=== PATIENT | male | born 1960 | race Caucasian/White ===

== ENCOUNTER 2021-03-07 15:03 | Inpatient (IN) | payer MEDICAID, SELFPAY ==
[2021-03-07 15:24] VITALS: BMI 26.6
[2021-03-07 15:30] VITALS: BP 107/71; PULSE 65; RESP 17; TEMP 36.8; O2SAT 96
[2021-03-07 20:44] VITALS: BP 105/70; PULSE 58; RESP 17; TEMP 36.7; O2SAT 99
[2021-03-08 06:00] VITALS: BP 98/59; PULSE 54; RESP 17; TEMP 36.8; O2SAT 98
--- NOTE | 2021-03-08 12:32 | NPU.GN ---
[facility] Topic:Coping Skills General Mood of Group:Refused group.
[2021-03-08 14:00] VITALS: BP 134/79; PULSE 88; RESP 18; TEMP 36.7; O2SAT 96
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
[2021-03-08 22:00] VITALS: BP 142/81; PULSE 79; RESP 16; TEMP 36.8; O2SAT 99
[2021-03-09 06:00] VITALS: BP 91/56; PULSE 65; RESP 17; TEMP 36.8; O2SAT 98
[2021-03-09] MEDS: fluoxetine 20 mg Capsule 40 MG PO (09:16)
[2021-03-09] MEDS: gabapentin 300 mg Capsule 600 MG PO ×3 (09:16→21:15)
[2021-03-09 14:00] VITALS: BP 105/67; PULSE 72; RESP 18; TEMP 36.7; O2SAT 97
--- NOTE | 2021-03-09 17:32 | P.PN_ITS ---
Subjective NPU Subjective: Interval history: Patient presents today reporting that he feels like he is still confused. We discussed it is likely his withdrawal from Valium. He reports that otherwise he is tolerating his medications being restarted. He reports that he is sleeping a lot and eating okay. We agreed that we would continue to monitor him as he adjusts from his overdose. Mental Status Exam MSE Comments: This is a well-nourished, well-developed, white male. Cooperative with exam in hospital scrubs, in mild to moderate distress, with limited grooming and eye contact. No abnormal movements except for mild psychomotor retardation. Speech was limited and decreased rate and volume with pauses. Mood described as confused; affect congruent. Thought process, organized. Thought content: patient denied any suicidal or homicidal ideation, there were no delusions reported or noted, patient denied any auditory or visual hallucinations. Attention, concentration, and memory appear intact but were not formally tested. He is alert and oriented times three. Insight and judgment are impaired, impulse control impaired. Vitals/I&O/Wt Last Vital Signs Temp 98.2 F 03/09/21 22:00 Pulse 71 03/09/21 22:00 Resp 18 03/09/21 22:00 BP 112/83 03/09/21 22:00 Pulse Ox 97 03/09/21 22:00 A&P Additional A&P Information (1) Altered mental status: (2) Mild benzodiazepine use disorder: (3) Alcohol use disorder: (4) Major depressive disorder: This is a 60-year-old, white male, with a long history of mental health issues, trauma and addiction issues, who presents with depression, active addiction, and recent reported suicide attempt off of his medication, endorsing a willingness to restart his medication. RECOMMENDATION AND PLAN: 1. Continue current medication. We will consider his Valium moving forward. 2. Encourage individual, group, and milieu therapy. 3. Continue q-15 minute checks for safety. 4. Initiate CIWA protocol in an attempt to get collateral information. Involuntary Hold Information 96 Hour Hold: 96 Hour Involuntary Admission: No Attestations NPU Medical Necessity Statement*: Inpatient hospitalization is medically necessary and the clinically appropriate intervention, at this time. We will monitor medications and make changes as indicated. Likely length of stay is 2-4 days. Coding Level of Care Code Acute Packaging Associate for Su Sweet
[2021-03-09] MEDS: quetiapine 100 mg Tablet PO (21:20)
[2021-03-09 22:00] VITALS: BP 112/83; PULSE 71; RESP 18; TEMP 36.8; O2SAT 97
[2021-03-10 06:00] VITALS: BP 133/72; PULSE 142; RESP 20; TEMP 36.5; O2SAT 100
[2021-03-10] MEDS: fluoxetine 20 mg Capsule 40 MG PO (08:30)
[2021-03-10] MEDS: gabapentin 300 mg Capsule 600 MG PO ×3 (08:30→21:29)
--- NOTE | 2021-03-10 08:48 | P.PN_ITS ---
Subjective NPU Subjective: Interval history: Ede presents today reporting that he is still feeling confused and unclear about his circumstances. We discussed the risk- benefit alternatives of taking a dose of Ativan now and is possibly rescheduling with the Valium maybe as needed and a tapering dose or possibly using Librium. We discussed that given his behavior with the Valium that long-term use or a large prescription seems unreasonable. He is hoping to feel better and less confused soon. Mental Status Exam MSE Comments: This is a well-nourished, well-developed, white male. Cooperative with exam in hospital scrubs, in mild distress, with limited grooming and eye contact. No abnormal movements except for mild psychomotor retardation. Speech was limited and decreased rate and volume with pauses. Mood described as about the same; affect congruent. Thought process, organized. Thought content: patient denied any suicidal or homicidal ideation, there were no delusions reported or noted, patient denied any auditory or visual hallucinations. Attention, concentration, and memory appear intact but were not formally tested. He is alert and oriented times three. Insight and judgment are impaired, impulse control impaired. Vitals/I&O/Wt Last Vital Signs Temp 97.7 F 03/10/21 06:00 Pulse 142 H 03/10/21 06:00 Resp 20 H 03/10/21 06:00 BP 133/72 03/10/21 06:00 Pulse Ox 100 03/10/21 06:00 A&P Additional A&P Information (1) Altered mental status: (2) Mild benzodiazepine use disorder: (3) Alcohol use disorder: (4) Major depressive disorder: This is a 60-year-old, white male, with a long history of mental health issues, trauma and addiction issues, who presents with depression, active addiction, and recent reported suicide attempt off of his medication, endorsing a willingness to restart his medication. RECOMMENDATION AND PLAN: 1. Continue current medication. We will consider a scheduled benzodiazepine like Librium for possible assistance with his likely withdrawal from the benzodiazepines. 2. Encourage individual, group, and milieu therapy. 3. Continue q-15 minute checks for safety. 4. Initiate CIWA protocol in an attempt to get collateral information. Involuntary Hold Information 96 Hour Hold: 96 Hour Involuntary Admission: No Attestations NPU Medical Necessity Statement*: Inpatient hospitalization is medically necessary and the clinically appropriate intervention, at this time. We will monitor medications and make changes as indicated. Likely length of stay is 2-4 days. Coding Level of Care Code Acute Biodiesel Processing Technician for Su Sweet
[2021-03-10] MEDS: LORazepam 2 mg Tablet PO (08:58)
[2021-03-10] MEDS: multivitamin therapeutic Tablet 1 TAB PO (10:00)
[2021-03-10] MEDS: thiamine 100 mg Tablet PO (10:00)
[2021-03-10] MEDS: folic acid 1 mg Tablet PO (10:00)
[2021-03-10 14:00] VITALS: BP 93/63; PULSE 50; RESP 16; TEMP 36.4; O2SAT 99
[2021-03-10] MEDS: hyDROXYzine 25 mg Capsule 50 MG PO ×2 (14:31→21:28)
--- NOTE | 2021-03-10 15:08 | PC.NURSE ---
Patient fall At approximately 1500 patient was standing at nurses desk talking and HEAD SILVERMAN saw him go down. He was assisted up and sat on the bench. Vitals taken and neuro checks. Dr Rivera, wash house supervisor, loading unit operator powder charging and community integration specialist notified. Patient stated he barely hit his head, no redness or pain. Patient thinks he might have stumbled on his blanket. Patient stable, will continue to monitor.
[2021-03-10 15:15] VITALS: BP 107/68; PULSE 49; RESP 16; TEMP 36.2; O2SAT 100
[2021-03-10 20:00] VITALS: BP 127/81; PULSE 79; RESP 17; TEMP 36.8
[2021-03-10 20:03] LABS: Add Urine Microscopic? NO; Charge for UA Resulting for Rev
[2021-03-10 20:15] LABS: Urine Appearance Clear (CLEAR); Urine Color Yellow (Yellow)
[2021-03-10 20:16] LABS: Bilirubin Urine Neg (Negative); Blood Urine Neg (Negative); Glucose Urine UA Norm (Normal); Ketones Urine Negative (Negative); Leukocyte Esterase Urine Negative (Negative); Nitrate Urine Negative (Negative); Protein Urine Neg (Negative); Specific Gravity, Urine 1.005 (1.005-1.030); Urobilinogen Urine Norm (Negative); pH Urine 6.5 (5-7)
[2021-03-10 20:40] VITALS: BP 127/81; PULSE 79; RESP 17; TEMP 36.8; O2SAT 99
[2021-03-10 20:57] LABS: Amphetamines Screen Urine Negative (Negative); Barbiturates Screen Urine Negative (Negative); Benzodiazepines Screen Urine Positive (Negative); Cocaine Screen Urine Negative (Negative); Opiate Screen Urine Negative (Negative); PCP Screen Urine Negative (Negative); THC Screen Urine Negative (Negative)
[2021-03-10] MEDS: quetiapine 100 mg Tablet PO (21:29)
--- NOTE | 2021-03-10 21:30 | PC.NURSE ---
Vistaril 50 mg given at patient request for anxiety.
[2021-03-11] VITALS: BP 127/81; PULSE 79; RESP 17; TEMP 36.8
[2021-03-11 04:00] VITALS: BP 127/81; PULSE 79; RESP 17; TEMP 36.8
[2021-03-11 06:00] VITALS: BP 127/81; PULSE 79; RESP 17; TEMP 36.8; O2SAT 99
--- NOTE | 2021-03-11 08:17 | PM.NPN ---
Subjective NPU Subjective: Interval history: Patient presents today reporting that he is feeling a little better. He presents for the first time with clearer communication. He reports that he is hoping that he can continue to get better and return home soon with the support of his family. He reports he is feeling a little shaky but much better than he was before. He was up and out of his room also, less isolative today. Mental Status Exam MSE Comments: This is a well-nourished, well-developed, white male. Cooperative with exam in hospital scrubs, in mild distress, with limited grooming and eye contact. No abnormal movements except for mild psychomotor retardation. Speech was more spontaneous and decreased rate and volume with less pauses. Mood described as a little better; affect congruent. Thought process, organized. Thought content: patient denied any suicidal or homicidal ideation, there were no delusions reported or noted, patient denied any auditory or visual hallucinations. Attention, concentration, and memory appear intact but were not formally tested. He is alert and oriented times three. Insight and judgment are impaired, impulse control impaired. Vitals/I&O/Wt Last Vital Signs Temp 98.2 F 03/11/21 06:00 Pulse 79 03/11/21 06:00 Resp 17 03/11/21 06:00 BP 127/81 03/11/21 06:00 Pulse Ox 99 03/11/21 06:00 A&P Additional A&P Information (1) Altered mental status: (2) Mild benzodiazepine use disorder: (3) Alcohol use disorder: (4) Major depressive disorder: This is a 60-year-old, white male, with a long history of mental health issues, trauma and addiction issues, who presents with depression, active addiction, and recent reported suicide attempt off of his medication, endorsing a willingness to restart his medication. RECOMMENDATION AND PLAN: 1. Continue current medication. 2. Encourage individual, group, and milieu therapy. 3. Continue q-15 minute checks for safety. 4. Encourage sober living treatment after discharge at the highest level of care to which he is willing to commit. Involuntary Hold Information 96 Hour Hold: 96 Hour Involuntary Admission: No Attestations NPU Medical Necessity Statement*: Inpatient hospitalization is medically necessary and the clinically appropriate intervention, at this time. We will monitor medications and make changes as indicated. Likely length of stay is 1-3 days. Likely discharge on Sunday. Coding Level of Care Code Acute Upholstery Tech for Su Sweet
[2021-03-11] MEDS: multivitamin therapeutic Tablet 1 TAB PO (09:04)
[2021-03-11] MEDS: gabapentin 300 mg Capsule 600 MG PO ×3 (09:04→21:15)
[2021-03-11] MEDS: fluoxetine 20 mg Capsule 40 MG PO (09:04)
[2021-03-11] MEDS: folic acid 1 mg Tablet PO (09:04)
[2021-03-11] MEDS: thiamine 100 mg Tablet PO (09:04)
[2021-03-11 14:00] VITALS: BP 114/73; PULSE 57; RESP 17; TEMP 36.4; O2SAT 100
[2021-03-11] MEDS: hyDROXYzine 25 mg Capsule 50 MG PO ×2 (15:24→21:16)
[2021-03-11] MEDS: LORazepam 2 mg Tablet PO (15:30)
[2021-03-11 20:44] VITALS: BP 125/75; PULSE 62; RESP 18; TEMP 36.7; O2SAT 98
[2021-03-11] MEDS: quetiapine 100 mg Tablet PO (21:16)
[2021-03-11] MEDS: trazodone 50 mg Tablet PO (21:16)
--- NOTE | 2021-03-11 21:31 | PC.NURSE ---
Addendum entered by Sania Faith RN 03/12/21 06:08: both prn's were effective. Original Note: PRN Vistaril 50mg po given for anxiety, Trazodone 50mg PO given for sleep onset
--- NOTE | 2021-03-11 21:31 | PC.NURSE ---
PM Assessment Pt denies SI/HI, denies pain. Reports central tremor that is moderate. Ciwa 0. Heart and lungs clear. Pt tearful, concerned about clarice and housing when he leaves. needs Sober living home. Expressed concerns about being jobless and relationships with family. Pt reports Not having any support and not talking to anyone. Reports feeling withdrawn at times. Pt states I share my story with youth and I enjoy this at [facility]. Would like to [facility]. Referral made. Pt mildly anxious. PRN. Visteril given and Trazodone requested
--- NOTE | 2021-03-11 21:36 | PC.CHAP ---
PT would like a visit from [facility]
--- NOTE | 2021-03-12 00:07 | PC.NURSE ---
[facility] discontinued Tremor pt has is a central tremor not related to current BAL and admission. Pt has not scored for medication and has been removed from [facility] d/t unit protocol
[2021-03-12 05:58] VITALS: BP 125/75; PULSE 62; RESP 18; TEMP 36.7; O2SAT 98
--- NOTE | 2021-03-12 08:32 | P.PN_ITS ---
Subjective NPU Subjective: Interval history: Patient presents today continuing to have occasional nocturnal enuresis which is likely secondary to his benzodiazepine use. He continues to be a little more engaged in his room during the day. He reports he sleeping well and eating okay. Starting to feel slightly less confused. Mental Status Exam MSE Comments: This is a well-nourished, well-developed, white male. Cooperative with exam in hospital scrubs, in mild distress, with limited grooming and eye contact. No abnormal movements except for mild psychomotor retardation. Speech was more spontaneous and decreased rate and volume with less pauses. Mood described as okay; affect congruent. Thought process, organized. Thought content: patient denied any suicidal or homicidal ideation, there were no delusions reported or noted, patient denied any auditory or visual hallucinations. Attention, concentration, and memory appear intact but were not formally tested. He is alert and oriented times three. Insight and judgment are impaired, impulse control impaired. Vitals/I&O/Wt Last Vital Signs Temp 98.1 F 03/12/21 05:58 Pulse 62 03/12/21 05:58 Resp 18 03/12/21 05:58 BP 125/75 03/12/21 05:58 Pulse Ox 98 03/12/21 05:58 A&P Additional A&P Information (1) Altered mental status: (2) Mild benzodiazepine use disorder: (3) Alcohol use disorder: (4) Major depressive disorder: This is a 60-year-old, white male, with a long history of mental health issues, trauma and addiction issues, who presents with depression, active addiction, and recent reported suicide attempt off of his medication, endorsing a willingness to restart his medication. RECOMMENDATION AND PLAN: 1. Continue current medication. 2. Encourage individual, group, and milieu therapy. 3. Continue q-15 minute checks for safety. 4. Encourage sober living treatment after discharge at the highest level of care to which he is willing to commit. Involuntary Hold Information 96 Hour Hold: 96 Hour Involuntary Admission: No Attestations NPU Medical Necessity Statement*: Inpatient hospitalization is medically necessary and the clinically appropriate intervention, at this time. We will monitor medications and make changes as indicated. Likely length of stay is 1-3 days. Likely discharge on Sunday. Coding Level of Care Code Acute Development Geologist for Su Sweet
[2021-03-12] MEDS: gabapentin 300 mg Capsule 600 MG PO ×3 (08:46→21:31)
[2021-03-12] MEDS: multivitamin therapeutic Tablet 1 TAB PO (08:46)
[2021-03-12] MEDS: fluoxetine 20 mg Capsule 40 MG PO (08:46)
[2021-03-12] MEDS: folic acid 1 mg Tablet PO (08:46)
[2021-03-12] MEDS: thiamine 100 mg Tablet PO (08:46)
[2021-03-12 14:00] VITALS: BP 125/75; PULSE 62; RESP 18; TEMP 36.7; O2SAT 98
[2021-03-12] MEDS: OLANZapine 5 mg ODT PO (15:03)
--- NOTE | 2021-03-12 15:09 | PC.NURSE ---
prn 1509 Administered 5mg Zyprexa Zydis for pt c/o anxiety from the recent Code 10 with another pt. Will continue to monitor pt.
[2021-03-12 20:54] VITALS: BP 111/59; PULSE 62; RESP 20; TEMP 36.6; O2SAT 97
[2021-03-12] MEDS: benztropine 1 mg Tablet PO (21:31)
[2021-03-12] MEDS: quetiapine 100 mg Tablet PO (21:31)
--- NOTE | 2021-03-13 04:15 | PC.NURSE ---
Tremors/Enuresis Pt moved closer to nurses station. Pt gait is unsteady, tremor seems to have increased. Pt provided with a urinal to aide him in urinating without fall, however, pt drops the urinal. This was not as affective as staff had hoped. On rounding this evening RN found pt in the bathroom attempting to clean up urine from the floor. Pts socks were wet, MAMMOGRAPHY TECHNICIAN came to help him clean up his mess and changed his socks. Pt is embarrased and seems to associate the recent administration of Seroquel with his urinary urgency and incontinent episodes. Due to his tremor, pt RN suggested PRN Cogentin to help with his tremor. It was mildly affective. Pt feels that 100mg of Seroquel may be to much for him. Pt has a fell on the unit and he shuffles his feet when he feels unsteady.
[2021-03-13 06:00] VITALS: BP 105/71; PULSE 54; RESP 17; TEMP 36.7; O2SAT 100
[2021-03-13] MEDS: multivitamin therapeutic Tablet 1 TAB PO (08:23)
[2021-03-13] MEDS: fluoxetine 20 mg Capsule 40 MG PO (08:23)
[2021-03-13] MEDS: thiamine 100 mg Tablet PO (08:23)
[2021-03-13] MEDS: gabapentin 300 mg Capsule 600 MG PO ×3 (08:23→22:11)
[2021-03-13] MEDS: folic acid 1 mg Tablet PO (08:23)
--- NOTE | 2021-03-13 09:46 | PM.NPN ---
Subjective NPU Subjective: Interval history: Patient resents today reporting that he is feeling a little better but still having moments of confusion. We continued to talk about the impact of his benzodiazepine use at his age in addition to withdrawal at this age. We discussed the conflict of trying to get his withdrawal together and trying to avoid benzodiazepines. We discussed Dr. Plascencia coming tomorrow and serving as a sort of second opinion as to how we should move forward. Still having the nocturnal enuresis likely secondary to the benzos. Mental Status Exam MSE Comments: This is a well-nourished, well-developed, white male. Cooperative with exam in hospital scrubs, in mild distress, with limited grooming and eye contact. No abnormal movements except for mild psychomotor retardation. Speech was more spontaneous and decreased rate and volume with less pauses. Mood described as a little better; affect congruent. Thought process, organized. Thought content: patient denied any suicidal or homicidal ideation, there were no delusions reported or noted, patient denied any auditory or visual hallucinations. Attention, concentration, and memory appear intact but were not formally tested. He is alert and oriented times three. Insight and judgment are limited, impulse control impaired. Vitals/I&O/Wt Last Vital Signs Temp 97.9 F 03/12/21 20:54 Pulse 62 03/12/21 20:54 Resp 20 H 03/12/21 20:54 BP 111/59 03/12/21 20:54 Pulse Ox 97 03/12/21 20:54 A&P Additional A&P Information (1) Altered mental status: (2) Mild benzodiazepine use disorder: (3) Alcohol use disorder: (4) Major depressive disorder: This is a 60-year-old, white male, with a long history of mental health issues, trauma and addiction issues, who presents with depression, active addiction, and recent reported suicide attempt off of his medication, endorsing a willingness to restart his medication. RECOMMENDATION AND PLAN: 1. Continue current medication. 2. Encourage individual, group, and milieu therapy. 3. Continue q-15 minute checks for safety. 4. Encourage sober living treatment after discharge at the highest level of care to which he is willing to commit. Involuntary Hold Information 96 Hour Hold: 96 Hour Involuntary Admission: No Attestations NPU Medical Necessity Statement*: Inpatient hospitalization is medically necessary and the clinically appropriate intervention, at this time. We will monitor medications and make changes as indicated. Likely length of stay is 1-3 days. Coding Level of Care Code Acute Power Plant Operators Supervisor for Su Sweet
[2021-03-13 14:00] VITALS: BP 109/66; PULSE 72; RESP 17; TEMP 36.3; O2SAT 98
[2021-03-13 20:09] VITALS: BP 123/85; PULSE 74; RESP 20; TEMP 36.8; O2SAT 99
[2021-03-13] MEDS: trazodone 50 mg Tablet PO (22:10)
[2021-03-13] MEDS: hyDROXYzine 25 mg Capsule 50 MG PO (22:11)
[2021-03-13] MEDS: quetiapine 100 mg Tablet PO (22:12)
--- NOTE | 2021-03-13 22:15 | PC.NURSE ---
pt requested sleep and anxiety meds. trazodone 50mg po for sleep and vistaril 50mg po mfor anxiety given.
[2021-03-14 06:00] VITALS: BP 111/75; PULSE 61; RESP 17; TEMP 36.6; O2SAT 99
[2021-03-14] MEDS: thiamine 100 mg Tablet PO (09:11)
[2021-03-14] MEDS: fluoxetine 20 mg Capsule 40 MG PO (09:11)
[2021-03-14] MEDS: multivitamin therapeutic Tablet 1 TAB PO (09:12)
[2021-03-14] MEDS: folic acid 1 mg Tablet PO (09:12)
[2021-03-14] MEDS: gabapentin 300 mg Capsule 600 MG PO ×3 (09:12→21:31)
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
[2021-03-14 14:00] VITALS: BP 101/71; PULSE 72; RESP 16; TEMP 36.6; O2SAT 97
--- NOTE | 2021-03-14 20:17 | CTR_ITS ---
PROCEDURE INFORMATION: Exam: CT Head Without Contrast Exam date and time: 03/14/2021 8:17 PM Age: 60 years old Clinical indication: Altered mental status/memory loss and dizziness; Confusion or disorientation TECHNIQUE: Imaging protocol: Computed tomography of the head without contrast. Radiation optimization: All CT scans at this facility use at least one of these dose optimization techniques: automated exposure control; mA and/or kV adjustment per patient size (includes targeted exams where dose is matched to clinical indication); or iterative reconstruction. COMPARISON: No relevant prior studies available. RADIATION DOSE METRICS: Total DLP (mGy-cm): 952.35 FINDINGS: Brain: No hemorrhage. No cerebral edema. Mild diffuse cerebral atrophy. Unremarkable white matter. No mass effect. Cerebral ventricles: No ventriculomegaly. Paranasal sinuses: Visualized sinuses are unremarkable. No fluid levels. Mastoid air cells: Visualized mastoid air cells are well aerated. Bones/joints: Unremarkable. No acute fracture. Soft tissues: Unremarkable. CT/CT head wo con* [id number] IMPRESSION: No acute intracranial abnormality. Radiation Dose CTDIVOL = (mGy): DLP = 952.35 (mGy-cm)
[2021-03-14] MEDS: quetiapine 100 mg Tablet PO (21:31)
[2021-03-14 22:00] VITALS: BP 117/72; PULSE 105; RESP 15; TEMP 37.2; O2SAT 98
[2021-03-15 06:00] VITALS: BP 107/66; PULSE 73; RESP 21; TEMP 36.6; O2SAT 97
[2021-03-15] MEDS: thiamine 100 mg Tablet PO (08:15)
[2021-03-15] MEDS: fluoxetine 20 mg Capsule 40 MG PO (08:15)
[2021-03-15] MEDS: folic acid 1 mg Tablet PO (08:15)
[2021-03-15] MEDS: multivitamin therapeutic Tablet 1 TAB PO (08:15)
[2021-03-15] MEDS: gabapentin 300 mg Capsule 600 MG PO ×3 (08:16→21:29)
[2021-03-15] MEDS: hyDROXYzine 25 mg Capsule 50 MG PO (11:31)
--- NOTE | 2021-03-15 11:31 | PC.NURSE ---
PRN VISTARIL 50 MG GIVEN PO PER PT C/O ANXIETY
--- NOTE | 2021-03-15 13:13 | PM.NPN ---
Subjective NPU Subjective: Interval history: I discussed the patient's care with the treatment team. He has had difficulty contacting the [facility] to put in his application. They note that he continues to be confused at times. The patient also acknowledges that he is confused. One thing he says happens is that he has vivid dreams and is not sure whether they really happened or not. He says he is emotionally numb but he gets agitated. He does have the thought that it would be easier on everybody if I went before they did. He denies auditory and visual hallucinations. He denies side effects from his medicine. He talked some about having spent ages [age] in the [facility]. It says growing up in a [facility] has a significant impact on you. I discussed the results of his CT scan with him. Mental Status Exam MSE Comments: This is a well-nourished, well-developed, white male. Cooperative with exam in hospital scrubs, in mild to moderate distress, with limited grooming and eye contact. No abnormal movements or tics noted. He does have some psychomotor agitation. Speech was spontaneous and and a bit rapid. Mood described as nervous; affect congruent. Thought process was disorganized today. Thought content: patient has passive but not active suicidal ideation. No homicidal ideation. No delusions reported or noted. The patient denied any auditory or visual hallucinations. Attention, concentration, and memory are somewhat impaired. He is alert and oriented times three today. Insight and judgment are limited, impulse control impaired. Vitals/I&O/Wt Last Vital Signs Temp 97.9 F 03/15/21 06:00 Pulse 73 03/15/21 06:00 Resp 21 H 03/15/21 06:00 BP 107/66 03/15/21 06:00 Pulse Ox 97 03/15/21 06:00 A&P Assessment and plan (1) Major depressive disorder: Status: Acute (2) Alcohol use disorder: Status: Acute (3) Mild benzodiazepine use disorder: Status: Acute (4) Altered mental status: Status: Acute Additional A&P Information This is a 60-year-old, white male, with a long history of mental health issues, trauma and addiction issues, who presents with depression, active addiction, and recent reported suicide attempt off of his medication, endorsing a willingness to restart his medication. Is not completely clear what is causing his confusional episodes. RECOMMENDATION AND PLAN: 1. Continue current medication. 2. Encourage individual, group, and milieu therapy. 3. Continue q-15 minute checks for safety. 4. Encourage sober living treatment after discharge at the highest level of care to which he is willing to commit. 5. We will get a CT scan of his head without contrast to rule out an intracranial process as the origin of his confusion. There was no intracranial process noted. Involuntary Hold Information 96 Hour Hold: 96 Hour Involuntary Admission: No Attestations NPU Medical Necessity Statement*: Inpatient hospitalization is medically necessary and the clinically appropriate intervention, at this time. Given his level of confusion, he would not be able to live on his own. We will monitor medications and make changes as indicated. Likely length of stay is 2-4 more days. Coding Level of Care Code Acute Clothes Drier Assembler for g Fwd Diagnoses Major depressive disorder F32.9 Alcohol use disorder Mild benzodiazepine use disorder F13.10 Altered mental status R41.82
[2021-03-15 14:00] VITALS: BP 130/70; PULSE 86; RESP 20; TEMP 36.7; O2SAT 98
[2021-03-15] MEDS: quetiapine 100 mg Tablet PO (21:28)
[2021-03-15] MEDS: trazodone 50 mg Tablet PO (21:29)
--- NOTE | 2021-03-15 21:30 | PC.NURSE ---
Trazodone 50mg PO given for sleep onset.
[2021-03-15 22:00] VITALS: BP 101/58; PULSE 72; RESP 18; TEMP 37.1; O2SAT 96
[2021-03-16 06:00] VITALS: BP 125/79; PULSE 70; RESP 18; TEMP 36.4; O2SAT 96
--- NOTE | 2021-03-16 06:14 | PC.NURSE ---
Pt fought sleep and became increasingly agitated until he finally fell asleep in his room. He entered several other patient rooms, stripped their beds, went into his room, removed his clothing, pt believes that the lobby area is where his clothing is for him to change and leave. Pt is upset and wants to call sister and then forgets that he asked. Pt seems to become more frustrated, interactive, and agitated as the evening progressed. He is forgetful and confused. He fails to answer questions appropriately.Mentation declines greatly and his anxiety seem to increase. Pt is unable to determine where his room is and climbed into another patients bed. On 2 occasions, this patient has urinated in floor. His sex drive is intact as he has repeatedly attempted to reach climax in his room. Constant redirection is necessary when in the halls. His attitude becomes aggressive in nature when he seems lost
[2021-03-16] MEDS: fluoxetine 20 mg Capsule 40 MG PO (10:16)
[2021-03-16] MEDS: folic acid 1 mg Tablet PO (10:16)
[2021-03-16] MEDS: gabapentin 300 mg Capsule 600 MG PO (10:17)
[2021-03-16] MEDS: multivitamin therapeutic Tablet 1 TAB PO (10:17)
[2021-03-16] MEDS: thiamine 100 mg Tablet PO (10:17)
--- NOTE | 2021-03-16 12:24 | P.PN_ITS ---
Subjective NPU Subjective: Interval history: I met with the treatment team to discuss the patient's progress. He continues to have significant confusion that does not seem to let up. He got in bed with another patient, confused about where his room was. He was unable to fill out an application for a residential on his own. I spoke with the patient's mother, who says she is quite worried about him. She has not seen him confused like this before. The patient agrees that he has confusion, but the confusion prevents him from engaging in much useful conversation about it. He has been agitated this morning. He does say that he has not had the experience of being unable to tell the difference between dreams and reality today. I asked Dr. Tovar to consult and make recommendations for further medical work-up to assess the patient's confusion. Mental Status Exam MSE Comments: This is a well-nourished, well-developed, and fairly well groomed white male. Cooperative with exam in hospital scrubs, but in moderate distress. Fair eye contact. No abnormal movements or tics noted. He does have some psychomotor agitation. Speech was spontaneous and and a bit rapid. Mood described as nervous; affect congruent. Thought process continues to be disorganized. Thought content: patient has passive but not active suicidal ideation. No homicidal ideation. No delusions reported or noted. The patient denied any auditory or visual hallucinations. Attention, concentration, and memory are somewhat impaired. He is alert and oriented to person and situation. Insight and judgment are limited, impulse control impaired. Vitals/I&O/Wt Last Vital Signs Temp 98.4 F 03/16/21 14:00 Pulse 73 03/16/21 14:00 Resp 16 03/16/21 14:00 BP 111/70 03/16/21 14:00 Pulse Ox 98 03/16/21 14:00 Data NPU : 03/16/21 13:13 03/16/21 13:13 A&P Assessment and plan (1) Hepatitis C: Status: Acute (2) Confusion: Status: Acute (3) Major depressive disorder: Status: Acute (4) Alcohol use disorder: Status: Acute (5) Mild benzodiazepine use disorder: Status: Acute (6) Altered mental status: Status: Acute Additional A&P Information This is a 60-year-old, white male, with a long history of mental health issues, trauma and addiction issues, who presents with depression, active addiction, and recent reported suicide attempt off of his medication, endorsing a willingness to restart his medication. Is not completely clear what is causing his confusional episodes. We appreciate Dr. Tovar's evaluation and recommendations, which are as follows: (1) Confusion: Etiology is not completely clear. Both patient, and relative(mother) believe that confusion, slurred speech have started since this hospital stay. It is possible this could be medicine related if he is not used to taking the medication he has been receiving on his home medicine list. It is also possible this could be related to alcoholic encephalopathy, hepatic encephalopathy, or other etiology. There is a vague past history of neurosyphilis that has been treated as well. I ordered a B12 level this morning that was normal. I ordered an ammonia level this morning that was normal. TSH, CT head has been checked by psychiatry and within normal limits Psychiatry has maintained him on thiamine, and folate which is appropriate. At this point I believe it would be prudent to reduce his Neurontin to 300 mg 3 times daily, and consider tapering this off if improvement is made in his confusion and concerns of slurred speech. Could consider other medication reductions in Seroquel or trihexyphenidyl but will defer to psychiatry. We decreased the Prozac from 40 mg daily to 20 mg. We decreased trihexyphenidyl from 2 mg daily to 1 mg daily. We will consider the decrease in Seroquel as well. (2) Hepatitis C: Unknown if this has been treated in the past. Ammonia level was ordered by me this morning and not elevated (3) Alcohol use disorder: (4) Major depressive disorder: The patient reports being depressed by the confusion he is experiencing. It does not appear that his depression is causing his confusion because he is cognizant of his confusion and is disturbed by it in a way that people with severe depression are usually not. Additional A&P Information History of neurosyphilis. We will try to obtain old records regarding its treatment and diagnosis to see if it was sufficient. Involuntary Hold Information 96 Hour Hold: 96 Hour Involuntary Admission: No Attestations NPU Medical Necessity Statement*: Inpatient hospitalization is medically necessary and the clinically appropriate intervention, at this time. Given his level of confusion, he would not be able to live on his own. We will monitor medications and make changes as indicated. Likely length of stay is 5-7 more days. Coding Level of Care Code Acute Patient Carrier for g Fwd Diagnoses Hepatitis C B19.20 Confusion R41.0 Major depressive disorder F32.9 Alcohol use disorder Mild benzodiazepine use disorder F13.10 Altered mental status R41.82
[2021-03-16 13:39] LABS: Basophils % 0.3 %; Eosinophils # 0.2 10^3/uL (0.0-0.8); Eosinophils % 3.3 %; Hematocrit 41.1 % (42.0-52.0); Hemoglobin 14.1 g/dL (11.7-16.6); Lymphocytes # 1.6 10^3/uL (0.8-4.8); Lymphocytes % 22.5 %; Mean Corpuscular HGB Conc 34.3 g/dL (30.0-36.0); Mean Corpuscular Hemoglobin 31.7 pg (28.0-34.0); Mean Corpuscular Volume 92.4 fl (80-94); Mean Platelet Volume 9.5 fL (7.4-10.4); Monocytes # 0.6 10^3/uL (0.2-0.9); Neutrophils # 4.57 10^3/uL (1.8-7.7); Neutrophils % 65.6 %; Nucleated Red Blood Cells % 0 %; Platelet Count 214 10^3/cmm (130-400); Red Blood Count 4.45 10^6/uL (4.1-5.3); Red Cell Distribution Width 13.2 % (12.1-15.1)
[2021-03-16 14:00] VITALS: BP 111/70; PULSE 73; RESP 16; TEMP 36.9; O2SAT 98
[2021-03-16 14:01] LABS: Ammonia 45 umol/L (16-60)
[2021-03-16 14:21] LABS: Alanine Aminotransferase 24 U/L (0-41); Alkaline Phosphatase 75 IU/L (40-130); Anion Gap 16.9 (5-19); Aspartate Amino Transferase 26 U/L (0-40); Blood Urea Nitrogen 12 mg/dL (6-20); C Reactive Protein 0.5 mg/L (0.0-4.9); Calcium 9.4 mg/dL (8.5-10.5); Carbon Dioxide 23 mmol/L (22-29); Chloride 100 mmol/L (98-107); Globulin 3.1 g/dL (1.3-4.6); Glomerular Filtration Rate 99.3 mL/min (90-130); Glucose 106 mg/dL (65-115); Osmolality Calculated 282 mOsm/kg (285-295); Potassium 3.9 mmol/L (3.5-5.1); Sodium 136 mmol/L (136-145); Thyroid Stimulating Hormone 0.52 uIU/mL (0.27-4.20); Total Bilirubin 0.4 mg/dL (0.15-1.2); Total Protein 7.1 g/dL (6.6-8.7); Vitamin B12 327 pg/mL (232-1245)
--- NOTE | 2021-03-16 14:28 | P.CONIM_ITS ---
Providers/Reason For Consult Consulting Physician/Specialty*: Dean Tovar MD, hospitalist Reason for Consult*: Confusion Attending Physician: Mario Plascencia MD History of Present Illness History of Present Illness Ede Maier is a 60 year old male who was admitted March 08 from an outlying hospital with concerns of alcoholism, drug use, and suicidal ideation. While he has been hospitalized he has had some agitation, some confusion. Secondary to the confusion being persistent I was consulted to see if any other concerns could be identified. Ramiro reports he is feeling okay today, but does feel confused at times. He gives an example of not being able to find his room, and needing his name put on the door. He denies any hallucinations. He reports no physical problems. He thinks the confusion has been going on just since his admission. I discussed this with his mother, and reports that she believes this as well. I reviewed his home medication with him, but that he only takes his prescribed medication sporadically if that. In reviewing his records, there is a note of neurosyphilis. Patient believes he has been treated fully for this and mother confirms this. They believe treatment was provided in [place] at [facility] or [facility]. He reports he also has a history of hepatitis C, and is not knowledgeable if it is active. Patient denies any current nausea, headache. Review of Systems General: Reports: 10 or more systems reviewed and unremarkable except in HPI and below Const: Denies: fever(s) or chills Eyes: Denies: change in vision ENMT: Denies: throat pain Card: Denies: chest pain Resp: Denies: dyspnea GI: Denies: abdominal pain : Denies: flank pain Musc: Denies: neck pain Skin/Breast: Denies: rash Psych: Reports: anxiety, depression and memory loss Endo: Denies: polyuria Naveed/Lymph: Denies: easy bruising All/Imm: Denies: urticaria Meds/Allergies Home Medications and Allergies Home Medications Medication Instructions Recorded Confirmed Last Taken Type diazepam [Valium] 10 mg PO QID 03/07/21 03/07/21 Unknown History fluoxetine [Prozac] 40 mg PO DAILY 03/07/21 03/07/21 Unknown History gabapentin 600 mg PO TID 03/07/21 03/07/21 Unknown History [id number]-[id number]-[id number] 1 tab PO DAILY 03/07/21 03/07/21 Unknown History [] quetiapine [Seroquel] 100 mg PO BEDTIME 03/07/21 03/07/21 Unknown History trihexyphenidyl 2 mg PO TID 03/07/21 03/07/21 Unknown History Allergies Allergy/AdvReac Type Severity Reaction Status Date / Time codeine Allergy ALGY-Anaphy Verified 03/07/21 18:14 laxis diphenhydramine Allergy Unknown Verified 03/07/21 18:14 [From Benadryl] Current Medications Current Medications Generic Name Dose Route Start Last Admin Trade Name Freq PRN Reason Stop Dose Admin Benztropine Mesylate 1 mg 03/07/21 15:30 03/12/21 21:31 Benztropine 1 Mg Tablet PO 1 mg BID PRN Administration Mild Extrapyramidal symptoms Fluoxetine HCl 40 mg 03/09/21 09:00 03/16/21 10:16 Fluoxetine 20 Mg Capsule PO 40 mg DAILY SHANNAN Administration Folic Acid 1 mg 03/10/21 09:00 03/16/21 10:16 Folic Acid 1 Mg Tablet PO 1 mg DAILY SHANNAN Administration Gabapentin 600 mg 03/09/21 09:00 03/16/21 10:17 Gabapentin 300 Mg Capsule PO 600 mg TID SHANNAN Administration Hydroxyzine Pamoate 50 mg 03/07/21 15:30 03/15/21 11:31 Hydroxyzine 25 Mg Capsule PO 50 mg Q6H PRN Administration ANXIETY Lorazepam 2 mg 03/10/21 08:50 03/11/21 15:30 Lorazepam 2 Mg Tablet PO 2 mg PROTOCOL PRN Administration WITHDRAWAL Protocol Multivitamins Therapeutic 1 tab 03/10/21 09:00 03/16/21 10:17 Multivitamin Therapeutic Tablet PO 1 tab DAILY SHANNAN Administration Olanzapine 5 mg 03/07/21 15:30 03/12/21 15:03 Olanzapine 5 Mg Odt PO 5 mg Q4H PRN Administration Agitation/Psychosis Quetiapine Fumarate 100 mg 03/09/21 21:00 03/15/21 21:28 Quetiapine 100 Mg Tablet PO 100 mg BEDTIME SHANNAN Administration Thiamine Mononitrate 100 mg 03/10/21 09:00 03/16/21 10:17 Thiamine 100 Mg Tablet PO 100 mg DAILY SHANNAN Administration Trazodone HCl 50 mg 03/13/21 23:52 03/15/21 21:29 Trazodone 50 Mg Tablet PO 50 mg BEDTIME PRN Administration SLEEP Trihexyphenidyl HCl 2 mg 03/09/21 09:00 03/16/21 10:17 Trihexyphenidyl 2 Mg Tablet PO 2 mg TID SHANNAN Administration PFSH Acute PFSH: Medical History (Updated 03/16/21 @ 14:44 by Dean Tovar MD) Alcohol use disorder COPD (chronic obstructive pulmonary disease) Drug use Hepatitis C History of neurosyphilis Major depressive disorder Tobacco dependency Surgical History (Updated 03/16/21 @ 14:35 by Dean Tovar MD) History of shoulder surgery Family History (Updated 03/16/21 @ 14:35 by Dean Tovar MD) Other Cancer Stroke Social History (Updated 03/16/21 @ 14:36 by Dean Tovar MD) Smoking and tobacco status: current every day smoker Alcohol intake: current Substance/Drug Use: current Vitals/I&O/Wt Last Vital Signs Temp 97.6 F 03/16/21 06:00 Pulse 70 03/16/21 06:00 Resp 18 03/16/21 06:00 BP 125/79 03/16/21 06:00 Pulse Ox 96 03/16/21 06:00 Physical Exam Narrative: EXAM NARRATIVE: General exam is a white male, conversant and alert to self, year, president but not to month. Calm during my visit. HEENT: Atraumatic and normocephalic. Oropharynx clear. Neck is supple no lymphadenopathy or thyromegaly Cardiovascular regular rate and rhythm without murmur, no S3 or S4 Lungs clear to auscultation bilaterally. No wheezes or crackles Abdomen is soft, positive bowel sounds. No obvious organomegaly exam is deferred Extremities no cyanosis clubbing or edema, cap refill brisk Skin no rash Neuro no obvious focal deficits Data Other Data: Other data: LFTs normal TSH normal B12 level normal Ammonia level normal CRP normal Urinalysis checked on admission and normal CT head normal A&P Assessment and plan (1) Confusion: Etiology is not completely clear. Both patient, and relative(mother) believe that confusion, slurred speech have started since this hospital stay. It is possible this could be medicine related if he is not used to taking the medication he has been receiving on his home medicine list. It is also possible this could be related to alcoholic encephalopathy, hepatic encephalopathy, or other etiology. There is a vague past history of neurosyphilis that has been treated as well. I ordered a B12 level this morning that was normal. I ordered an ammonia level this morning that was normal. TSH, CT head has been checked by psychiatry and within normal limits Psychiatry has maintained him on thiamine, and folate which is appropriate. At this point I believe it would be prudent to reduce his Neurontin to 300 mg 3 times daily, and consider tapering this off if improvement is made in his confusion and concerns of slurred speech. Could consider other medication reductions in Seroquel or trihexyphenidyl but will defer to psychiatry. Status: Acute (2) Hepatitis C: Unknown if this has been treated in the past. Ammonia level was ordered by me this morning and not elevated Status: Acute (3) Alcohol use disorder: Status: Acute (4) Major depressive disorder: Status: Acute Additional A&P Information History of neurosyphilis. We will try to obtain old records regarding its treatment and diagnosis to see if it was sufficient. Thank you for this consultation I will continue to follow along with you, by reevaluating the patient tomorrow after changes are made. Consult Attestations Medical Necessity Statement: As per primary Time Spent in Patient Care: Greater than 35 minutes Coding Level of Care Code Acute Team Leader/Research Psychologist for Su Sweet Diagnoses Confusion R41.0 Hepatitis C B19.20 Alcohol use disorder Major depressive disorder F32.9
[2021-03-16] MEDS: gabapentin 300 mg Capsule PO ×2 (15:24→20:36)
[2021-03-16] MEDS: trazodone 50 mg Tablet PO (20:35)
[2021-03-16] MEDS: quetiapine 100 mg Tablet PO (20:35)
[2021-03-16] MEDS: hyDROXYzine 25 mg Capsule 50 MG PO (20:36)
[2021-03-16 21:53] VITALS: BP 114/78; PULSE 66; RESP 18; O2SAT 98
[2021-03-17 06:00] VITALS: RESP 18
--- NOTE | 2021-03-17 06:55 | PC.NURSE ---
Patient was moved to room 105-2, across from nurses station. Patient had, probably the best night since being on the unit. He slept from about 2100 - 0530. He did not experience any incontinence. He was able to find his room repeatedly with minimal direction. He had a marked improvement over past nights. It is this nursing shifts opinion to keep Mr. Maier in 150-2 if at all possible.
--- NOTE | 2021-03-17 07:45 | PM.PN ---
Subjective Subjective: Interval history: Ede reports he feels much better. Having less issues remembering. Nursing reports he had his best night, last night in the hospital. Medications: Reviewed: Yes Vitals/I&O/Wt Last Vital Signs Temp 98.4 F 03/16/21 14:00 Pulse 66 03/16/21 21:53 Resp 18 03/17/21 06:00 BP 114/78 03/16/21 21:53 Pulse Ox 98 03/16/21 21:53 Physical Exam Narrative: EXAM NARRATIVE: General exam is a white male, conversant and calm without slurred speech. Still does not know the month but otherwise alert and oriented. Neck is supple no lymphadenopathy or thyromegaly Cardiovascular regular rate and rhythm without murmur, no S3 or S4 Lungs clear to auscultation bilaterally. No wheezes or crackles Abdomen is soft, positive bowel sounds. No obvious organomegaly Extremities no cyanosis clubbing or edema, cap refill brisk Data : 03/16/21 13:13 03/16/21 13:13 A&P Assessment and plan (1) Confusion: Etiology is not completely clear. Both patient, and relative(mother) believe that confusion, slurred speech have started since this hospital stay. It is possible this could be medicine related if he is not used to taking the medication he has been receiving on his home medicine list. It is also possible this could be related to alcoholic encephalopathy, hepatic encephalopathy, or other etiology. There is a vague past history of neurosyphilis that has been treated as well. I ordered a B12 level this morning that was normal. I ordered an ammonia level this morning that was normal. TSH, CT head has been checked by psychiatry and within normal limits Psychiatry has maintained him on thiamine, and folate which is appropriate. At this point I believe it would be prudent to reduce his Neurontin to 300 mg 3 times daily, and consider tapering this off if improvement is made in his confusion and concerns of slurred speech. Could consider other medication reductions in Seroquel or trihexyphenidyl but will defer to psychiatry. Multiple medicines have been reduced since yesterday including Neurontin, Artane. He had shown improvement with these changes. Still awaiting records regarding past history of neurosyphilis. Status: Acute (2) Hepatitis C: Unknown if this has been treated in the past. Ammonia level was ordered by me this morning and not elevated Status: Acute (3) Alcohol use disorder: Status: Acute (4) Major depressive disorder: Status: Acute Additional A&P Information History of neurosyphilis. We will try to obtain old records regarding its treatment and diagnosis to see if it was sufficient. Still awaiting records Thank you for this consultation At this point I will follow peripherally, awaiting records from [place] regarding previous diagnosis of neurosyphilis. Please call me with any questions. Attestations Medical Necessity Statement*: As per primary Coding Level of Care Code Acute Negative Checker for g Fwd Diagnoses Confusion R41.0 Hepatitis C B19.20 Alcohol use disorder Major depressive disorder F32.9
[2021-03-17] MEDS: multivitamin therapeutic Tablet 1 TAB PO (09:17)
[2021-03-17] MEDS: gabapentin 300 mg Capsule PO ×3 (09:18→20:52)
[2021-03-17] MEDS: folic acid 1 mg Tablet PO (09:18)
[2021-03-17] MEDS: thiamine 100 mg Tablet PO (09:18)
[2021-03-17 14:00] VITALS: BP 100/66; PULSE 76; RESP 16; TEMP 36.6; O2SAT 99
--- NOTE | 2021-03-17 15:27 | PM.NPN ---
Subjective NPU Subjective: Interval history: Met with the treatment team to discuss the patient's progress. We feel he probably needs to go to a [facility] facility after discharge from the hospital, unless he make significant improvements soon. I discussed the patient's care with Dr. Tovar again, his concern was that the gabapentin was causing the patient's confusion. He is hoping that with decreasing the dose, the patient's confusion will tara. The patient says that he is in a better mood today. He points out that he has not gotten mad. He says, I am not letting things get to me. On the other hand, his thoughts do become confused and he rambles off in different directions. He talked about a disturbance on the unit and then switched to the situation with his ex- without making any connection. He talked about watching the weather than watching the war without making any connections either. Mental Status Exam MSE Comments: This is a well-nourished, well-developed, and fairly well groomed white male. Cooperative with exam in hospital scrubs, and he is in less distress. Fair eye contact. No abnormal movements or tics noted. He does have some psychomotor agitation. Speech was spontaneous and and a bit rapid. Mood described as improved; affect congruent, he is brighter. Thought process continues to be disorganized. Thought content: patient has passive but not active suicidal ideation. No homicidal ideation. No delusions reported or noted. The patient denied any auditory or visual hallucinations. Attention, concentration, and memory are somewhat impaired. He is alert and oriented to person and situation. He says today is the 23rd, but cannot name any month or year. He thinks he is at [facility] in [place]. Insight and judgment are limited but improved, impulse control impaired. Vitals/I&O/Wt Last Vital Signs Temp 97.9 F 03/17/21 14:00 Pulse 76 03/17/21 14:00 Resp 16 03/17/21 14:00 BP 100/66 03/17/21 14:00 Pulse Ox 99 03/17/21 14:00 Data NPU : 03/16/21 13:13 03/16/21 13:13 A&P Assessment and plan (1) Hepatitis C: Status: Acute (2) Confusion: Status: Acute (3) Major depressive disorder: Status: Acute (4) Alcohol use disorder: Status: Acute (5) Mild benzodiazepine use disorder: Status: Acute (6) Altered mental status: Status: Acute Additional A&P Information This is a 60-year-old, white male, with a long history of mental health issues, trauma and addiction issues, who presents with depression, active addiction, and recent reported suicide attempt off of his medication, endorsing a willingness to restart his medication. Is not completely clear what is causing his confusional episodes. We appreciate Dr. Tovar's evaluation and recommendations, which are as follows: (1) Confusion: Etiology is not completely clear. Both patient, and relative(mother) believe that confusion, slurred speech have started since this hospital stay. It is possible this could be medicine related if he is not used to taking the medication he has been receiving on his home medicine list. It is also possible this could be related to alcoholic encephalopathy, hepatic encephalopathy, or other etiology. There is a vague past history of neurosyphilis that has been treated as well. I ordered a B12 level this morning that was normal. I ordered an ammonia level this morning that was normal. TSH, CT head has been checked by psychiatry and within normal limits Psychiatry has maintained him on thiamine, and folate which is appropriate. At this point I believe it would be prudent to reduce his Neurontin to 300 mg 3 times daily, and consider tapering this off if improvement is made in his confusion and concerns of slurred speech. Could consider other medication reductions in Seroquel or trihexyphenidyl but will defer to psychiatry. Patient is slightly improved, at least in mood an outlook since we decreased his medications. We decreased the Prozac from 40 mg daily to 20 mg. We decreased trihexyphenidyl from 2 mg daily to 1 mg 3 times daily, and will decrease further to 0.5 mg 3 times daily. We will decrease in Seroquel to 50 mg at bedtime, starting tomorrow. We will decrease Neurontin further, to 200 mg 3 times daily, starting tomorrow as well. (2) Hepatitis C: Unknown if this has been treated in the past. Ammonia level was ordered by me this morning and not elevated (3) Alcohol use disorder: (4) Major depressive disorder: The patient reports being depressed by the confusion he is experiencing. It does not appear that his depression is causing his confusion because he is cognizant of his confusion and is disturbed by it in a way that people with severe depression are usually not. Additional A&P Information History of neurosyphilis. We will try to obtain old records regarding its treatment and diagnosis to see if it was sufficient. Still awaiting records. Involuntary Hold Information 96 Hour Hold: 96 Hour Involuntary Admission: No Attestations NPU Medical Necessity Statement*: Inpatient hospitalization is medically necessary and the clinically appropriate intervention, at this time. Given his level of confusion, he would not be able to live on his own. We will monitor medications and make changes as indicated. Likely length of stay is 5-7 more days. Coding Level of Care Code Acute Market Development Director for [facility] Fwd Diagnoses Hepatitis C B19.20 Confusion R41.0 Major depressive disorder F32.9 Alcohol use disorder Mild benzodiazepine use disorder F13.10 Altered mental status R41.82
[2021-03-17 20:13] VITALS: BP 115/75; PULSE 91; RESP 16; TEMP 36.9; O2SAT 98
[2021-03-17] MEDS: trazodone 50 mg Tablet PO (20:52)
[2021-03-17] MEDS: quetiapine 100 mg Tablet PO (20:52)
--- NOTE | 2021-03-18 03:04 | PC.NURSE ---
PRN med, Trazodone 50mg PO given for sleep. Upon reassessment medication were effective.
[2021-03-18 06:00] VITALS: BP 98/61; PULSE 83; RESP 20; TEMP 36.6; O2SAT 97
[2021-03-18] MEDS: thiamine 100 mg Tablet PO (09:35)
[2021-03-18] MEDS: multivitamin therapeutic Tablet 1 TAB PO (09:35)
[2021-03-18] MEDS: folic acid 1 mg Tablet PO (09:35)
[2021-03-18] MEDS: gabapentin 100 mg Capsule 200 MG PO ×2 (09:35→14:36)
[2021-03-18 14:00] VITALS: BP 101/67; PULSE 83; RESP 18; TEMP 36.6; O2SAT 97
--- NOTE | 2021-03-18 15:53 | PM.NPN ---
Subjective NPU Subjective: Interval history: The patient says he drank a lot last night but did not sleep as well. He says he is not depressed. He is concerned about where he will stay after he leaves the hospital. We talked about the possibility that he could stay at his mother's house. He says that the house no longer belongs to his mother. It belongs to his sister, who lives there with her and children, along with the patient's mother. He denies auditory visual hallucinations. He denies suicidal homicidal ideation. He denies medication side effects. No problems with the medicines decreasing. He is thinking and memory seem to be a little better today. He remembers my name, but not where he is, etc. Mental Status Exam MSE Comments: This is a well-nourished, well-developed, and fairly well groomed white male. Cooperative with exam. Fair eye contact. No abnormal movements or tics noted. No psychomotor agitation or retardation today. Speech was spontaneous at a regular rate and rhythm. Mood described as improved; affect congruent, he is brighter. Thought process continues to be disorganized. Thought content: patient has passive but not active suicidal ideation. No homicidal ideation. No delusions reported or noted. The patient denied any auditory or visual hallucinations. Attention, concentration, and memory are somewhat impaired. He is alert and oriented to person and situation, but not time and place. Vitals/I&O/Wt Last Vital Signs Temp 97.8 F 03/18/21 14:00 Pulse 83 03/18/21 14:00 Resp 18 03/18/21 14:00 BP 101/67 03/18/21 14:00 Pulse Ox 97 03/18/21 14:00 Data NPU : 03/16/21 13:13 03/16/21 13:13 A&P Assessment and plan (1) Hepatitis C: Status: Acute (2) Confusion: Status: Acute (3) Major depressive disorder: Status: Acute (4) Alcohol use disorder: Status: Acute (5) Mild benzodiazepine use disorder: Status: Acute (6) Altered mental status: Status: Acute Additional A&P Information This is a 60-year-old, white male, with a long history of mental health issues, trauma and addiction issues, who presents with depression, active addiction, and recent reported suicide attempt off of his medication, endorsing a willingness to restart his medication. Is not completely clear what is causing his confusional episodes. We appreciate Dr. Tovar's evaluation and recommendations. (1) Confusion: We continue to decrease medications, and gabapentin will now be at 100 mg 3 times a day. (2) Hepatitis C: Unknown if this has been treated in the past. Ammonia level is not elevated (3) Alcohol use disorder: (4) Major depressive disorder: The patient reports being depressed by the confusion he is experiencing. It does not appear that his depression is causing his confusion because he is cognizant of his confusion and is disturbed by it in a way that people with severe depression are usually not. Involuntary Hold Information 96 Hour Hold: 96 Hour Involuntary Admission: No Attestations NPU Medical Necessity Statement*: Inpatient hospitalization is medically necessary and the clinically appropriate intervention, at this time. Given his level of confusion, he would not be able to live on his own. We will monitor medications and make changes as indicated. Likely length of stay is 5-7 more days. Coding Level of Care Code Acute Pressurised Container Filler for Su Sweet Diagnoses Hepatitis C B19.20 Confusion R41.0 Major depressive disorder F32.9 Alcohol use disorder Mild benzodiazepine use disorder F13.10 Altered mental status R41.82
--- NOTE | 2021-03-18 16:23 | P.PN_ITS ---
Subjective Subjective: Interval history: Ede seems to be a little bit better today after waking up. He did not do his well last night. Medications: Reviewed: Yes Vitals/I&O/Wt Last Vital Signs Temp 97.8 F 03/18/21 14:00 Pulse 83 03/18/21 14:00 Resp 18 03/18/21 14:00 BP 101/67 03/18/21 14:00 Pulse Ox 97 03/18/21 14:00 Physical Exam Narrative: EXAM NARRATIVE: General exam is a white male, conversant and calm without slurred speech. Thinks the month is January, which is an improvement. Neck is supple no lymphadenopathy or thyromegaly Cardiovascular regular rate and rhythm without murmur, no S3 or S4 Lungs clear to auscultation bilaterally. No wheezes or crackles Abdomen is soft, positive bowel sounds. No obvious organomegaly Extremities no cyanosis clubbing or edema, cap refill brisk Data : 03/16/21 13:13 03/16/21 13:13 A&P Assessment and plan (1) Confusion: Etiology is not completely clear. Both patient, and relative(mother) believe that confusion, slurred speech have started since this hospital stay. It is possible this could be medicine related if he is not used to taking the medication he has been receiving on his home medicine list. It is also possible this could be related to alcoholic encephalopathy, hepatic encephalopathy, or other etiology. There is a vague past history of neurosyphilis that has been treated as well. I ordered a B12 level this morning that was normal. I ordered an ammonia level this morning that was normal. TSH, CT head has been checked by psychiatry and within normal limits Psychiatry has maintained him on thiamine, and folate which is appropriate. At this point I believe it would be prudent to reduce his Neurontin to 300 mg 3 times daily, and consider tapering this off if improvement is made in his confusion and concerns of slurred speech. Could consider other medication reductions in Seroquel or trihexyphenidyl but will defer to psychiatry. Multiple medicines have been reduced since March 17 including Neurontin, Artane. He had shown improvement with these changes. Still awaiting records regarding past history of neurosyphilis. Reduce Neurontin further to 100 mg 3 times daily. Status: Acute (2) Hepatitis C: Unknown if this has been treated in the past. Ammonia level was ordered by me this morning and not elevated Status: Acute (3) Alcohol use disorder: Status: Acute (4) Major depressive disorder: Status: Acute Additional A&P Information History of neurosyphilis. We will try to obtain old records regarding its treatment and diagnosis to see if it was sufficient. Still awaiting records Thank you for this consultation At this point I will follow peripherally, awaiting records from [place] regarding previous diagnosis of neurosyphilis. Please call me with any questions. Attestations Medical Necessity Statement*: As per primary Coding Level of Care Code Acute Pleating Machine Operator for [facility] Fwd Diagnoses Confusion R41.0 Hepatitis C B19.20 Alcohol use disorder Major depressive disorder F32.9
[2021-03-18 20:43] VITALS: BP 94/58; PULSE 67; RESP 16; TEMP 36.6; O2SAT 98
[2021-03-18] MEDS: quetiapine 100 mg Tablet 50 MG PO (22:22)
[2021-03-19 06:00] VITALS: BP 113/76; PULSE 92; RESP 19; TEMP 36.8; O2SAT 97
[2021-03-19 08:47] LABS: Add Urine Culture? No; Bacteria Urine TRACE /hpf; Bilirubin Urine Neg (Negative); Blood Urine Neg (Negative); Glucose Urine UA Norm (Normal); Ketones Urine Negative (Negative); Leukocyte Esterase Urine Negative (Negative); Nitrate Urine Negative (Negative); Protein Urine Neg (Negative); Urine Appearance Clear (CLEAR); Urine Color Yellow (Yellow); Urobilinogen Urine 1 mg/dL (Negative); pH Urine 5 (5-7)
[2021-03-19] MEDS: thiamine 100 mg Tablet PO (09:10)
[2021-03-19] MEDS: folic acid 1 mg Tablet PO (09:10)
[2021-03-19] MEDS: gabapentin 100 mg Capsule PO ×3 (09:10→21:44)
[2021-03-19] MEDS: multivitamin therapeutic Tablet 1 TAB PO (09:10)
[2021-03-19 14:00] VITALS: BP 124/70; PULSE 95; RESP 17; TEMP 36.4; O2SAT 97
[2021-03-19] MEDS: LORazepam 2 mg Tablet PO (16:21)
--- NOTE | 2021-03-19 16:22 | PC.NURSE ---
prn medication patient states he feels very anxious, patient's hands shaking and patient is sweating. patient pacing in his room and feels like everything is closing in. Ativan 2mg po given. will continue to monitor.
--- NOTE | 2021-03-19 18:53 | PM.NPN ---
Subjective NPU Subjective: Interval history: The patient was quite upset when I went to see him. He had talked with his mother who said that he could not come and stay at their house. He said that this hurts his feelings greatly. He tells me about the dynamics in the family. He is so discouraged he talks about blowing his brains out or spending the rest of his life in custodial. Mental Status Exam MSE Comments: This is a well-nourished, well-developed, and fairly well groomed white male. Cooperative with exam. Fair eye contact. No abnormal movements or tics noted. He is agitated. Speech was rapid. Mood described as angry and sad; affect congruent, quite irritable. Thought process was more organized. Thought content: patient has some active suicidal ideation. No homicidal ideation. No delusions reported or noted. The patient denied any auditory or visual hallucinations. Attention, concentration, and memory are somewhat impaired. He is alert and oriented to person and situation, but not time and place. Vitals/I&O/Wt Last Vital Signs Temp 97.5 F L 03/19/21 14:00 Pulse 95 03/19/21 14:00 Resp 17 03/19/21 14:00 BP 124/70 03/19/21 14:00 Pulse Ox 97 03/19/21 14:00 Data NPU : 03/16/21 13:13 03/16/21 13:13 A&P Assessment and plan (1) Hepatitis C: Status: Acute (2) Confusion: Status: Acute (3) Major depressive disorder: Status: Acute (4) Alcohol use disorder: Status: Acute (5) Mild benzodiazepine use disorder: Status: Acute (6) Altered mental status: Status: Acute Additional A&P Information This is a 60-year-old, white male, with a long history of mental health issues, trauma and addiction issues, who presents with depression, active addiction, and recent reported suicide attempt off of his medication, endorsing a willingness to restart his medication. Is not completely clear what is causing his confusional episodes. We appreciate Dr. Tovar's evaluation and recommendations. (1) Confusion: We continue to decrease medications, and gabapentin will now be at 100 mg 3 times a day. It is possible that the patient's mood is less stable on the decreased dose of gabapentin. Alternatively it may just be his reaction to receiving what for him is devastating news. (2) Hepatitis C: Unknown if this has been treated in the past. Ammonia level is not elevated (3) Alcohol use disorder: (4) Major depressive disorder: The patient reports being depressed by the confusion he is experiencing. It does not appear that his depression is causing his confusion because he is cognizant of his confusion and is disturbed by it in a way that people with severe depression are usually not. Involuntary Hold Information 96 Hour Hold: 96 Hour Involuntary Admission: No Attestations NPU Medical Necessity Statement*: Inpatient hospitalization is medically necessary and the clinically appropriate intervention, at this time. Given his level of confusion, he would not be able to live on his own. We will monitor medications and make changes as indicated. Likely length of stay is 5-7 more days. Coding Level of Care Code Acute Slicing Machine Feeder for [facility] Fwd Diagnoses Hepatitis C B19.20 Confusion R41.0 Major depressive disorder F32.9 Alcohol use disorder Mild benzodiazepine use disorder F13.10 Altered mental status R41.82
[2021-03-19 20:53] VITALS: BP 126/82; PULSE 90; RESP 16; TEMP 36.6; O2SAT 95
[2021-03-19] MEDS: quetiapine 100 mg Tablet 50 MG PO (21:46)
[2021-03-20 06:00] VITALS: BP 111/59; PULSE 68; RESP 16; TEMP 36.8; O2SAT 98
[2021-03-20] MEDS: gabapentin 100 mg Capsule PO ×2 (09:40→15:35)
[2021-03-20] MEDS: folic acid 1 mg Tablet PO (09:40)
[2021-03-20] MEDS: thiamine 100 mg Tablet PO (09:40)
[2021-03-20] MEDS: multivitamin therapeutic Tablet 1 TAB PO (09:41)
--- NOTE | 2021-03-20 13:24 | PM.NPN ---
Subjective NPU Subjective: Interval history: Still quite upset about not being able to go live at his mother's house. He says, everything is falling through. He slept well last night. We talked about his medication, that we will discontinue the gabapentin and Artane. We will change the Seroquel to an as needed medication. He notices no difference as we have decreased his medication. He said he used to have trouble sleeping and took trazodone. No suicidal ideation today. Mental Status Exam MSE Comments: This is a well-nourished, well-developed, and fairly well groomed white male. Cooperative with exam. Fair eye contact. No abnormal movements or tics noted. He is agitated, but less than yesterday. Speech was of more normal pace. Mood described as sad and depressed; affect congruent, sad. Thought process was more organized. Thought content: patient has passive but not active suicidal ideation. No homicidal ideation. No delusions reported or noted. The patient denied any auditory or visual hallucinations. Attention, concentration, and memory are somewhat impaired. He is alert and oriented to person and situation. He does know that today is Sunday and that the year is 2020. He thinks it is January. He said that the name of the hospital is [facility] something. He knows that the name of the [facility] with the letter [facility]. Vitals/I&O/Wt Last Vital Signs Temp 98.3 F 03/20/21 06:00 Pulse 68 03/20/21 06:00 Resp 16 03/20/21 06:00 BP 111/59 03/20/21 06:00 Pulse Ox 98 03/20/21 06:00 Weight last 48 hrs Weight 71.668 kg Data NPU : 03/16/21 13:13 03/16/21 13:13 A&P Assessment and plan (1) Altered mental status: Status: Acute (2) Confusion: Status: Acute (3) Major depressive disorder: Status: Acute (4) Hepatitis C: Status: Acute (5) Alcohol use disorder: Status: Acute (6) Mild benzodiazepine use disorder: Status: Acute Additional A&P Information This is a 60-year-old, white male, with a long history of mental health issues, trauma and addiction issues, who presents with depression, active addiction, and recent reported suicide attempt off of his medication, endorsing a willingness to restart his medication. Is not completely clear what is causing his confusional episodes. We appreciate Dr. Tovar's evaluation and recommendations. (1) Confusion: We continue to decrease medications, and gabapentin will now be at 100 mg 3 times a day. It is possible that the patient's mood is less stable on the decreased dose of gabapentin. Alternatively it may just be his reaction to receiving what for him is devastating news. (2) Hepatitis C: Unknown if this has been treated in the past. Ammonia level is not elevated (3) Alcohol use disorder: (4) Major depressive disorder: The patient reports being depressed by the confusion he is experiencing. It does not appear that his depression is causing his confusion because he is cognizant of his confusion and is disturbed by it in a way that people with severe depression are usually not. Involuntary Hold Information 96 Hour Hold: 96 Hour Involuntary Admission: No Attestations NPU Medical Necessity Statement*: Inpatient hospitalization is medically necessary and the clinically appropriate intervention, at this time. Given his level of confusion, he would not be able to live on his own. We will monitor medications and make changes as indicated. Likely length of stay is 5-7 more days. Coding Level of Care Code Acute High Lift Operator for Su Sweet Diagnoses Altered mental status R41.82 Confusion R41.0 Major depressive disorder F32.9 Hepatitis C B19.20 Alcohol use disorder Mild benzodiazepine use disorder F13.10
[2021-03-20 14:00] VITALS: BP 121/81; PULSE 60; RESP 16; TEMP 36.2; O2SAT 97
[2021-03-20 21:26] VITALS: BP 126/78; PULSE 19; RESP 18; TEMP 36.6; O2SAT 98
[2021-03-21 06:00] VITALS: BP 127/80; PULSE 69; RESP 21; TEMP 36.6; O2SAT 96
[2021-03-21] MEDS: fluoxetine 20 mg Capsule PO (08:32)
[2021-03-21] MEDS: multivitamin therapeutic Tablet 1 TAB PO (08:32)
[2021-03-21] MEDS: thiamine 100 mg Tablet PO (08:32)
[2021-03-21] MEDS: folic acid 1 mg Tablet PO (08:32)
[2021-03-21 14:00] VITALS: BP 115/74; PULSE 56; RESP 20; TEMP 36.7; O2SAT 98
--- NOTE | 2021-03-21 15:21 | P.PN_ITS ---
Subjective NPU Subjective: Interval history: The patient was agitated when I entered the room. He asked if he was still at the same hospital. He had had the feeling that the hospital had moved to a different place. He did not eat any food because he was not sure if that would be okay. He did remember my name and calm down when he saw me. He thinks that he has dreams still that he confuses with reality. He says that it is quite upsetting to not know where he is. He does not think he is worse since we have discontinued gabapentin, Seroquel, and Artane. I discussed the case with Dr. Tovar. He has nothing to add today. He has not heard from the [facility] about the patient's neurosyphilis treatment. Mental Status Exam MSE Comments: This is a well-nourished, well-developed, and fairly well groomed white male. Cooperative with exam. Fair eye contact. No abnormal movements or tics noted. He is quite agitated today. Speech was of again rapid. Mood described as sad and depressed; affect congruent, sad and anxious. Thought process was more organized. Thought content: patient has passive but not active suicidal ideation. No homicidal ideation. No delusions reported or noted. The patient denied any auditory or visual hallucinations. Attention, concentration, and memory are somewhat impaired. He is alert and oriented to person and situation. He again knows that the name of the town starts with the letter W. Vitals/I&O/Wt Last Vital Signs Temp 98.0 F 03/21/21 14:00 Pulse 56 L 03/21/21 14:00 Resp 20 H 03/21/21 14:00 BP 115/74 03/21/21 14:00 Pulse Ox 98 03/21/21 14:00 Weight last 48 hrs Weight 71.668 kg Data NPU : 03/16/21 13:13 03/16/21 13:13 A&P Assessment and plan (1) Altered mental status: Status: Acute (2) Confusion: Status: Acute (3) Major depressive disorder: Status: Acute (4) Hepatitis C: Status: Acute (5) Alcohol use disorder: Status: Acute (6) Mild benzodiazepine use disorder: Status: Acute Additional A&P Information This is a 60-year-old, white male, with a long history of mental health issues, trauma and addiction issues, who presents with depression, active addiction, and recent reported suicide attempt off of his medication, endorsing a willingness to restart his medication. Is not completely clear what is causing his confusional episodes. We appreciate Dr. Tovar's evaluation and recommendations. We will also request a neurology consultation. (1) Confusion: We continue to decrease medications, and gabapentin will now be at 100 mg 3 times a day. It is possible that the patient's mood is less stable on the decreased dose of gabapentin. Alternatively it may just be his reaction to receiving what for him is devastating news. (2) Hepatitis C: Unknown if this has been treated in the past. Ammonia level is not elevated (3) Alcohol use disorder: (4) Major depressive disorder: The patient reports being depressed by the confusion he is experiencing. It does not appear that his depression is causing his confusion because he is cognizant of his confusion and is disturbed by it in a way that people with severe depression are usually not. Involuntary Hold Information 96 Hour Hold: 96 Hour Involuntary Admission: No Attestations NPU Medical Necessity Statement*: Inpatient hospitalization is medically necessary and the clinically appropriate intervention, at this time. Given his level of confusion, he would not be able to live on his own. We will monitor medications and make changes as indicated. Likely length of stay is 5-7 more days. Coding Level of Care Code Acute Consultant Education for Su Sweet Diagnoses Altered mental status R41.82 Confusion R41.0 Major depressive disorder F32.9 Hepatitis C B19.20 Alcohol use disorder Mild benzodiazepine use disorder F13.10
[2021-03-21 22:00] VITALS: BP 132/80; PULSE 61; RESP 15; TEMP 36.8; O2SAT 97
[2021-03-22 06:00] VITALS: BP 138/90; PULSE 68; RESP 15; TEMP 36.6; O2SAT 97
--- NOTE | 2021-03-22 08:31 | P.PN_ITS ---
Subjective Subjective: Interval history: Patient reports he feels much less confused. However, he complains of severe depression. Medications: Reviewed: Yes Vitals/I&O/Wt Last Vital Signs Temp 97.8 F 03/22/21 06:00 Pulse 68 03/22/21 06:00 Resp 15 03/22/21 06:00 BP 138/90 03/22/21 06:00 Pulse Ox 97 03/22/21 06:00 Physical Exam Narrative: EXAM NARRATIVE: No distress, conversant. Alert and oriented to self, place in regards to year although believes it might be February. Data : 03/16/21 13:13 03/16/21 13:13 A&P Assessment and plan (1) Confusion: Etiology is not completely clear. Both patient, and relative(mother) believe that confusion, slurred speech have started since this hospital stay. It is possible this could be medicine related if he is not used to taking the medication he has been receiving on his home medicine list. It is also possible this could be related to alcoholic encephalopathy, hepatic encephalopathy, or other etiology. There is a vague past history of neurosyphilis that has been treated as well. I ordered a B12 level that was normal. I ordered an ammonia level that was normal. TSH, CT head has been checked by psychiatry and within normal limits Psychiatry has maintained him on thiamine, and folate which is appropriate. Neurontin has been discontinued, and patient has shown improvement. Other medications were reduced by psychiatry. Still awaiting records regarding past history of neurosyphilis. I discussed this directly with the nurse to try to receive records today. Status: Acute (2) Hepatitis C: Unknown if this has been treated in the past. Ammonia level not elevated Status: Acute (3) Alcohol use disorder: Status: Acute (4) Major depressive disorder: Status: Acute Additional A&P Information History of neurosyphilis. We will try to obtain old records regarding its treatment and diagnosis to see if it was sufficient. Still awaiting records No new recommendations other than review of records regarding neurosyphilis Attestations Medical Necessity Statement*: As per primary Coding Level of Care Code Acute Coin Machine Servicer Repairer for [facility] Fwd Diagnoses Confusion R41.0 Hepatitis C B19.20 Alcohol use disorder Major depressive disorder F32.9
[2021-03-22] MEDS: multivitamin therapeutic Tablet 1 TAB PO (08:35)
[2021-03-22] MEDS: thiamine 100 mg Tablet PO (08:35)
[2021-03-22] MEDS: folic acid 1 mg Tablet PO (08:35)
[2021-03-22] MEDS: fluoxetine 20 mg Capsule PO (08:35)
[2021-03-22 14:00] VITALS: BP 120/75; PULSE 65; RESP 16; TEMP 36.4; O2SAT 96
--- NOTE | 2021-03-22 15:10 | PM.NPN ---
Subjective NPU Subjective: Interval history: I discussed the patient's situation with the neurologist, Dr. Batsheva Alberto, this morning. Since the patient is nearing discharge, she said the best thing would be to order an outpatient EEG then a follow-up outpatient consultation with her. She will alert her office to be on the look out for the referral, so she can work him in. I discussed the patient's progress with the team. They are looking for an appropriate placement, perhaps an RCF here in [place]. The patient was quite tearful when I met with him. He is distraught about his level of confusion. He talked with his mother about it. He is concerned that he is developing early onset Alzheimer's. Because of his family history, he has been worried about this, and now fears his worries are coming through. He says that he thinks about killing himself often throughout the day. He feels hopeless because he has no idea how he would take care of himself. I expressed our intention to find him a place that will provide the care he needs. He does calm down some with that reassurance. I talked with him about the possibility that his mood is less stable now that other medications have been decreased. On the other hand, he may be experiencing emotional and appropriate to the situation, that he has cognitive deficits that prevented him from caring for himself, and he has no one else to care for him at this time. Vitals/I&O/Wt Last Vital Signs Temp 98.1 F 03/22/21 22:00 Pulse 62 03/22/21 22:00 Resp 17 03/22/21 22:00 BP 131/85 03/22/21 22:00 Pulse Ox 95 03/22/21 22:00 Data NPU : 03/16/21 13:13 03/16/21 13:13 A&P Assessment and plan (1) Major depressive disorder: Status: Acute (2) Altered mental status: Status: Acute (3) Confusion: Status: Acute (4) Mild benzodiazepine use disorder: Status: Acute (5) Alcohol use disorder: Status: Acute (6) Hepatitis C: Status: Acute Additional A&P Information 1) Confusion: Etiology is not completely clear. Both patient, and relative(mother) believe that confusion, slurred speech have started since this hospital stay. It is possible this could be medicine related if he is not used to taking the medication he has been receiving on his home medicine list. It is also possible this could be related to alcoholic encephalopathy, hepatic encephalopathy, or other etiology. There is a vague past history of neurosyphilis that has been treated This is a 60-year-old, white male, with a long history of mental health issues, trauma and addiction issues, who presents with depression, active addiction, and recent reported suicide attempt off of his medication, endorsing a willingness to restart his medication. Is not completely clear what is causing his confusional episodes. We appreciate Dr. Tovar's evaluation and recommendations. He will have an outpatient neurology consultation with Dr. Alberto, after discharge. (1) Confusion: We have decreased his medication. He is no longer on gabapentin, Artane, or Seroquel. Prozac was reduced from 40 mg to 20 mg daily. It is possible that the patient's mood is less stable on the decreased dose of gabapentin. Alternatively it may just be his reaction to receiving what for him is devastating news. (2) Hepatitis C: Unknown if this has been treated in the past. Ammonia level is not elevated It is possible that his altered mental status could be related to alcoholic encephalopathy, hepatic encephalopathy, or other etiology. (3) Alcohol use disorder: (4) Major depressive disorder: The patient reports being depressed by the confusion he is experiencing. It does not appear that his depression is causing his confusion because he is cognizant of his confusion and is disturbed by it in a way that people with severe depression are usually not. (5) History of neurosyphilis. We will try to obtain old records regarding its treatment and diagnosis to see if it was sufficient. Still awaiting records. Involuntary Hold Information 96 Hour Hold: 96 Hour Involuntary Admission: No Attestations NPU Medical Necessity Statement*: Inpatient hospitalization is medically necessary and the clinically appropriate intervention, at this time. Given his level of confusion, he would not be able to live on his own. We will monitor medications and make changes as indicated. Likely length of stay is 4-6 more days. Coding Level of Care Code Acute Flight Engineer Inspector for [facility] Diagnoses Major depressive disorder F32.9 Altered mental status R41.82 Confusion R41.0 Mild benzodiazepine use disorder F13.10 Alcohol use disorder Hepatitis C B19.20
[2021-03-22 22:00] VITALS: BP 131/85; PULSE 62; RESP 17; TEMP 36.7; O2SAT 95
[2021-03-23 06:00] VITALS: BP 118/71; PULSE 98; RESP 15; TEMP 37.1; O2SAT 96
[2021-03-23] MEDS: thiamine 100 mg Tablet PO (08:48)
[2021-03-23] MEDS: fluoxetine 20 mg Capsule PO (08:48)
[2021-03-23] MEDS: multivitamin therapeutic Tablet 1 TAB PO (08:48)
[2021-03-23] MEDS: folic acid 1 mg Tablet PO (08:48)
--- NOTE | 2021-03-23 11:09 | PM.NPN ---
Subjective NPU Subjective: Interval history: I reviewed the plan with the patient for him to follow up with Dr. Alberto as an outpatient. He continues to be upset about losing his memory -- concerned that he is developing early onset Alzheimer's. Because of his family history, he has been worried about this, and now fears his worries are coming through. He says that he thinks about killing himself often throughout the day. He feels hopeless because he has no idea how he would take care of himself. He says if there is a place where he can live that takes care of his needs, he won't feel so depressed. Mental Status Exam MSE Comments: This is a well-nourished, well-developed, and fairly well groomed white male. Cooperative with exam. Fair eye contact. No abnormal movements or tics noted. Speech was more of a regular rate and rhythm. Mood described as sad and depressed; affect congruent, sad and anxious. Thought process was more organized. Thought content: patient has passive but not active suicidal ideation. No homicidal ideation. No delusions reported or noted. The patient denied any auditory or visual hallucinations. Attention, concentration, and memory are somewhat impaired. He is alert and oriented to person and situation. He again knows that the name of the town starts with the letter W. Vitals/I&O/Wt Last Vital Signs Temp 97.2 F L 03/23/21 14:00 Pulse 65 03/23/21 14:00 Resp 17 03/24/21 06:00 BP 108/69 03/23/21 14:00 Pulse Ox 98 03/23/21 14:00 Data NPU : 03/16/21 13:13 03/16/21 13:13 A&P Additional A&P Information This is a 60-year-old, white male, with a long history of mental health issues, trauma and addiction issues, who presents with depression, active addiction, and recent reported suicide attempt off of his medication, endorsing a willingness to restart his medication. It is not completely clear what is causing his confusional episodes. We appreciate Dr. Tovar's evaluation and recommendations. He will have an outpatient neurology consultation with Dr. Alberto, after discharge. (1) Confusion: We have decreased his medication. He is no longer on gabapentin, Artane, or Seroquel. Prozac was reduced from 40 mg to 20 mg daily. It is possible that the patient's mood is less stable on the decreased dose of gabapentin. Alternatively it may just be his reaction to receiving what for him is devastating news. I discussed the patient's situation with the neurologist, Dr. Batsheva Alberto. Since the patient is nearing discharge, she said the best thing would be to order an outpatient EEG then a follow-up outpatient consultation with her. She will alert her office to be on the look out for the referral, so she can work him in. (2) History of neurosyphilis. We will try to obtain old records regarding its treatment and diagnosis to see if it was sufficient. Still awaiting records. (3) Hepatitis C: Unknown if this has been treated in the past. Ammonia level is not elevated It is possible that his altered mental status could be related to alcoholic encephalopathy, hepatic encephalopathy, or other etiology. (4) Alcohol use disorder: (5) Major depressive disorder: (6) The patient reports being depressed by the confusion he is experiencing. It does not appear that his depression is causing his confusion because he is cognizant of his confusion and is disturbed by it in a way that people with severe depression are usually not. (7) Disposition: looking for an appropriate placement, perhaps an RCF here in [place]. Involuntary Hold Information 96 Hour Hold: 96 Hour Involuntary Admission: No Attestations NPU Medical Necessity Statement*: Inpatient hospitalization is medically necessary and the clinically appropriate intervention, at this time. Given his level of confusion, he would not be able to live on his own. We will monitor medications and make changes as indicated. Likely length of stay is 3-5 more days. Coding Level of Care Code Acute Fulfillment Representative for Su Sweet
[2021-03-23 14:00] VITALS: BP 108/69; PULSE 65; RESP 18; TEMP 36.2; O2SAT 98
[2021-03-23 20:24] VITALS: RESP 18
[2021-03-24 06:00] VITALS: RESP 17
[2021-03-24] MEDS: thiamine 100 mg Tablet PO (08:11)
[2021-03-24] MEDS: fluoxetine 20 mg Capsule PO (08:11)
[2021-03-24] MEDS: folic acid 1 mg Tablet PO (08:11)
[2021-03-24] MEDS: OLANZapine 5 mg ODT PO ×2 (08:11→20:51)
[2021-03-24] MEDS: multivitamin therapeutic Tablet 1 TAB PO (08:11)
--- NOTE | 2021-03-24 12:59 | PM.EVENT ---
Event Note Event Note: Received records regarding patient's diagnosis of neurosyphilis treated in [place] in September by Dr. Lloyd. [facility]. We will ask for those records. Repeat RPR, with titer. Patient appears clinically stable.
[2021-03-24 14:00] VITALS: BP 124/72; PULSE 69; RESP 16; TEMP 36.6; O2SAT 93
[2021-03-24 15:23] LABS: Rapid Plasma Reagin Syphilis Reactive (Nonreactive)
--- NOTE | 2021-03-24 20:26 | P.PN_ITS ---
Subjective NPU Subjective: Interval history: Patient presents today reporting that he is feeling okay. He understands what Dr. Tovar is doing and we are awaiting his files to figure out if there is any evidence that available to give us some insight into what has driven this level of confusion that is lasted for this period of time. We have gotten a discharge plan together and he is hearing what I am saying, but it is not clear that he really taking it in. Mental Status Exam MSE Comments: This is a well-nourished, well-developed, and fairly well groomed white male. Cooperative with exam. Fair eye contact. No abnormal movements or tics noted. Speech was more of a regular rate and rhythm. Mood described as okay; affect congruent. Thought process was more organized. Thought content: patient has passive but not active suicidal ideation. No homicidal ideation. No delusions reported or noted. The patient denied any auditory or visual hallucinations. Attention, concentration, and memory are somewhat impaired. He is alert and oriented to person and situation. Insight and judgment are limited, impulse control is limited. Vitals/I&O/Wt Last Vital Signs Temp 97.8 F 03/24/21 14:00 Pulse 69 03/24/21 14:00 Resp 18 03/24/21 20:27 BP 124/72 03/24/21 14:00 Pulse Ox 93 03/24/21 14:00 Data NPU : 03/16/21 13:13 03/16/21 13:13 A&P Additional A&P Information (1) Major depressive disorder: (2) Altered mental status: (3) Confusion: (4) Mild benzodiazepine use disorder: (5) Alcohol use disorder: (6) Hepatitis C: 1) Confusion: Etiology is not completely clear. Both patient, and relative(mother) believe that confusion, slurred speech have started since this hospital stay. It is possible this could be medicine related if he is not used to taking the medication he has been receiving on his home medicine list. It is also possible this could be related to alcoholic encephalopathy, hepatic encephalopathy, or other etiology. There is a vague past history of neurosyphilis that has been treated This is a 60-year-old, white male, with a long history of mental health issues, trauma and addiction issues, who presents with depression, active addiction, and recent reported suicide attempt off of his medication, endorsing a willingness to restart his medication. Is not completely clear what is causing his confusional episodes. We appreciate Dr. Tovar's evaluation and recommendations. He will have an outpatient neurology consultation with Dr. Alberto, after discharge. (1) Confusion: We have decreased his medication. He is no longer on gabapentin, Artane, or Seroquel. Prozac was reduced from 40 mg to 20 mg daily. It is possible that the patient's mood is less stable on the decreased dose of gabapentin. Alternatively it may just be his reaction to receiving what for him is edgardo stating news. (2) Hepatitis C: Unknown if this has been treated in the past. Ammonia level is not elevated It is possible that his altered mental status could be related to alcoholic encephalopathy, hepatic encephalopathy, or other etiology. (3) Alcohol use disorder: (4) Major depressive disorder: The patient reports being depressed by the confusion he is experiencing. It does not appear that his depression is causing his confusion because he is cognizant of his confusion and is disturbed by it in a way that people with severe depression are usually not. (5) History of neurosyphilis. We will try to obtain old records regarding its treatment and diagnosis to see if it was sufficient. Still awaiting records. Involuntary Hold Information 96 Hour Hold: 96 Hour Involuntary Admission: No Attestations NPU Medical Necessity Statement*: Inpatient hospitalization is medically necessary and the clinically appropriate intervention, at this time. Given his level of confusion, he would not be able to live on his own. We will monitor medications and make changes as indicated. Likely length of stay is 2-4 more days. Coding Level of Care Code Acute Meter Supervisor for Su Sweet
[2021-03-24 20:27] VITALS: RESP 18
[2021-03-24] MEDS: trazodone 50 mg Tablet PO (20:51)
[2021-03-24] MEDS: quetiapine 100 mg Tablet 50 MG PO (20:51)
--- NOTE | 2021-03-25 00:31 | PC.NURSE ---
PRN MEDIATIONS: PATIENT WAS GIVEN SEROQUEL 50MG PO, ZYPREXA 5MG PO AND DESYREL 50MG PO. UPON REASSESSMENT MEDICATION WAS EFFECTIVE.
[2021-03-25 06:00] VITALS: RESP 15
--- NOTE | 2021-03-25 09:09 | P.PN_ITS ---
Subjective Subjective: Interval history: Ede reports he is doing okay. Less confused. Nursing staff reports he is doing okay as well. Medications: Reviewed: Yes Vitals/I&O/Wt Last Vital Signs Temp 97.8 F 03/24/21 14:00 Pulse 69 03/24/21 14:00 Resp 15 03/25/21 06:00 BP 124/72 03/24/21 14:00 Pulse Ox 93 03/24/21 14:00 Physical Exam Narrative: EXAM NARRATIVE: General exam is no apparent distress, alert and oriented Data : 03/16/21 13:13 03/16/21 13:13 A&P Assessment and plan (1) Confusion: Etiology is not completely clear. Both patient, and relative(mother) believe that confusion, slurred speech have started since this hospital stay. It is possible this could be medicine related if he is not used to taking the medication he has been receiving on his home medicine list. It is also possible this could be related to alcoholic encephalopathy, hepatic encephalopathy, or other etiology. There is a vague past history of neurosyphilis that has been treated as well. I ordered a B12 level that was normal. I ordered an ammonia level that was normal. TSH, CT head has been checked by psychiatry and within normal limits Psychiatry has maintained him on thiamine, and folate which is appropriate. Neurontin has been discontinued, and patient has shown improvement. Other medications were reduced by psychiatry. We had received some records regarding past history of neurosyphilis. Approximately 6 months ago treatment was initiated at [place] at [facility] by infectious disease. He was then transferred to [facility] to we are awaiting records from. If he received 14 days of IV antibiotics his incidence of recurrent neurosyphilis is extremely low. An RPR, with titer was ordered yesterday and pending. A fourfold decrease should be seen. If not, could consider lumbar puncture. However, I do not believe it is indicated currently as patient is clinically improved. Status: Acute (2) Hepatitis C: Unknown if this has been treated in the past. Ammonia level not elevated Status: Acute (3) Alcohol use disorder: Status: Acute (4) Major depressive disorder: Status: Acute Additional A&P Information History of neurosyphilis. Awaiting records from [facility] currently. Attestations Medical Necessity Statement*: As per primary Coding Level of Care Code Acute Dynamite Reclaimer for [facility] Micki Diagnoses Confusion R41.0 Hepatitis C B19.20 Alcohol use disorder Major depressive disorder F32.9
[2021-03-25] MEDS: multivitamin therapeutic Tablet 1 TAB PO (09:56)
[2021-03-25] MEDS: fluoxetine 20 mg Capsule PO (09:56)
[2021-03-25] MEDS: folic acid 1 mg Tablet PO (09:56)
[2021-03-25] MEDS: thiamine 100 mg Tablet PO (09:56)
[2021-03-25 14:00] VITALS: BP 113/72; PULSE 73; RESP 18; TEMP 36.7; O2SAT 96
--- NOTE | 2021-03-25 14:31 | P.PN_ITS ---
Subjective NPU Subjective: Interval history: Patient presents today with confusion that continues. He now seems to just talk about feeling depressed but his depression looks a lot more like confusion. He continues to endorse being comfortable with the plan of exploring his records and trying to figure out if there?s some other thing at play other than the impact of his drinking in some way or another. Mental Status Exam MSE Comments: This is a well-nourished, well-developed, and fairly well groome d white male. Cooperative with exam. Fair eye contact. No abnormal movements or tics noted. Speech was more of a regular rate and rhythm. Mood described as okay; affect congruent, but still confused. Thought process was more organized, but still impaired. Thought content: patient has passive but not active suicidal ideation. No homicidal ideation. No delusions reported or noted. The patient denied any auditory or visual hallucinations. Attention, concentration, and memory are somewhat impaired. He is alert and oriented to person and situation. Insight and judgment are limited, impulse control is limited. Vitals/I&O/Wt Last Vital Signs Temp 97.8 F 03/24/21 14:00 Pulse 69 03/24/21 14:00 Resp 15 03/25/21 06:00 BP 124/72 03/24/21 14:00 Pulse Ox 93 03/24/21 14:00 Data NPU : 03/16/21 13:13 03/16/21 13:13 A&P Additional A&P Information 1) Major depressive disorder: (2) Altered mental status: (3) Confusion: (4) Mild benzodiazepine use disorder: (5) Alcohol use disorder: (6) Hepatitis C: 1) Confusion: Etiology is not completely clear. Both patient, and relative(mother) believe that confusion, slurred speech have started since this hospital stay. It is possible this could be medicine related if he is not used to taking the medication he has been receiving on his home medicine list. It is also possible this could be related to alcoholic encephalopathy, hepatic encephalopathy, or other etiology. There is a vague past history of neurosyphilis that has been treated This is a 60-year-old, white male, with a long history of mental health issues, trauma and addiction issues, who presents with depression, active addiction, and recent reported suicide attempt off of his medication, endorsing a willingness to restart his medication. Is not completely clear what is causing his confusional episodes. We appreciate Dr. Tovar's evaluation and recommendations. He will have an outpatient neurology consultation with Dr. Alberto, after discharge. (1) Confusion: We have decreased his medication. He is no longer on gabapentin, Artane, or Seroquel. Prozac was reduced from 40 mg to 20 mg daily. It is possible that the patient's mood is less stable on the decreased dose of gabapentin. Alternatively it may just be his reaction to receiving what for him is devastating news. (2) Hepatitis C: Unknown if this has been treated in the past. Ammonia level is not elevated It is possible that his altered mental status could be related to alcoholic encephalopathy, hepatic encephalopathy, or other etiology. (3) Alcohol use disorder: (4) Major depressive disorder: The patient reports being depressed by the confusion he is experiencing. It does not appear that his depression is causing his confusion because he is cognizant of his confusion and is disturbed by it in a way that people with severe depression are usually not. (5) History of neurosyphilis. We will try to obtain old records regarding its treatment and diagnosis to see if it was sufficient. Still awaiting records. Involuntary Hold Information 96 Hour Hold: 96 Hour Involuntary Admission: No Attestations NPU Medical Necessity Statement*: Inpatient hospitalization is medically necessary and the clinically appropriate intervention, at this time. Given his level of confusion, he would not be able to live on his own. We will monitor medications and make changes as indicated. Likely length of stay is 2-4 more days. Coding Level of Care Code Acute Acid Pump Operator for Su Sweet
[2021-03-25 22:00] VITALS: BP 98/64; PULSE 61; RESP 17; TEMP 36.8; O2SAT 97
[2021-03-26 06:00] VITALS: BP 96/63; PULSE 86; RESP 16; TEMP 36.6; O2SAT 99
--- NOTE | 2021-03-26 09:51 | PM.NPN ---
Subjective NPU Subjective: Interval history: Patient presents today with no real changes from yesterday. He continues to seem somewhat despondent good morning confuse way than a depressed way which is what he is endorsing. We discussed reviewing his medication?s and possibly considering an anti-depressant that has a atypical process/non-SSRI. Mental Status Exam MSE Comments: This is a well-nourished, well-developed, and fairly well groomed white male. Cooperative with exam. In continued mild distress. Fair eye contact. No abnormal movements or tics noted. Speech was more of a regular rate and rhythm, but some decreased volume. Mood described as depressed; affect congruent, but still confused. Thought process was more organized, but still impaired. Thought content: patient has passive but not active suicidal ideation. No homicidal ideation. No delusions reported or noted. The patient denied any auditory or visual hallucinations. Attention, concentration, and memory are somewhat impaired. He is alert and oriented to person and situation. Insight and judgment are limited, impulse control is limited. Vitals/I&O/Wt Last Vital Signs Temp 97.9 F 03/26/21 06:00 Pulse 86 03/26/21 06:00 Resp 16 03/26/21 06:00 BP 96/63 03/26/21 06:00 Pulse Ox 99 03/26/21 06:00 Data NPU : 03/16/21 13:13 03/16/21 13:13 A&P Additional A&P Information 1) Major depressive disorder: (2) Altered mental status: (3) Confusion: (4) Mild benzodiazepine use disorder: (5) Alcohol use disorder: (6) Hepatitis C: 1) Confusion: Etiology is not completely clear. Both patient, and relative(mother) believe that confusion, slurred speech have started since this hospital stay. It is possible this could be medicine related if he is not used to taking the medication he has been receiving on his home medicine list. It is also possible this could be related to alcoholic encephalopathy, hepatic encephalopathy, or other etiology. There is a vague past history of neurosyphilis that has been treated This is a 60-year-old, white male, with a long history of mental health issues, trauma and addiction issues, who presents with depression, active addiction, and recent reported suicide attempt off of his medication, endorsing a willingness to restart his medication. Is not completely clear what is causing his confusional episodes. We appreciate Dr. Tovar's evaluation and recommendations. He will have an outpatient neurology consultation with Dr. Alberto, after discharge. (1) Confusion: We have decreased his medication. He is no longer on gabapentin, Artane, or Seroquel. Prozac was reduced from 40 mg to 20 mg daily. Will possibly consider Wellbutrin in the morning. It is possible that the patient's mood is less stable on the decreased dose of gabapentin. Alternatively it may just be his reaction to receiving what for him is devastating news. (2) Hepatitis C: Unknown if this has been treated in the past. Ammonia level is not elevated It is possible that his altered mental status could be related to alcoholic encephalopathy, hepatic encephalopathy, or other etiology. (3) Alcohol use disorder: (4) Major depressive disorder: The patient reports being depressed by the confusion he is experiencing. It does not appear that his depression is causing his confusion because he is cognizant of his confusion and is disturbed by it in a way that people with severe depression are usually not. (5) History of neurosyphilis. We will try to obtain old records regarding its treatment and diagnosis to see if it was sufficient. Still awaiting records. Involuntary Hold Information 96 Hour Hold: 96 Hour Involuntary Admission: No Attestations NPU Medical Necessity Statement*: Inpatient hospitalization is medically necessary and the clinically appropriate intervention, at this time. Given his level of confusion, he would not be able to live on his own. We will monitor medications and make changes as indicated. Likely length of stay is 2-4 more days. Coding Level of Care Code Acute Finishing Area Supervisor for Su Sweet
[2021-03-26] MEDS: thiamine 100 mg Tablet PO (10:31)
[2021-03-26] MEDS: fluoxetine 20 mg Capsule PO (10:31)
[2021-03-26] MEDS: folic acid 1 mg Tablet PO (10:31)
[2021-03-26] MEDS: multivitamin therapeutic Tablet 1 TAB PO (10:31)
[2021-03-26 14:00] VITALS: BP 96/60; PULSE 56; RESP 18; TEMP 36.7; O2SAT 97
[2021-03-26 20:57] VITALS: BP 105/65; PULSE 50; RESP 17; TEMP 36.7; O2SAT 98
[2021-03-27 06:00] VITALS: BP 111/66; PULSE 57; RESP 16; TEMP 36.6; O2SAT 98
[2021-03-27] MEDS: multivitamin therapeutic Tablet 1 TAB PO (09:59)
[2021-03-27] MEDS: fluoxetine 20 mg Capsule PO (09:59)
[2021-03-27] MEDS: folic acid 1 mg Tablet PO (10:03)
[2021-03-27] MEDS: thiamine 100 mg Tablet PO (10:04)
--- NOTE | 2021-03-27 10:36 | P.PN_ITS ---
Subjective NPU Subjective: Interval history: Ramiro is in today continuing to really struggle with functionality. He continues to be somewhat confused and report just not being sure about things. We agreed we talked to the hospitalist on Sunday to see their take on the record we got in relation to the repeat RPR titers. Mental Status Exam MSE Comments: This is a well-nourished, well-developed, and fairly well groomed white male. Cooperative with exam. In continued mild distress. Fair eye contact. No abnormal movements or tics noted. Speech was more of a regular rate and rhythm, but some decreased volume. Mood described as depressed; affect congruent, but still confused. Thought process was more organized, but still impaired. Thought content: patient has passive but not active suicidal ideation. No homicidal ideation. No delusions reported or noted. The patient denied any auditory or visual hallucinations. Attention, concentration, and memory are somewhat impaired. He is alert and oriented to person and situation. Insight and judgment are limited, impulse control is limited. Vitals/I&O/Wt Last Vital Signs Temp 97.8 F 03/27/21 06:00 Pulse 57 L 03/27/21 06:00 Resp 16 03/27/21 06:00 BP 111/66 03/27/21 06:00 Pulse Ox 98 03/27/21 06:00 Weight last 48 hrs Weight 71.668 kg Data NPU : 03/16/21 13:13 03/16/21 13:13 A&P Additional A&P Information 1) Major depressive disorder: (2) Altered mental status: (3) Confusion: (4) Mild benzodiazepine use disorder: (5) Alcohol use disorder: (6) Hepatitis C: 1) Confusion: Etiology is not completely clear. Both patient, and relative(mother) believe that confusion, slurred speech have started since this hospital stay. It is possible this could be medicine related if he is not used to taking the medication he has been receiving on his home medicine list. It is also possible this could be related to alcoholic encephalopathy, hepatic encephalopathy, or other etiology. There is a vague past history of neurosyphilis that has been treated This is a 60-year-old, white male, with a long history of mental health issues, trauma and addiction issues, who presents with depression, active addiction, and recent reported suicide attempt off of his medication, endorsing a willingness to restart his medication. Is not completely clear what is causing his confusional episodes. We appreciate Dr. Tovar's evaluation and recommendations. He will have an outpatient neurology consultation with Dr. Alberto, after discharge. (1) Confusion: We have decreased his medication. He is no longer on gabapentin, Artane, or Seroquel. Prozac was reduced from 40 mg to 20 mg daily. Will possibly consider Wellbutrin in the morning. It is possible that the patient's mood is less stable on the decreased dose of gabapentin. Alternatively it may just be his reaction to receiving what for him is devastating news. (2) Hepatitis C: Unknown if this has been treated in the past. Ammonia level is not elevated It is possible that his altered mental status could be related to alcoholic encephalopathy, hepatic encephalopathy, or other etiology. (3) Alcohol use disorder: (4) Major depressive disorder: The patient reports being depressed by the confusion he is experiencing. It does not appear that his depression is causing his confusion because he is cognizant of his confusion and is disturbed by it in a way that people with severe depression are usually not. (5) History of neurosyphilis. We will try to obtain old records regarding its treatment and diagnosis to see if it was sufficient. Still awaiting records. Involuntary Hold Information 96 Hour Hold: 96 Hour Involuntary Admission: No Attestations NPU Medical Necessity Statement*: Inpatient hospitalization is medically necessary and the clinically appropriate intervention, at this time. Given his level of confusion, he would not be able to live on his own. We will monitor medications and make changes as indicated. Likely length of stay is 2-4 more days. Coding Level of Care Code Acute Delivery Driver Assistant for Su Sweet
[2021-03-27 14:00] VITALS: BP 106/67; PULSE 60; RESP 16; TEMP 36.9; O2SAT 97
[2021-03-27 21:25] VITALS: BP 110/70; PULSE 57; RESP 17; TEMP 36.3; O2SAT 97
--- NOTE | 2021-03-28 03:25 | PC.NURSE ---
PM Assessment PT DENIES SI/HI/AH/VH. DENIES PAIN. SEEMS WITHDRAWN. PT STAYED IN HIS ROOM ENTIRE SHIFT. HEART AND LUNG SOUNDS ARE NORMAL. PT STILL SEEMS CONFUSED, QUESTIONS MUST BE DIRECT AND HE RESPONDS BEST TO THOSE WITH SHORT ANSWERS.
[2021-03-28 06:00] VITALS: BP 131/86; PULSE 78; RESP 15; TEMP 36.6; O2SAT 98
--- NOTE | 2021-03-28 08:19 | PM.EVENT ---
Event Note Event Note: I reviewed notes from [facility]. He did stay and complete his prescribed PCN dosing for entire course.
[2021-03-28] MEDS: multivitamin therapeutic Tablet 1 TAB PO (09:04)
[2021-03-28] MEDS: thiamine 100 mg Tablet PO (09:04)
[2021-03-28] MEDS: fluoxetine 20 mg Capsule PO (09:04)
[2021-03-28] MEDS: folic acid 1 mg Tablet PO (09:04)
[2021-03-28 14:00] VITALS: BP 113/78; PULSE 65; RESP 18; TEMP 36.8; O2SAT 99
--- NOTE | 2021-03-28 15:21 | NPU.GN ---
[facility] Topic:Depression BINGO General Mood of Group: General mood was talkative. Seemed like most everyone in the group was talkative. This group was exceptionable large. They seemed to all want to speak at the same time. This patient came to group on time and dressed appropriate with good hygiene. This patient did participate and did ask questions. Ede was a tad quiet but did participate in BINGO.
--- NOTE | 2021-03-28 18:11 | P.PN_ITS ---
Subjective NPU Subjective: Interval history: Presented today continuing to say he felt depressed and confused. He denied feeling better though he did appear to have some greater clarity in his interactions. We discussed the risk benefits and alternatives of starting Wellbutrin XL 150 mg p.o. every morning in the morning for his symptoms. Mental Status Exam MSE Comments: This is a well-nourished, well-developed, and fairly well groomed white male. Cooperative with exam. In continued mild distress. Fair eye contact. No abnormal movements or tics noted. Speech was more of a regular rate and rhythm, but some decreased volume. Mood described as depressed; affect congruent, but still confused. Thought process was more organized, but still impaired. Thought content: patient has passive but not active suicidal ideation. No homicidal ideation. No delusions reported or noted. The patient denied any auditory or visual hallucinations. Attention, concentration, and memory are somewhat impaired. He is alert and oriented to person and situation. Insight and judgment are limited, impulse control is limited. Vitals/I&O/Wt Last Vital Signs Temp 97.8 F 03/28/21 21:08 Pulse 67 03/28/21 21:08 Resp 19 H 03/28/21 21:08 BP 128/77 03/28/21 21:08 Pulse Ox 97 03/28/21 21:08 Weight last 48 hrs Weight 71.668 kg Data NPU : 03/16/21 13:13 03/16/21 13:13 A&P Additional A&P Information 1) Major depressive disorder: (2) Altered mental status: (3) Confusion: (4) Mild benzodiazepine use disorder: (5) Alcohol use disorder: (6) Hepatitis C: 1) Confusion: Etiology is not completely clear. Both patient, and relative(mother) believe that confusion, slurred speech have started since this hospital stay. It is possible this could be medicine related if he is not used to taking the medication he has been receiving on his home medicine list. It is also possible this could be related to alcoholic encephalopathy, hepatic encephalopathy, or other etiology. There is a vague past history of neurosyphilis that has been treated This is a 60-year-old, white male, with a long history of mental health issues, trauma and addiction issues, who presents with depression, active addiction, and recent reported suicide attempt off of his medication, endorsing a willingness to restart his medication. Is not completely clear what is causing his confusional episodes. We appreciate Dr. Tovar's evaluation and recommendations. He will have an outpatient neurology consultation with Dr. Alberto, after discharge. (1) Confusion: We have decreased his medication. He is no longer on gabapentin, Artane, or Seroquel. Prozac was reduced from 40 mg to 20 mg daily. Will possibly consider Wellbutrin in the morning. It is possible that the patient's mood is less stable on the decreased dose of gabapentin. Alternatively it may just be his reaction to receiving what for him is devastating news. (2) Hepatitis C: Unknown if this has been treated in the past. Ammonia level is not elevated It is possible that his altered mental status could be related to alcoholic encephalopathy, hepatic encephalopathy, or other etiology. (3) Alcohol use disorder: (4) Major depressive disorder: The patient reports being depressed by the confusion he is experiencing. It does not appear that his depression is causing his confusion because he is cognizant of his confusion and is disturbed by it in a way that people with severe depression are usually not. (5) History of neurosyphilis. We will try to obtain old records regarding its treatment and diagnosis to see if it was sufficient. Still awaiting records. Involuntary Hold Information 96 Hour Hold: 96 Hour Involuntary Admission: No Attestations NPU Medical Necessity Statement*: Inpatient hospitalization is medically necessary and the clinically appropriate intervention, at this time. Given his level of confusion, he would not be able to live on his own. We will monitor medications and make changes as indicated. Likely length of stay is 2-4 more days. Coding Level of Care Code Acute Safekeeping Clerk for Su Sweet
[2021-03-28 21:08] VITALS: BP 128/77; PULSE 67; RESP 19; TEMP 36.6; O2SAT 97
[2021-03-29 06:00] VITALS: BP 122/77; PULSE 55; RESP 16; TEMP 37.1; O2SAT 98
[2021-03-29] MEDS: fluoxetine 20 mg Capsule PO (08:16)
[2021-03-29] MEDS: multivitamin therapeutic Tablet 1 TAB PO (08:16)
[2021-03-29] MEDS: folic acid 1 mg Tablet PO (08:16)
[2021-03-29] MEDS: thiamine 100 mg Tablet PO (08:16)
--- NOTE | 2021-03-29 11:00 | NPU.GN ---
[facility] Topic: Sail Boat/ Mechanisms General Mood of Group: <Ede did not attend group today.
[2021-03-29 14:00] VITALS: BP 120/83; PULSE 117; RESP 17; TEMP 36.8; O2SAT 96
[2021-03-29] MEDS: buPROPion XL (24 HR) 150 mg Tablet PO (14:03)
--- NOTE | 2021-03-29 15:47 | PM.NPN ---
Subjective NPU Subjective: Interval history: Patient presents today having had his first dose of Wellbutrin XL. He continues to be quite tremulous and appears anxious whenever the conversation. Behave as if questions being asked, with great pressure or penalty. He continues to be isolative and withdrawn. He endorses depression but more directly he endorses confusion and lack of clarity as to what he should do next. Mental Status Exam MSE Comments: This is a well-nourished, well-developed, and fairly well groomed white male. Cooperative with exam. In continued mild distress. Fair eye contact. No abnormal movements or tics noted. Speech was more of a regular rate and rhythm, but some decreased volume. Mood described as depressed; affect congruent, but still confused. Thought process was more organized, but still impaired. Thought content: patient has passive but not active suicidal ideation. No homicidal ideation. No delusions reported or noted. The patient denied any auditory or visual hallucinations. Attention, concentration, and memory are somewhat impaired. He is alert and oriented to person and situation. Insight and judgment are limited, impulse control is limited. Vitals/I&O/Wt Last Vital Signs Temp 98.3 F 03/29/21 14:00 Pulse 117 H 03/29/21 14:00 Resp 17 03/29/21 14:00 BP 120/83 03/29/21 14:00 Pulse Ox 96 03/29/21 14:00 Data NPU : 03/16/21 13:13 03/16/21 13:13 A&P Additional A&P Information (2) Altered mental status: (3) Confusion: (4) Mild benzodiazepine use disorder: (5) Alcohol use disorder: (6) Hepatitis C: 1) Confusion: Etiology is not completely clear. Both patient, and relative(mother) believe that confusion, slurred speech have started since this hospital stay. It is possible this could be medicine related if he is not used to taking the medication he has been receiving on his home medicine list. It is also possible this could be related to alcoholic encephalopathy, hepatic encephalopathy, or other etiology. There is a vague past history of neurosyphilis that has been treated This is a 60-year-old, white male, with a long history of mental health issues, trauma and addiction issues, who presents with depression, active addiction, and recent reported suicide attempt off of his medication, endorsing a willingness to restart his medication. Is not completely clear what is causing his confusional episodes. We appreciate Dr. Tovar's evaluation and recommendations. He will have an outpatient neurology consultation with Dr. Alberto, after discharge. (1) Confusion: We have decreased his medication. He is no longer on gabapentin, Artane, or Seroquel. Prozac was reduced from 40 mg to 20 mg daily. Started Wellbutrin XL 100 mg p.o. every morning. It is possible that the patient's mood is less stable on the decreased dose of gabapentin. Alternatively it may just be his reaction to receiving what for him is devastating news. (2) Hepatitis C: Unknown if this has been treated in the past. Ammonia level is not elevated It is possible that his altered mental status could be related to alcoholic encephalopathy, hepatic encephalopathy, or other etiology. (3) Alcohol use disorder: (4) Major depressive disorder: The patient reports being depressed by the confusion he is experiencing. It does not appear that his depression is causing his confusion because he is cognizant of his confusion and is disturbed by it in a way that people with severe depression are usually not. (5) History of neurosyphilis. We will try to obtain old records regarding its treatment and diagnosis to see if it was sufficient. Still awaiting records. Involuntary Hold Information 96 Hour Hold: 96 Hour Involuntary Admission: No Attestations NPU Medical Necessity Statement*: Inpatient hospitalization is medically necessary and the clinically appropriate intervention, at this time. Given his level of confusion, he would not be able to live on his own. We will monitor medications and make changes as indicated. Likely length of stay is 2-4 more days. At this point finding him a place where he could have what is going to be a longer convalescence appears necessary. Coding Level of Care Code Acute Molding Engineer for Su Sweet
[2021-03-29 22:00] VITALS: BP 103/64; PULSE 70; RESP 14; TEMP 36.3; O2SAT 96
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
[2021-03-30 06:00] VITALS: BP 117/75; PULSE 71; RESP 20; TEMP 36.3; O2SAT 96
[2021-03-30] MEDS: multivitamin therapeutic Tablet 1 TAB PO (11:33)
[2021-03-30] MEDS: fluoxetine 20 mg Capsule PO (11:33)
[2021-03-30] MEDS: folic acid 1 mg Tablet PO (11:33)
[2021-03-30] MEDS: thiamine 100 mg Tablet PO (11:33)
[2021-03-30] MEDS: buPROPion XL (24 HR) 150 mg Tablet PO (11:34)
--- NOTE | 2021-03-30 13:15 | NPU.GN ---
[facility] Topic: Anxiety Bingo General Mood of Group: Ede did not attend group today as he had tremors.
[2021-03-30 13:43] VITALS: BP 122/80; PULSE 103; RESP 15; TEMP 36.8; O2SAT 95
--- NOTE | 2021-03-30 18:54 | PM.NPN ---
Subjective NPU Subjective: Interval history: Patient presents today continuing to have that same [id number] reaction when asked several questions like how are you or how you are feeling. He immediately responds with very dramatic hand waiting expressing how out of sorts his thoughts are and his confusion and him not knowing what to do. Mental Status Exam MSE Comments: This is a well-nourished, well-developed, and fairly well groomed white male. Cooperative with exam. In continued mild distress. Fair eye contact. No abnormal movements or tics noted. Speech was more of a regular rate and rhythm, but some decreased volume. Mood described as depressed and confused; affect congruent, but still confused. Thought process was more organized, but still impaired. Thought content: patient has passive but not active suicidal ideation. No homicidal ideation. No delusions reported or noted. The patient denied any auditory or visual hallucinations. Attention, concentration, and memory are somewhat impaired. He is alert and oriented to person and situation. Insight and judgment are limited, impulse control is limited. Vitals/I&O/Wt Last Vital Signs Temp 98.0 F 03/30/21 20:18 Pulse 95 03/30/21 20:18 Resp 18 03/30/21 20:18 BP 128/82 03/30/21 20:18 Pulse Ox 97 03/30/21 20:18 Data NPU : 03/16/21 13:13 03/16/21 13:13 A&P Additional A&P Information (2) Altered mental status: (3) Confusion: (4) Mild benzodiazepine use disorder: (5) Alcohol use disorder: (6) Hepatitis C: 1) Confusion: Etiology is not completely clear. Both patient, and relative(mother) believe that confusion, slurred speech have started since this hospital stay. It is possible this could be medicine related if he is not used to taking the medication he has been receiving on his home medicine list. It is also possible this could be related to alcoholic encephalopathy, hepatic encephalopathy, or other etiology. There is a vague past history of neurosyphilis that has been treated This is a 60-year-old, white male, with a long history of mental health issues, trauma and addiction issues, who presents with depression, active addiction, and recent reported suicide attempt off of his medication, endorsing a willingness to restart his medication. Is not completely clear what is causing his confusional episodes. We appreciate Dr. Tovar's evaluation and recommendations. He will have an outpatient neurology consultation with Dr. Alberto, after discharge. (1) Confusion: We have decreased his medication. He is no longer on gabapentin, Artane, or Seroquel. Prozac was reduced from 40 mg to 20 mg daily. Started Wellbutrin XL 100 mg p.o. every morning. It is possible that the patient's mood is less stable on the decreased dose of gabapentin. Alternatively it may just be his reaction to receiving what for him is devastating news. (2) Hepatitis C: Unknown if this has been treated in the past. Ammonia level is not elevated It is possible that his altered mental status could be related to alcoholic encephalopathy, hepatic encephalopathy, or other etiology. (3) Alcohol use disorder: (4) Major depressive disorder: The patient reports being depressed by the confusion he is experiencing. It does not appear that his depression is causing his confusion because he is cognizant of his confusion and is disturbed by it in a way that people with severe depression are usually not. (5) History of neurosyphilis. We will try to obtain old records regarding its treatment and diagnosis to see if it was sufficient. Still awaiting records. Involuntary Hold Information 96 Hour Hold: 96 Hour Involuntary Admission: No Attestations NPU Medical Necessity Statement*: Inpatient hospitalization is medically necessary and the clinically appropriate intervention, at this time. Given his level of confusion, he would not be able to live on his own. We will monitor medications and make changes as indicated. Likely length of stay is 2-4 more days. At this point finding him a place where he could have what is going to be a longer convalescence appears necessary. Coding Level of Care Code Acute Flame Annealing Machine Setter for Su Sweet
[2021-03-30 20:18] VITALS: BP 128/82; PULSE 95; RESP 18; TEMP 36.7; O2SAT 97
--- NOTE | 2021-03-31 03:43 | PC.NURSE ---
No PRN medications this shift.
[2021-03-31 05:59] VITALS: BP 113/73; PULSE 82; RESP 18; TEMP 36.7; O2SAT 95
[2021-03-31] MEDS: multivitamin therapeutic Tablet 1 TAB PO (08:56)
[2021-03-31] MEDS: buPROPion XL (24 HR) 150 mg Tablet PO (08:56)
[2021-03-31] MEDS: folic acid 1 mg Tablet PO (08:56)
[2021-03-31] MEDS: fluoxetine 20 mg Capsule PO (08:56)
[2021-03-31] MEDS: thiamine 100 mg Tablet PO (08:56)
--- NOTE | 2021-03-31 11:53 | NPU.GN ---
[facility] Topic:Anger General Mood of Group: Client did not attend group today.
--- NOTE | 2021-03-31 12:42 | PM.NPN ---
Subjective NPU Subjective: Interval history: Patient presents today a little less demonstrative when the conversation started. Continue to exhibit in his room not interacting with others. Seems to suggest today that he might be a little bit better. But continuing to have limitations in spontaneous behavior. Mental Status Exam MSE Comments: This is a well-nourished, well-developed, and fairly well groomed white male. Cooperative with exam. In continued mild distress. Fair eye contact. No abnormal movements or tics noted. Speech was more of a regular rate and rhythm, but some decreased volume. Mood described as depressed and confused; affect congruent, but still confused. Thought process was more organized, but still impaired. Thought content: patient has passive but not active suicidal ideation. No homicidal ideation. No delusions reported or noted. The patient denied any auditory or visual hallucinations. Attention, concentration, and memory are somewhat impaired. He is alert and oriented to person and situation. Insight and judgment are limited, impulse control is limited. Vitals/I&O/Wt Last Vital Signs Temp 98.1 F 03/31/21 05:59 Pulse 82 03/31/21 05:59 Resp 18 03/31/21 05:59 BP 113/73 03/31/21 05:59 Pulse Ox 95 05:59 Data NPU : 03/16/21 13:13 03/16/21 13:13 A&P Additional A&P Information (2) Altered mental status: (3) Confusion: (4) Mild benzodiazepine use disorder: (5) Alcohol use disorder: (6) Hepatitis C: 1) Confusion: Etiology is not completely clear. Both patient, and relative(mother) believe that confusion, slurred speech have started since this hospital stay. It is possible this could be medicine related if he is not used to taking the medication he has been receiving on his home medicine list. It is also possible this could be related to alcoholic encephalopathy, hepatic encephalopathy, or other etiology. There is a vague past history of neurosyphilis that has been treated This is a 60-year-old, white male, with a long history of mental health issues, trauma and addiction issues, who presents with depression, active addiction, and recent reported suicide attempt off of his medication, endorsing a willingness to restart his medication. Is not completely clear what is causing his confusional episodes. We appreciate Dr. Tovar's evaluation and recommendations. He will have an outpatient neurology consultation with Dr. Alberto, after discharge. (1) Confusion: We have decreased his medication. He is no longer on gabapentin, Artane, or Seroquel. Prozac was reduced from 40 mg to 20 mg daily. Started Wellbutrin XL 100 mg p.o. every morning. It is possible that the patient's mood is less stable on the decreased dose of gabapentin. Alternatively it may just be his reaction to receiving what for him is devastating news. It may be time to see if a reassessment or EEG or something would be indicated by neurology to identify whether there is something we are not understanding as concerns existed about whether this is a new baseline. (2) Hepatitis C: Unknown if this has been treated in the past. Ammonia level is not elevated It is possible that his altered mental status could be related to alcoholic encephalopathy, hepatic encephalopathy, or other etiology. (3) Alcohol use disorder: (4) Major depressive disorder: The patient reports being depressed by the confusion he is experiencing. It does not appear that his depression is causing his confusion because he is cognizant of his confusion and is disturbed by it in a way that people with severe depression are usually not. (5) History of neurosyphilis. We will try to obtain old records regarding its treatment and diagnosis to see if it was sufficient. Still awaiting records. Involuntary Hold Information 96 Hour Hold: 96 Hour Involuntary Admission: No Attestations NPU Medical Necessity Statement*: Inpatient hospitalization is medically necessary and the clinically appropriate intervention, at this time. Given his level of confusion, he would not be able to live on his own. We will monitor medications and make changes as indicated. Likely length of stay is 2-4 more days. At this point finding him a place where he could have what is going to be a longer convalescence appears necessary. Coding Level of Care Code Acute Inbound Call Center Representative for Su Sweet
[2021-03-31 14:00] VITALS: BP 114/78; PULSE 93; RESP 16; TEMP 36.2; O2SAT 96
[2021-03-31 21:21] VITALS: BP 112/73; PULSE 62; RESP 16; TEMP 36.8; O2SAT 97
[2021-04-01 05:48] VITALS: BP 112/73; PULSE 62; RESP 16; TEMP 36.8; O2SAT 97
--- NOTE | 2021-04-01 07:42 | P.PN_ITS ---
Subjective NPU Subjective: Interval history: Patient presents today endorsing maybe being a tad bit better. He reports that the falls are not as extreme. He continues to be quite isolative and spending time in his room only really moving around to eat or use the restroom. He reports that this is is been really traumatizing experience and he feels like this since the neurosyphilis treatment is is never been the same. But there is a possible Mental Status Exam MSE Comments: This is a well-nourished, well-developed, and fairly well groomed white male. Cooperative with exam. In continued mild distress. Fair eye contact. No abnormal movements or tics noted. Speech was more regular rate and rhythm, but some decreased volume. Mood described as less depressed and confused; affect congruent. Thought process was more organized, and less impaired. Thought content: patient has passive but not active suicidal ideation. No homicidal ideation. No delusions reported or noted. The patient denied any auditory or visual hallucinations. Attention, concentration, and memory are somewhat impaired. He is alert and oriented to person and situation. Insight and judgment are limited, impulse control is limited. Vitals/I&O/Wt Last Vital Signs Temp 98.2 F 04/01/21 05:48 Pulse 62 04/01/21 05:48 Resp 16 04/01/21 05:48 BP 112/73 04/01/21 05:48 Pulse Ox 97 04/01/21 05:48 Data NPU : 03/16/21 13:13 03/16/21 13:13 A&P Additional A&P Information (2) Altered mental status: (3) Confusion: (4) Mild benzodiazepine use disorder: (5) Alcohol use disorder: (6) Hepatitis C: 1) Confusion: Etiology is not completely clear. Both patient, and relative(mother) believe that confusion, slurred speech have started since this hospital stay. It is possible this could be medicine related if he is not used to taking the medication he has been receiving on his home medicine list. It is also possible this could be related to alcoholic encephalopathy, hepatic encephalopathy, or other etiology. There is a vague past history of neurosyphilis that has been treated This is a 60-year-old, white male, with a long history of mental health issues, trauma and addiction issues, who presents with depression, active addiction, and recent reported suicide attempt off of his medication, endorsing a willingness to restart his medication. Is not completely clear what is causing his confusional episodes. We appreciate Dr. Tovar's evaluation and recommendations. He will have an outpatient neurology consultation with Dr. Alberto, after discharge. (1) Confusion: We have decreased his medication. He is no longer on gabapentin, Artane, or Seroquel. Prozac was reduced from 40 mg to 20 mg daily. It may be time to see if a reassessment or EEG or something would be indicated by neurology to identify whether there is something we are not understanding as concerns existed about whether this is a new baseline. (2) Hepatitis C: Unknown if this has been treated in the past. Ammonia level is not elevated It is possible that his altered mental status could be related to alcoholic encephalopathy, hepatic encephalopathy, or other etiology. (3) Alcohol use disorder: (4) Major depressive disorder: The patient reports being depressed by the confusion he is experiencing. It does not appear that his depression is causing his confusion because he is cognizant of his confusion and is disturbed by it in a way that people with severe depression are usually not. (5) History of neurosyphilis. We will try to obtain old records regarding its treatment and diagnosis to see if it was sufficient. Still awaiting records. Some people try to get me to go down there. Working and probably watching football and working Involuntary Hold Information 96 Hour Hold: 96 Hour Involuntary Admission: No Attestations NPU Medical Necessity Statement*: Inpatient hospitalization is medically necessary and the clinically appropriate intervention, at this time. Given his level of confusion, he would not be able to live on his own. We will monitor medications and make changes as indicated. Likely length of stay is 2-4 more days. At this point finding him a place where he could have what is going to be a longer convalescence appears necessary. Coding Level of Care Code Acute Information Systems Security Officer for Su Sweet
[2021-04-01] MEDS: fluoxetine 20 mg Capsule PO (10:45)
[2021-04-01] MEDS: thiamine 100 mg Tablet PO (10:45)
[2021-04-01] MEDS: multivitamin therapeutic Tablet 1 TAB PO (10:45)
[2021-04-01] MEDS: buPROPion XL (24 HR) 150 mg Tablet PO (10:45)
[2021-04-01] MEDS: folic acid 1 mg Tablet PO (10:45)
[2021-04-01] MEDS: ondansetron 4 MG Tablet PO ×2 (11:34→11:55)
[2021-04-01 14:00] VITALS: BP 126/78; PULSE 71; RESP 18; TEMP 36.8; O2SAT 96
[2021-04-01 20:26] VITALS: BP 118/78; PULSE 70; RESP 21; TEMP 36.8; O2SAT 95
[2021-04-02 06:00] VITALS: BP 130/73; PULSE 65; RESP 16; TEMP 36.9; O2SAT 94
[2021-04-02] MEDS: thiamine 100 mg Tablet PO (08:56)
[2021-04-02] MEDS: buPROPion XL (24 HR) 150 mg Tablet PO (08:56)
[2021-04-02] MEDS: fluoxetine 20 mg Capsule PO (08:56)
[2021-04-02] MEDS: folic acid 1 mg Tablet PO (08:56)
[2021-04-02] MEDS: multivitamin therapeutic Tablet 1 TAB PO (08:56)
--- NOTE | 2021-04-02 09:34 | P.PN_ITS ---
Subjective NPU Subjective: Interval history: Ede resents today reporting that he is starting to feel a tiny sense of improvement overall but still feels like this is a war. In general though he feels a little more optimistic about the possibilities. He reports this is when the hardest thing that he is ever dealt with feeling this way. Mental Status Exam MSE Comments: This is a well-nourished, well-developed, and fairly well groomed white male. Cooperative with exam. In continued mild distress. Fair eye contact. No abnormal movements except for shaking when a conversation is initiated. Speech was more regular rate and rhythm, but some decreased volume. Mood described as maybe a little better; affect congruent. Thought process was more organized, and less impaired. Thought content: patient has passive but not active suicidal ideation. No homicidal ideation. No delusions reported or note d. The patient denied any auditory or visual hallucinations. Attention, concentration, and memory are somewhat impaired. He is alert and oriented to person and situation. Insight and judgment are limited, impulse control is limited. Vitals/I&O/Wt Last Vital Signs Temp 98.4 F 04/02/21 06:00 Pulse 65 04/02/21 06:00 Resp 16 04/02/21 06:00 BP 130/73 04/02/21 06:00 Pulse Ox 94 04/02/21 06:00 Data NPU : 03/16/21 13:13 03/16/21 13:13 A&P Additional A&P Information (2) Altered mental status: (3) Confusion: (4) Mild benzodiazepine use disorder: (5) Alcohol use disorder: (6) Hepatitis C: 1) Confusion: Etiology is not completely clear. Both patient, and relative(mother) believe that confusion, slurred speech have started since this hospital stay. It is possible this could be medicine related if he is not used to taking the medication he has been receiving on his home medicine list. It is also possible this could be related to alcoholic encephalopathy, hepatic encephalopathy, or other etiology. There is a vague past history of neurosyphilis that has been treated This is a 60-year-old, white male, with a long history of mental health issues, trauma and addiction issues, who presents with depression, active addiction, and recent reported suicide attempt off of his medication, endorsing a willingness to restart his medication. Is not completely clear what is causing his confusional episodes. We appreciate Dr. Tovar's evaluation and recommendations. He will have an outpatient neurology consultation with Dr. Alberto, after discharge. (1) Confusion: We have decreased his medication. It may be time to see if a reassessment or EEG or something would be indicated by neurology to identify whether there is something we are not understanding as concerns existed about whether this is a new baseline. (2) Hepatitis C: Unknown if this has been treated in the past. Ammonia level is not elevated It is possible that his altered mental status could be related to alcoholic encephalopathy, hepatic encephalopathy, or other etiology. (3) Alcohol use disorder: (4) Major depressive disorder: The patient reports being depressed by the confusion he is experiencing. It does not appear that his depression is causing his confusion because he is cognizant of his confusion and is disturbed by it in a way that people with severe depression are usually not. (5) History of neurosyphilis. We will try to obtain old records regarding its treatment and diagnosis to see if it was sufficient. Still awaiting records. Some people try to get me to go down there. Working and probably watching football and working Involuntary Hold Information 96 Hour Hold: 96 Hour Involuntary Admission: No Attestations NPU Medical Necessity Statement*: Inpatient hospitalization is medically necessary and the clinically appropriate intervention, at this time. Given his level of confusion, he would not be able to live on his own. We will monitor medications and make changes as indicated. Likely length of stay is 2-4 more days. At this point finding him a place where he could have what is going to be a longer convalescence appears necessary. Coding Level of Care Code Acute Supervisor Crack Off for Su Sweet
[2021-04-02 14:00] VITALS: BP 120/81; PULSE 68; RESP 18; TEMP 36.1; O2SAT 97
[2021-04-02 20:31] VITALS: BP 108/73; PULSE 73; RESP 21; TEMP 36.8; O2SAT 97
[2021-04-03 05:58] VITALS: BMI 26.2
[2021-04-03 06:00] VITALS: BP 113/71; PULSE 60; RESP 16; TEMP 36.6; O2SAT 98
[2021-04-03] MEDS: fluoxetine 20 mg Capsule PO (09:29)
[2021-04-03] MEDS: buPROPion XL (24 HR) 150 mg Tablet PO (09:29)
[2021-04-03] MEDS: multivitamin therapeutic Tablet 1 TAB PO (09:29)
[2021-04-03] MEDS: thiamine 100 mg Tablet PO (09:29)
[2021-04-03] MEDS: folic acid 1 mg Tablet PO (09:29)
[2021-04-03 14:00] VITALS: BP 102/71; PULSE 70; RESP 15; TEMP 36.7; O2SAT 97
--- NOTE | 2021-04-03 18:46 | P.PN_ITS ---
Subjective NPU Subjective: Interval history: Patient presents today once again laying in his bed. He reports however that he has been up a little more. We discussed him seeing if he could be a little more engaged and out of his bed hoping that by moving around and being more active he might feel little better. He endorsed that he feels like he is been doing that but that he will try to do it more. Mental Status Exam MSE Comments: This is a well-nourished, well-developed, and fairly well groomed white male. Cooperative with exam. In continued mild distress. Fair eye contact. No abnormal movements except for shaking when a conversation is initiated. Speech was more regular rate and rhythm, but some decreased volume. Mood described as maybe a little better; affect congruent. Thought process was more organized, and less impaired. Thought content: patient has passive but not active suicidal ideation. No homicidal ideation. No delusions reported or noted. The patient denied any auditory or visual hallucinations. Attention, concentration, and memory are somewhat impaired. He is alert and oriented to person and situation. Insight and judgment are limited, impulse control is limited. Vitals/I&O/Wt Last Vital Signs Temp 98.1 F 04/03/21 20:11 Pulse 68 04/03/21 20:11 Resp 17 04/03/21 20:11 BP 118/67 04/03/21 20:11 Pulse Ox 95 04/03/21 20:11 Weight last 48 hrs Weight 71.668 kg Data NPU : 03/16/21 13:13 03/16/21 13:13 A&P Additional A&P Information (2) Altered mental status: (3) Confusion: (4) Mild benzodiazepine use disorder: (5) Alcohol use disorder: (6) Hepatitis C: 1) Confusion: Etiology is not completely clear. Both patient, and relative(mother) believe that confusion, slurred speech have started since this hospital stay. It is possible this could be medicine related if he is not used to taking the medication he has been receiving on his home medicine list. It is also possible this could be related to alcoholic encephalopathy, hepatic encephalopathy, or other etiology. There is a vague past history of neurosyphilis that has been treated This is a 60-year-old, white male, with a long history of mental health issues, trauma and addiction issues, who presents with depression, active addiction, and recent reported suicide attempt off of his medication, endorsing a willingness to restart his medication. Is not completely clear what is causing his confusional episodes. We appreciate Dr. Tovar's evaluation and recommendations. He will have an outpatient neurology consultation with Dr. Alberto, after discharge. (1) Confusion: We have decreased his medication. It may be time to see if a reassessment or EEG or something would be indicated by neurology to identify whether there is something we are not understanding as concerns existed about whether this is a new baseline. (2) Hepatitis C: Unknown if this has been treated in the past. Ammonia level is not elevated It is possible that his altered mental status could be related to alcoholic encephalopathy, hepatic encephalopathy, or other etiology. (3) Alcohol use disorder: (4) Major depressive disorder: The patient reports being depressed by the confusion he is experiencing. It does not appear that his depression is causing his confusion because he is cognizant of his confusion and is disturbed by it in a way that people with severe depression are usually not. (5) History of neurosyphilis. We will try to obtain old records regarding its treatment and diagnosis to see if it was sufficient. Still awaiting records. Some people try to get me to go down there. Working and probably watching football and working Involuntary Hold Information 96 Hour Hold: 96 Hour Involuntary Admission: No Attestations NPU Medical Necessity Statement*: Inpatient hospitalization is medically necessary and the clinically appropriate intervention, at this time. Given his level of confusion, he would not be able to live on his own. We will monitor medications and make changes as indicated. Likely length of stay is 2-4 more days. At this point finding him a place where he could have what is going to be a longer convalescence appears necessary. Coding Level of Care Code Acute Mechanical Shovel Operator for Su Sweet
[2021-04-03 20:11] VITALS: BP 118/67; PULSE 68; RESP 17; TEMP 36.7; O2SAT 95
--- NOTE | 2021-04-04 01:58 | PC.NURSE ---
PM Assessment beginning of shift, pt is in his room, awake. He has grown a sanchez, nurse asked if this was something that he wanted and he smiled and said No I would like to shave but I need help because I am shaking so bad. Pt reports losing periods of time, decreased confusion, speech and conversation is much more clear than it has been in the last couple of weeks. Pt relayed that he is going to be released into another care facility to meet his physical and mental health care needs. Pt denies need for any PRN medication Pt reports feeling like All the Cammy in his life was sucked out of him since he has been on the wellbutrin, he lacks the will to get out of bed. It makes me depressed and want to go to sleep and just not get up any more. Pt did get out of bed for snack and requested help shaving in the morning.
[2021-04-04 06:00] VITALS: BP 125/78; PULSE 59; RESP 18; TEMP 36.8; O2SAT 95
[2021-04-04] MEDS: folic acid 1 mg Tablet PO (08:03)
[2021-04-04] MEDS: buPROPion XL (24 HR) 150 mg Tablet PO (08:03)
[2021-04-04] MEDS: thiamine 100 mg Tablet PO (08:03)
[2021-04-04] MEDS: multivitamin therapeutic Tablet 1 TAB PO (08:03)
[2021-04-04] MEDS: fluoxetine 20 mg Capsule PO (08:03)
--- NOTE | 2021-04-04 11:26 | NPU.GN ---
[facility] Topic:Kumar Breaker General Mood of Group: Ede did not attend group therapy today. Ede reports almost every morning that he has the tremors / shakes really bad. Therefore Ede does not attend group therapy and refuses to attend. .
--- NOTE | 2021-04-04 11:44 | PC.NURSE ---
Patient continues to self-isolate, resting in his room majority of the shifts, behaviors are calm and cooperative. Patient continues to have a moderate amount of upper extremity tremors that are affecting his ability to feed himself. Speech has improved and able to conduct logical conversations. Plan to discuss with physician weighted utensils to improve dietary intake for patient.
[2021-04-04 14:00] VITALS: BP 127/85; PULSE 71; RESP 18; TEMP 36.8; O2SAT 97
--- NOTE | 2021-04-04 16:34 | P.PN_ITS ---
Subjective NPU Subjective: Interval history: Patient presented today reporting that he feels that he is doing worse on the Wellbutrin. We discussed the risks, benefits and alternatives of discontinuing the Wellbutrin and he understood and agreed to proceed as is documented in his note. Otherwise he denies any changes or issues and reports that he is eating and sleeping better but he continues to be isolative. Mental Status Exam MSE Comments: This is a well-nourished, well-developed, and fairly well groomed white male. Cooperative with exam. In continued mild distress. Fair eye contact. No abnormal movements except for shaking when a conversation is initiated. Speech was more regular rate and rhythm, but some decreased volume. Mood described as I do not know; affect congruent and caught in this negative loop.. Thought process was more organized, and less impaired. Thought content: patient has passive but not active suicidal ideation. No homicidal ideation. No delusions reported or noted. The patient denied any auditory or visual hallucinations. Attention, concentration, and memory are somewhat impaired. He is alert and oriented to person and situation. Insight and judgment are limited, impulse control is limited. Vitals/I&O/Wt Last Vital Signs Temp 98.2 F 04/04/21 14:00 Pulse 71 04/04/21 14:00 Resp 18 04/04/21 14:00 BP 127/85 04/04/21 14:00 Pulse Ox 97 04/04/21 14:00 Weight last 48 hrs Weight 71.668 kg Data NPU : 03/16/21 13:13 03/16/21 13:13 A&P Additional A&P Information (2) Altered mental status: (3) Confusion: (4) Mild benzodiazepine use disorder: (5) Alcohol use disorder: (6) Hepatitis C: 1) Confusion: Etiology is not completely clear. Both patient, and relative(mother) believe that confusion, slurred speech have started since this hospital stay. It is possible this could be medicine related if he is not used to taking the medication he has been receiving on his home medicine list. It is also possible this could be related to alcoholic encephalopathy, hepatic encephalopathy, or other etiology. There is a vague past history of neurosyphilis that has been treated This is a 60-year-old, white male, with a long history of mental health issues, trauma and addiction issues, who presents with depression, active addiction, and recent reported suicide attempt off of his medication, endorsing a willingness to restart his medication. Is not completely clear what is causing his confusional episodes. We appreciate Dr. Tovar's evaluation and recommendations. He will have an outpatient neurology consultation with Dr. Alberto, after discharge. (1) Confusion: We have decreased his medication. It may be time to see if a reassessment or EEG or something would be indicated by neurology to identify whether there is something we are not understanding as concerns existed about whether this is a new baseline. (2) Hepatitis C: Unknown if this has been treated in the past. Ammonia level is not elevated It is possible that his altered mental status could be related to al coholic encephalopathy, hepatic encephalopathy, or other etiology. (3) Alcohol use disorder: (4) Major depressive disorder: The patient reports being depressed by the confusion he is experiencing. It does not appear that his depression is causing his confusion because he is cognizant of his confusion and is disturbed by it in a way that people with severe depression are usually not. Discontinue Wellbutrin XL 150 mg p.o. every morning. (5) History of neurosyphilis. We will try to obtain old records regarding its treatment and diagnosis to see if it was sufficient. Still awaiting records. S ome people try to get me to go down there. Working and probably watching football and working Involuntary Hold Information 96 Hour Hold: 96 Hour Involuntary Admission: No Attestations NPU Medical Necessity Statement*: Inpatient hospitalization is medically necessary and the clinically appropriate intervention, at this time. Given his level of confusion, he would not be able to live on his own. We will monitor medications and make changes as indicated. Likely length of stay is 2-4 more days. At this point finding him a place where he could have what is going to be a longer convalescence appears necessary. Coding Level of Care Code Acute Automotive Software Engineer for Su Sweet
[2021-04-04 20:06] VITALS: BP 113/71; PULSE 60; RESP 18; TEMP 36.4; O2SAT 96
[2021-04-04] MEDS: trazodone 50 mg Tablet PO (21:11)
[2021-04-05 06:00] VITALS: BP 110/72; PULSE 62; RESP 19; TEMP 36.8; O2SAT 94
[2021-04-05] MEDS: thiamine 100 mg Tablet PO (08:35)
[2021-04-05] MEDS: fluoxetine 20 mg Capsule PO (08:35)
[2021-04-05] MEDS: folic acid 1 mg Tablet PO (08:35)
[2021-04-05] MEDS: multivitamin therapeutic Tablet 1 TAB PO (08:35)
--- NOTE | 2021-04-05 11:46 | NPU.GN ---
[facility] Topic:Bindu General Mood of Group: Ramiro did not attend group therapy today as he has the shakes.
[2021-04-05 14:00] VITALS: BP 113/75; PULSE 59; RESP 17; TEMP 36.3; O2SAT 98
--- NOTE | 2021-04-05 18:06 | P.PN_ITS ---
Subjective NPU Subjective: Interval history: Patient presents today reporting that he feels these may be doing a little better with the discontinuation of the Wellbutrin. We are talking about his overall presentation and what we might be able to do for improvement. We discussed the risk of and alternatives of starting him on a 1 mg of Rexulti daily and he understood and agreed proceed as is documented in this note. Mental Status Exam MSE Comments: This is a well-nourished, well-developed, and fairly well groomed white male. Cooperative with exam. In continued mild distress. Fair eye contact. No abnormal movements except for shaking when a conversation is initiated. Speech was more regular rate and rhythm, but some decreased volume. Mood described as this is really tough; affect congruent and caught in this negative loop.. Thought process was more organized, and less impaired. Thought content: patient has passive but not active suicidal ideation. No homicidal ideation. No delusions reported or noted. The patient denied any auditory or visual hallucinations. Attention, concentration, and memory are somewhat impaired. He is alert and oriented to person and situation. Insight and judgment are limited, impulse control is limited. Vitals/I&O/Wt Last Vital Signs Temp 97.8 F 04/05/21 20:37 Pulse 114 H 04/05/21 20:37 Resp 15 04/05/21 20:37 BP 140/83 04/05/21 20:37 Pulse Ox 98 04/05/21 20:37 Data NPU : 03/16/21 13:13 03/16/21 13:13 A&P Additional A&P Information (2) Altered mental status: (3) Confusion: (4) Mild benzodiazepine use disorder: (5) Alcohol use disorder: (6) Hepatitis C: 1) Confusion: Etiology is not completely clear. Both patient, and relative(mother) believe that confusion, slurred speech have started since this hospital stay. It is possible this could be medicine related if he is not used to taking the medication he has been receiving on his home medicine list. It is also possible this could be related to alcoholic encephalopathy, hepatic encephalopathy, or other etiology. There is a vague past history of neurosyphilis that has been treated This is a 60-year-old, white male, with a long history of mental health issues, trauma and addiction issues, who presents with depression, active addiction, and recent reported suicide attempt off of his medication, endorsing a willingness to restart his medication. Is not completely clear what is causing his confusional episodes. We appreciate Dr. Tovar's evaluation and recommendations. He will have an outpatient neurology consultation with Dr. Alberto, after discharge. (1) Confusion: We have decreased his medication. It may be time to see if a reassessment or EEG or something would be indicated by neurology to identify whether there is something we are not understanding as concerns existed about whether this is a new baseline. (2) Hepatitis C: Unknown if this has been treated in the past. Ammonia level is not elevated It is possible that his altered mental status could be related to alcoholic encephalopathy, hepatic encephalopathy, or other etiology. (3) Alcohol use disorder: (4) Major depressive disorder: The patient reports being depressed by the confusion he is experiencing. Start Rexulti 1 mg p.o. daily. (5) History of neurosyphilis. Records reviewed and he appeared to get the appropriate treatment. Involuntary Hold Information 96 Hour Hold: 96 Hour Involuntary Admission: No Attestations NPU Medical Necessity Statement*: Inpatient hospitalization is medically necessary and the clinically appropriate intervention, at this time. Given his level of confusion, he would not be able to live on his own. We will monitor medications and make changes as indicated. Likely length of stay is 2-4 more days. At this point finding him a place where he could have what is going to be a longer convalescence appears necessary. Coding Level of Care Code Acute Director Data for Su Sweet
[2021-04-05 20:37] VITALS: BP 140/83; PULSE 114; RESP 15; TEMP 36.6; O2SAT 98
[2021-04-05] MEDS: trazodone 50 mg Tablet PO (20:39)
[2021-04-05] MEDS: quetiapine 100 mg Tablet 50 MG PO (20:39)
[2021-04-05] MEDS: hyDROXYzine 25 mg Capsule 50 MG PO (20:39)
[2021-04-06 06:00] VITALS: BP 114/72; PULSE 62; RESP 16; TEMP 36.8; O2SAT 96
[2021-04-06] MEDS: folic acid 1 mg Tablet PO (09:37)
[2021-04-06] MEDS: fluoxetine 20 mg Capsule PO (09:37)
[2021-04-06] MEDS: multivitamin therapeutic Tablet 1 TAB PO (09:37)
[2021-04-06] MEDS: thiamine 100 mg Tablet PO (09:37)
--- NOTE | 2021-04-06 09:48 | PC.NUTR ---
Addendum entered by Shiva Fleming 04/06/21 09:56: Edit: Received call from Ema Warner in OT, notified of need for weighted utensils for pt. Original Note: Nutrition note: This RD attempted again to reach OT regarding weighted utensils but still unsuccessful. See previous RD assessments for further details. Will follow up as appropriate.
--- NOTE | 2021-04-06 12:08 | NPU.GN ---
[facility] Topic:Coping Skills Bingo/ Cross word puzzle General Mood of Group: Ede did not attend and participate in group therapy this morning. He has the shakes and did not want to attend group therapy.
--- NOTE | 2021-04-06 12:55 | PM.NPN ---
Subjective NPU Subjective: Interval history: Patient presents today reporting that he is doing better than he had been doing though he does have some upset stomach but he cannot explain. We did discuss the fact that the Rexulti is not available on the unit and we will have to do some possible expiration of outpatient resources to consider that for medication. We discussed the treatment team continue to work on finding him an option for discharge. He reports he would be open to that and today was the first time he was able to have a more extensive conversation it was just about his thinking. Mental Status Exam MSE Comments: This is a well-nourished, well-developed, and fairly well groomed white male. Cooperative with exam. In continued mild distress. Fair eye contact. No abnormal movements except for shaking when a conversation is initiated. Speech was more regular rate and rhythm, but some decreased volume. Mood described as maybe slightly better; affect congruent and more able to have a coherent goal-directed conversation.. Thought process was more organized, and less impaired. Thought content: patient has passive but not active suicidal ideation. No homicidal ideation. No delusions reported or noted. The patient denied any auditory or visual hallucinations. Attention, concentration, and memory are somewhat impaired. He is alert and oriented to person and situation. Insight and judgment are limited, impulse control is limited. Vitals/I&O/Wt Last Vital Signs Temp 98.2 F 04/06/21 06:00 Pulse 62 04/06/21 06:00 Resp 16 04/06/21 06:00 BP 114/72 04/06/21 06:00 Pulse Ox 96 04/06/21 06:00 Data NPU : 03/16/21 13:13 03/16/21 13:13 A&P Additional A&P Information (2) Altered mental status: (3) Confusion: (4) Mild benzodiazepine use disorder: (5) Alcohol use disorder: (6) Hepatitis C: 1) Confusion: Etiology is not completely clear. Both patient, and relative(mother) believe that confusion, slurred speech have started since this hospital stay. It is possible this could be medicine related if he is not used to taking the medication he has been receiving on his home medicine list. It is also possible this could be related to alcoholic encephalopathy, hepatic encephalopathy, or other etiology. There is a vague past history of neurosyphilis that has been treated This is a 60-year-old, white male, with a long history of mental health issues, trauma and addiction issues, who presents with depression, active addiction, and recent reported suicide attempt off of his medication, endorsing a willingness to restart his medication. Is not completely clear what is causing his confusional episodes. We appreciate Dr. Tovar's evaluation and recommendations. He will have an outpatient neurology consultation with Dr. Alberto, after discharge. (1) Confusion: We have decreased his medication. It may be time to see if a reassessment or EEG or something would be indicated by neurology to identify whether there is something we are not understanding as concerns existed about whether this is a new baseline. (2) Hepatitis C: Unknown if this has been treated in the past. Ammonia level is not elevated It is possible that his altered mental status could be related to alcoholic encephalopathy, hepatic encephalopathy, or other etiology. (3) Alcohol use disorder: (4) Major depressive disorder: The patient reports being depressed by the confusion he is experiencing. Start Rexulti 1 mg p.o. daily. We will need to explore outpatient clinic for possible initiation of Rexulti. (5) History of neurosyphilis. Records reviewed and he appeared to get the appropriate treatment. Involuntary Hold Information 96 Hour Hold: 96 Hour Involuntary Admission: No Attestations NPU Medical Necessity Statement*: Inpatient hospitalization is medically necessary and the clinically appropriate intervention, at this time. Given his level of confusion, he would not be able to live on his own. We will monitor medications and make changes as indicated. Likely length of stay is 2-4 more days. At this point finding him a place where he could have what is going to be a longer convalescence appears necessary. Coding Level of Care Code Acute Countersinker Balance Screw Hole for Su Sweet
[2021-04-06 14:00] VITALS: BP 97/59; PULSE 64; RESP 18; TEMP 36.2; O2SAT 94
[2021-04-06 19:57] VITALS: BP 113/69; PULSE 73; RESP 18; TEMP 36.8; O2SAT 93
[2021-04-06] MEDS: trazodone 50 mg Tablet PO (20:37)
[2021-04-06] MEDS: hyDROXYzine 25 mg Capsule 50 MG PO (20:37)
[2021-04-07 06:00] VITALS: BP 107/66; PULSE 59; RESP 16; TEMP 36.7; O2SAT 93
[2021-04-07] MEDS: fluoxetine 20 mg Capsule PO (08:43)
[2021-04-07] MEDS: thiamine 100 mg Tablet PO (08:43)
[2021-04-07] MEDS: multivitamin therapeutic Tablet 1 TAB PO (08:43)
[2021-04-07] MEDS: folic acid 1 mg Tablet PO (08:43)
--- NOTE | 2021-04-07 12:49 | NPU.GN ---
[facility] Topic:Coping Kills Checklist General Mood of Group: Ede did not attend group today because of his shakes.
[2021-04-07 14:00] VITALS: BP 124/72; PULSE 75; RESP 18; TEMP 36.5; O2SAT 98
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
[2021-04-07 20:07] VITALS: BP 126/76; PULSE 63; RESP 17; TEMP 36.8; O2SAT 98
[2021-04-07] MEDS: trazodone 50 mg Tablet PO (20:33)
[2021-04-07] MEDS: hyDROXYzine 25 mg Capsule 50 MG PO (20:33)
--- NOTE | 2021-04-08 05:11 | PC.NURSE ---
EVENING- Patient has been calm and cooperative. Isolative to room but appropriate upon approach. Denies SI/HI or AVH. Does continue to have substantial tremors noted. States that he is eating more foods now. Has Ensure and water at bedside. NIGHT- In bed resting with eyes closed throughout night. No complaints voiced. No distress noted. PRNs- Requested and received Trazodone and Vistaril at 2032 to good effect.
[2021-04-08 05:59] VITALS: BP 120/73; PULSE 63; RESP 16; TEMP 36.6; O2SAT 98
[2021-04-08 09:43] LABS: Basophils # 0.1 10^3/uL (0.0-0.1); Basophils % 0.9 %; Eosinophils # 0.2 10^3/uL (0.0-0.8); Eosinophils % 2.9 %; Hematocrit 49.8 % (42.0-52.0); Hemoglobin 15.3 g/dL (11.7-16.6); Lymphocytes # 1.4 10^3/uL (0.8-4.8); Lymphocytes % 23.7 %; Mean Corpuscular HGB Conc 30.7 g/dL (30.0-36.0); Mean Platelet Volume 10.2 fL (7.4-10.4); Monocytes # 0.5 10^3/uL (0.2-0.9); Monocytes % 8.1 %; Neutrophils # 3.72 10^3/uL (1.8-7.7); Neutrophils % 64.2 %; Nucleated Red Blood Cells % 0 %; Platelet Count 210 10^3/cmm (130-400); Red Blood Count 4.93 10^6/uL (4.1-5.3); White Blood Count 5.8 10^3/uL (4.0-10.0)
[2021-04-08] MEDS: folic acid 1 mg Tablet PO (10:03)
[2021-04-08] MEDS: fluoxetine 20 mg Capsule PO (10:03)
[2021-04-08] MEDS: thiamine 100 mg Tablet PO (10:03)
[2021-04-08] MEDS: multivitamin therapeutic Tablet 1 TAB PO (10:04)
[2021-04-08 11:08] LABS: Blood Urea Nitrogen 13 mg/dL (6-20); Calcium 9.5 mg/dL (8.5-10.5); Carbon Dioxide 19 mmol/L (22-29); Chloride 99 mmol/L (98-107); Glomerular Filtration Rate 99.3 mL/min (90-130); Glucose 93 mg/dL (65-115); Osmolality Calculated 280 mOsm/kg (285-295); Sodium 135 mmol/L (136-145)
[2021-04-08 11:09] LABS: Anion Gap 21.4 (5-19); Potassium 4.4 mmol/L (3.5-5.1)
[2021-04-08 14:00] VITALS: BP 134/78; PULSE 67; RESP 17; TEMP 36.8; O2SAT 98
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
[2021-04-08 20:28] VITALS: BP 131/78; PULSE 67; RESP 17; TEMP 36.5; O2SAT 98
[2021-04-08] MEDS: hyDROXYzine 25 mg Capsule 50 MG PO (20:41)
[2021-04-08] MEDS: trazodone 50 mg Tablet PO (20:41)
[2021-04-09 06:00] VITALS: BP 131/78; PULSE 67; RESP 17; TEMP 36.5; O2SAT 98
[2021-04-09 06:48] VITALS: BP 105/72; PULSE 62; RESP 17; TEMP 36.5; O2SAT 97
[2021-04-09] MEDS: folic acid 1 mg Tablet PO (09:01)
[2021-04-09] MEDS: thiamine 100 mg Tablet PO (09:01)
[2021-04-09] MEDS: fluoxetine 20 mg Capsule PO (09:01)
[2021-04-09] MEDS: multivitamin therapeutic Tablet 1 TAB PO (09:01)
[2021-04-09 14:00] VITALS: BP 163/65; PULSE 119; RESP 17; TEMP 36.5; O2SAT 94
--- NOTE | 2021-04-09 16:25 | P.PN_ITS ---
Subjective NPU Subjective: Interval history: I met with the patient in his room with the door open. He had taken a shower and said that that felt good. He said he slept well with trazodone and Vistaril last night, and does not feel groggy this morning. He says he has been remembering bad stuff from the past, such as unpleasant events related to his first . We talked about events from earlier in his life. When his father was dying, his sister asked him to come home to help take care of him. It felt good to him to be needed in this way. We also talked about his mother living in the house along with his sister, [id number] and their children. He feels she has made a good adjustment. Mental Status Exam MSE Comments: This is a well-nourished, well-developed, and fairly well groom ed white male. Cooperative with exam. In continued mild distress. Fair eye contact. He has a substantial tremor in his upper extremities that make it hard for him to hold a book, hold eating utensils, etc. Speech was more regular rate and rhythm, at a low volume. Mood is sad; affect congruent. Thought process was fairly well organized, and less impaired. Thought content: patient has passive but not active suicidal ideation. No homicidal ideation. No delusions reported or noted. The patient denied any auditory or visual hallucinations. Attention, concentration, and memory are somewhat impaired. He is alert and oriented to person and situation. Insight and judgment are improving, impulse control is improving. Vitals/I&O/Wt Last Vital Signs Temp 97.7 F 04/10/21 06:00 Pulse 88 04/10/21 06:00 Resp 16 04/10/21 06:00 BP 117/62 04/10/21 06:00 Pulse Ox 99 04/10/21 06:00 Weight last 48 hrs Weight 71.668 kg Data NPU : 04/08/21 09:35 04/08/21 09:35 A&P Assessment and plan (1) Major depressive disorder: Status: Acute (2) Hepatitis C: Status: Acute (3) Alcohol use disorder: Status: Acute (4) Mild benzodiazepine use disorder: Status: Acute (5) Altered mental status: Status: Resolved (6) Confusion: Status: Resolved Additional A&P Information This is a 60-year-old, white male, with a long history of mental health issues, trauma and addiction issues, who presented with depression, active addiction, and recent reported suicide attempt off of his medication, endorsing a willingness to restart his medication. He also had altered mental status and confusion when he was first admitted. This is cleared somewhat. Stopping some medicines may have been helpful. Being off of alcohol, benzodiazepines, and other drugs may also have been helpful. However it is not completely clear what was causing his confusional episodes. He has a history of neurosyphilis in the past, which has apparently been fully treated. RECOMMENDATION AND PLAN: (1) Confusion: He will have an outpatient neurology consultation with Dr. Alberto, after discharge. (2) Hepatitis C: Unknown if this has been treated in the past. Ammonia level is not elevated (3) Alcohol use disorder: (4) Major depressive disorder: The patient reports being depressed by the confusion he is experiencing. (5) History of neurosyphilis. Records reviewed and he appeared to get the appropriate treatment. Involuntary Hold Information 96 Hour Hold: 96 Hour Involuntary Admission: No Attestations NPU Medical Necessity Statement*: Inpatient hospitalization is medically necessary and the clinically appropriate intervention, at this time. He would have difficulty living on his own. We will monitor medications and make changes as indicated. Likely length of stay is 8 more days. At this point finding him a place where he could have what is going to be a longer convalescence appears necessary. There is a facility that has accepted him as of April 18, 2021. Coding Level of Care Code Acute Urgent Care Physician for [facility] Diagnoses Major depressive disorder F32.9 Hepatitis C B19.20 Alcohol use disorder Mild benzodiazepine use disorder F13.10 Altered mental status R41.82 Confusion R41.0
[2021-04-09] MEDS: trazodone 50 mg Tablet PO (21:53)
[2021-04-09] MEDS: hyDROXYzine 25 mg Capsule 50 MG PO (21:53)
[2021-04-09 22:00] VITALS: BP 131/75; PULSE 89; RESP 18; TEMP 36.7; O2SAT 97
--- NOTE | 2021-04-10 01:18 | PC.NURSE ---
Patient requested and received PRN Trazodone and Vistaril for sleep and anxiety at 2153. Medications have been effective. No further complaints at this time.
[2021-04-10 06:00] VITALS: BP 117/62; PULSE 88; RESP 16; TEMP 36.5; O2SAT 99
[2021-04-10] MEDS: multivitamin therapeutic Tablet 1 TAB PO (09:15)
[2021-04-10] MEDS: thiamine 100 mg Tablet PO (09:15)
[2021-04-10] MEDS: fluoxetine 20 mg Capsule PO (09:15)
[2021-04-10] MEDS: folic acid 1 mg Tablet PO (09:15)
--- NOTE | 2021-04-10 12:31 | P.PN_ITS ---
Subjective NPU Subjective: Interval history: The patient's tremor is one of his major sources of distress currently. He is able to eat finger food but cannot eat things such as soup. The OT is working on getting him a wrist weight to stabilize his hands. Now that he is in better shape cognitively, he is able to read books. He is enjoying reading a book about a race horse at present. He talked about some of the things that have happened in his family. When his mother signed some rights over to his sister, she kicked his older brother out of the house. His brother had been living there for 7 years and had helped take care of his parents. He says he has chosen to maintain a relationship with his sister, despite these actions. We also talked about his mother's report that she is taking Effexor and it is been helpful for her. Mental Status Exam MSE Comments: This is a well-nourished, well-developed, and fairly well groomed white male. Cooperative with exam. In continued mild distress. Fair eye contact. He has a substantial tremor in his upper extremities that make it hard for him to hold a book, hold eating utensils, etc. Speech was more regular rate and rhythm, at a low volume. Mood is sad; affect congruent. Thought process was fairly well organized, and less impaired. Thought content: patient has passive but not active suicidal ideation. No homicidal ideation. No delusions reported or noted. The patient denied any auditory or visual hallucinations. Attention, concentration, and memory are somewhat impaired. He is alert and oriented to person and situation. Insight and judgment are improving, impulse control is improving. Vitals/I&O/Wt Last Vital Signs Temp 97.7 F 04/10/21 06:00 Pulse 88 04/10/21 06:00 Resp 16 04/10/21 06:00 BP 117/62 04/10/21 06:00 Pulse Ox 99 04/10/21 06:00 Weight last 48 hrs Weight 71.668 kg Data NPU : 04/08/21 09:35 04/08/21 09:35 A&P Assessment and plan (1) Hepatitis C: Status: Acute (2) Confusion: Status: Resolved (3) Major depressive disorder: Status: Acute (4) Alcohol use disorder: Status: Acute (5) Mild benzodiazepine use disorder: Status: Acute (6) Altered mental status: Status: Resolved Additional A&P Information This is a 60-year-old, white male, with a long history of mental health issues, trauma and addiction issues, who presented with depression, active addiction, and recent reported suicide attempt off of his medication, endorsing a willingness to restart his medication. He also had altered mental status and confusion when he was first admitted. This is cleared somewhat. Stopping some medicines may have been helpful. Being off of alcohol, benzodiazepines, and other drugs may also have been helpful. However it is not completely clear what was causing his confusional episodes. He has a history of neurosyphilis in the past, which has apparently been fully treated. RECOMMENDATION AND PLAN: (1) Confusion: He will have an outpatient neurology consultation with Dr. Alberto, after discharge. (2) Hepatitis C: Unknown if this has been treated in the past. Ammonia level is not elevated (3) Alcohol use disorder: (4) Major depressive disorder: We will decrease Prozac from 20 mg to 10 mg daily. We will add Effexor XR 37.5 mg daily. Patient consents. (5) History of neurosyphilis. Records reviewed and he appeared to get the appropriate treatment. Involuntary Hold Information 96 Hour Hold: 96 Hour Involuntary Admission: No Attestations NPU Medical Necessity Statement*: Inpatient hospitalization is medically necessary and the clinically appropriate intervention, at this time. He would have difficulty living on his own. We will monitor medications and make changes as indicated. Likely length of stay is 8 more days. At this point finding him a place where he could have what is going to be a longer convalescence appears necessary. There is a facility that has accepted him as of April 18, 2021. 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
[2021-04-10 14:00] VITALS: BP 118/61; PULSE 99; RESP 16; TEMP 36.6; O2SAT 97
[2021-04-10] MEDS: venlafaxine ER (24HR) 37.5 mg Capsule PO (16:30)
[2021-04-10 20:30] VITALS: BP 108/69; PULSE 68; RESP 19; TEMP 37; O2SAT 98
[2021-04-10] MEDS: trazodone 50 mg Tablet PO (20:53)
[2021-04-10] MEDS: hyDROXYzine 25 mg Capsule 50 MG PO (20:53)
--- NOTE | 2021-04-10 22:05 | PC.NURSE ---
Upon assessment patient in hallway. patient is alert/oriented x3. Patient has good eye contact and appears relaxed. He does have tremors to bilateral hands. he denies any pain, rates depression 6, anxiety 6. Denies any SI/HI, hallucinations. Will continue to monitor and follow plan of care. Q 15 min safety checks per protocol.
[2021-04-11 06:00] VITALS: BP 107/62; PULSE 55; RESP 18; TEMP 36.7; O2SAT 95
[2021-04-11] MEDS: thiamine 100 mg Tablet PO (08:09)
[2021-04-11] MEDS: multivitamin therapeutic Tablet 1 TAB PO (08:09)
[2021-04-11] MEDS: venlafaxine ER (24HR) 37.5 mg Capsule PO (08:09)
[2021-04-11] MEDS: fluoxetine 10 mg Capsule PO (08:09)
[2021-04-11] MEDS: folic acid 1 mg Tablet PO (08:09)
[2021-04-11 14:00] VITALS: BP 135/86; PULSE 81; RESP 18; TEMP 36.7; O2SAT 97
--- NOTE | 2021-04-11 15:59 | PM.NPN ---
Subjective NPU Subjective: Interval history: I spoke with the patient about early events during his alcoholism. At one point he tried to hang himself from the shower curtain of a rehab facility. He feels like he has nothing to live for at this point. We talked about him needing to start over and reinvent himself a bit. The OT got him a wrist weight to stabilize his hands, along with fat handled eating utensils. She is going to work with him on strengthening his upper extremities, which will help with the tremor. No side effects on the new medication. Mental Status Exam MSE Comments: This is a well-nourished, well-developed, and fairly well groomed white male. Cooperative with exam. In continued mild distress. Fair eye contact. He has a substantial tremor in his upper extremities that make it hard for him to hold a book, hold eating utensils, etc. Speech was at a regular rate and rhythm, at a low volume. Mood is sad; affect congruent. Thought process was fairly well organized, and less impaired. Thought content: patient has passive but not active suicidal ideation. No homicidal ideation. No delusions reported or noted. The patient denied any auditory or visual hallucinations. Attention, concentration, and memory are somewhat impaired. He is alert and oriented to person and situation. Insight and judgment are improving, impulse control is improving. Vitals/I&O/Wt Last Vital Signs Temp 98.1 F 04/11/21 06:00 Pulse 55 L 04/11/21 06:00 Resp 18 04/11/21 06:00 BP 107/62 04/11/21 06:00 Pulse Ox 95 04/11/21 06:00 Weight last 48 hrs Weight 71.668 kg Data NPU : 04/08/21 09:35 04/08/21 09:35 A&P Assessment and plan (1) Hepatitis C: Status: Acute (2) Confusion: Status: Resolved (3) Major depressive disorder: Status: Acute (4) Alcohol use disorder: Status: Acute (5) Mild benzodiazepine use disorder: Status: Acute (6) Altered mental status: Status: Resolved Additional A&P Information This is a 60-year-old, white male, with a long history of mental health issues, trauma and addiction issues, who presented with depression, active addiction, and recent reported suicide attempt off of his medication, endorsing a willingness to restart his medication. He also had altered mental status and confusion when he was first admitted. This is cleared somewhat. Stopping some medicines may have been helpful. Being off of alcohol, benzodiazepines, and other drugs may also have been helpful. However it is not completely clear what was causing his confusional episodes. He has a history of neurosyphilis in the past, which has apparently been fully treated. RECOMMENDATION AND PLAN: (1) Confusion: He will have an outpatient neurology consultation with Dr. Alberto, after discharge. (2) Hepatitis C: Unknown if this has been treated in the past. Ammonia level is not elevated (3) Alcohol use disorder: (4) Major depressive disorder: We will decrease Prozac from 20 mg to 10 mg daily. We will add Effexor XR 37.5 mg daily. Patient consents. (5) History of neurosyphilis. Records reviewed and he appeared to get the appropriate treatment. Involuntary Hold Information 96 Hour Hold: 96 Hour Involuntary Admission: No Attestations NPU Medical Necessity Statement*: Inpatient hospitalization is medically necessary and the clinically appropriate intervention, at this time. He would have difficulty living on his own. We will monitor medications and make changes as indicated. Likely length of stay is 8 more days. At this point finding him a place where he could have what is going to be a longer convalescence appears necessary. There is a facility that has accepted him as of April 18, 2021. Coding Level of Care Code Acute Radiation Protection Specialist for [facility] Diagnoses Hepatitis C B19.20 Confusion R41.0 Major depressive disorder F32.9 Alcohol use disorder Mild benzodiazepine use disorder F13.10 Altered mental status R41.82
--- NOTE | 2021-04-11 19:25 | NPU.GN ---
[facility] Topic:Stress General Mood of Group: Patient refused to go to group today.
[2021-04-11 19:36] VITALS: BP 121/74; PULSE 70; RESP 18; TEMP 36.8; O2SAT 97
[2021-04-11] MEDS: trazodone 50 mg Tablet PO (20:52)
[2021-04-11] MEDS: quetiapine 100 mg Tablet 50 MG PO (20:52)
[2021-04-11] MEDS: hyDROXYzine 25 mg Capsule 50 MG PO (20:52)
--- NOTE | 2021-04-11 20:55 | PC.NURSE ---
pt requested all three sleep and anxiety meds. Vistaril 50mg po, trazodone 50mg and seroquel 50mg po given.
--- NOTE | 2021-04-11 22:00 | PC.NURSE ---
pt resting quietly at this time with both eyes closed.
--- NOTE | 2021-04-12 01:00 | PC.NURSE ---
Patient awake in room throughout evening, reading book. Upon approach, is appropriate with good interaction. Denies SI/HI or AVH. Did take PRN Vistaril and Trazondone at 2051 to good effect. Patient resting in bed with eyes closed at this time. No complaints voiced. No signs of distress noted.
[2021-04-12 06:00] VITALS: BP 116/61; PULSE 61; RESP 18; TEMP 36.8; O2SAT 96
[2021-04-12] MEDS: thiamine 100 mg Tablet PO (10:37)
[2021-04-12] MEDS: multivitamin therapeutic Tablet 1 TAB PO (10:37)
[2021-04-12] MEDS: folic acid 1 mg Tablet PO (10:37)
[2021-04-12] MEDS: fluoxetine 10 mg Capsule PO (10:37)
[2021-04-12] MEDS: venlafaxine ER (24HR) 37.5 mg Capsule PO (10:37)
[2021-04-12 13:18] VITALS: BP 91/48; PULSE 62; RESP 16; TEMP 36; O2SAT 97
--- NOTE | 2021-04-12 16:18 | NPU.GN ---
[facility] Topic:Marianne (Addiction) General Mood of Group: Patient refused Group, too tired.
--- NOTE | 2021-04-12 17:47 | P.PN_ITS ---
Subjective NPU Subjective: Interval history: I met with the patient while he was eating dinner. He was not using the wrist weights or special utensils that the OT had provided him. He said he would try them tomorrow. No medication side effects on the Effexor. Mental Status Exam MSE Comments: This is a well-nourished, well-developed, and fairly well groomed white male. Cooperative with exam. In continued mild distress. Fair eye contact. He has a substantial tremor in his upper extremities that make it hard for him to hold a book, hold eating utensils, etc. Speech was at a regular rate and rhythm, at a low volume. Mood is sad; affect congruent. Thought process was fairly well organized, and less impaired. Thought content: patient has passive but not active suicidal ideation. No homicidal ideation. No delusions reported or noted. The patient denied any auditory or visual hallucinations. Attention, concentration, and memory are somewhat impaired. He is alert and oriented to person and situation. Insight and judgment are improving, impulse control is improving. Vitals/I&O/Wt Last Vital Signs Temp 96.8 F L 04/12/21 13:18 Pulse 62 04/12/21 13:18 Resp 16 04/12/21 13:18 BP 91/48 04/12/21 13:18 Pulse Ox 97 04/12/21 13:18 Data NPU : 04/08/21 09:35 04/08/21 09:35 A&P Assessment and plan (1) Hepatitis C: Status: Acute (2) Confusion: Status: Resolved (3) Major depressive disorder: Status: Acute (4) Alcohol use disorder: Status: Acute (5) Mild benzodiazepine use disorder: Status: Acute (6) Altered mental status: Status: Resolved Additional A&P Information This is a 60-year-old, white male, with a long history of mental health issues, trauma and addiction issues, who presented with depression, active addiction, and recent reported suicide attempt off of his medication, endorsing a willingness to restart his medication. He also had altered mental status and confusion when he was first admitted. This is cleared somewhat. Stopping some medicines may have been helpful. Being off of alcohol, benzodiazepines, and oth er drugs may also have been helpful. However it is not completely clear what was causing his confusional episodes. He has a history of neurosyphilis in the past, which has apparently been fully treated. RECOMMENDATION AND PLAN: (1) Confusion: He will have an outpatient neurology consultation with Dr. Alberto, after discharge. (2) Hepatitis C: Unknown if this has been treated in the past. Ammonia level is not elevated (3) Alcohol use disorder: (4) Major depressive disorder: We will decrease Prozac from 20 mg to 10 mg daily. We will increase Effexor XR to 75 mg daily tomorrow, 04/13/2021. (5) History of neurosyphilis. Records reviewed and he appeared to get the appropriate treatment. Involuntary Hold Information 96 Hour Hold: 96 Hour Involuntary Admission: No Attestations NPU Medical Necessity Statement*: Inpatient hospitalization is medically necessary and the clinically appropriate intervention, at this time. He would have difficulty living on his own. We will monitor medications and make changes as indicated. Likely length of stay is 8 more days. At this point finding him a place where he could have what is going to be a longer convalescence appears necessary. There is a facility that has accepted him as of April 18, 2021. Coding Level of Care Code Acute Cotton Machine Operator for [facility] Fwd Diagnoses Hepatitis C B19.20 Confusion R41.0 Major depressive disorder F32.9 Alcohol use disorder Mild benzodiazepine use disorder F13.10 Altered mental status R41.82
[2021-04-12 20:03] VITALS: BP 134/79; PULSE 74; RESP 16; TEMP 37.1; O2SAT 97
[2021-04-12] MEDS: trazodone 50 mg Tablet PO (20:36)
[2021-04-12] MEDS: hyDROXYzine 25 mg Capsule 50 MG PO (20:36)
[2021-04-13 06:00] VITALS: BP 117/67; PULSE 83; RESP 16; TEMP 36.6; O2SAT 97
[2021-04-13] MEDS: fluoxetine 10 mg Capsule PO (09:51)
[2021-04-13] MEDS: folic acid 1 mg Tablet PO (09:51)
[2021-04-13] MEDS: venlafaxine ER (24HR) 75 mg Capsule PO (09:51)
[2021-04-13] MEDS: multivitamin therapeutic Tablet 1 TAB PO (09:51)
[2021-04-13] MEDS: thiamine 100 mg Tablet PO (09:51)
--- NOTE | 2021-04-13 11:21 | NPU.GN ---
[facility] Topic:Stress Map General Mood of Group: Ede did not attend group today as he has the tremors.
[2021-04-13 12:58] VITALS: BP 130/80; PULSE 94; RESP 17; TEMP 36.3; O2SAT 94
--- NOTE | 2021-04-13 17:34 | PM.NPN ---
Subjective NPU Subjective: Interval history: The patient is discouraged and has passive suicidal ideation. He says, I don't know what use it is being around. He is irritable and hasn't participated in activities and hasn't tried any coping skills to help himself. He now says that he was on propranolol 40 mg twice daily, and unknown dose of Topamax, and Gabapentin, all for his essential tremor. he gave consent to restart the propranolol. He denies side effects from the Effexor XR, which is now at 75 mg daily. No benefit noted yet. Mental Status Exam MSE Comments: This is a well-nourished, well-developed, and fairly well groomed white male. Cooperative with exam. In continued mild distress. Fair eye contact. He has a substantial tremor in his upper extremities that make it hard for him to hold a book, hold eating utensils, etc. Speech was at a regular rate and rhythm, at a low volume. Mood is sad and irritable; affect congruent. Thought process was fairly well organized, and less impaired. Thought content: patient has passive but not active suicidal ideation. No homicidal ideation. No delusions reported or noted. The patient denied any auditory or visual hallucinations. Attention, concentration, and memory are somewhat impaired. He is alert and oriented to person and situation. Insight and judgment are improving, impulse control is improving. Vitals/I&O/Wt Last Vital Signs Temp 97.4 F L 04/13/21 12:58 Pulse 94 04/13/21 12:58 Resp 17 04/13/21 12:58 BP 130/80 04/13/21 12:58 Pulse Ox 94 04/13/21 12:58 Data NPU : 04/08/21 09:35 04/08/21 09:35 A&P Assessment and plan (1) Major depressive disorder: Status: Acute (2) Hepatitis C: Status: Acute (3) Confusion: Status: Resolved (4) Alcohol use disorder: Status: Acute (5) Mild benzodiazepine use disorder: Status: Acute (6) Altered mental status: Status: Resolved Additional A&P Information This is a 60-year-old, white male, with a long history of mental health issues, trauma and addiction issues, who presented with depression, active addiction, and recent reported suicide attempt off of his medication, endorsing a willingness to restart his medication. He also had altered mental status and confusion when he was first admitted. This is cleared somewhat. Stopping some medicines may have been helpful. Being off of alcohol, benzodiazepines, and other drugs may also have been helpful. However it is not completely clear what was causing his confusional episodes. He has a history of neurosyphilis in the past, which has apparently been fully treated. RECOMMENDATION AND PLAN: (1) Major depressive disorder: We will decrease Prozac from 20 mg to 10 mg daily. We will increase Effexor XR to 75 mg daily, 04/13/2021. No side effects (2) Essential tremor: this causes him moderate functional limitation and significant anxiety and embarrassment. Will start Propranolol at 20 mg twice daily. (3) Alcohol use disorder: no cravings at present. (4) Confusion: He will have an outpatient neurology consultation with Dr. Alberto, after discharge. (5) History of neurosyphilis. Records reviewed and he appeared to get the appropriate treatment. (6) Hepatitis C: Unknown if this has been treated in the past. Ammonia level is not elevated Involuntary Hold Information 96 Hour Hold: 96 Hour Involuntary Admission: No Attestations NPU Medical Necessity Statement*: Inpatient hospitalization is medically necessary and the clinically appropriate intervention, at this time. He would have difficulty living on his own. We will monitor medications and make changes as indicated. Likely length of stay is 5 more days. At this point finding him a place where he could have what is going to be a longer convalescence appears necessary. There is a facility that has accepted him as of April 18, 2021. 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
[2021-04-13] MEDS: propranolol 20 mg Tablet PO (18:01)
[2021-04-13 19:40] VITALS: BP 154/85; PULSE 79; RESP 21; TEMP 36.5; O2SAT 93
[2021-04-13] MEDS: hyDROXYzine 25 mg Capsule 50 MG PO (20:04)
[2021-04-13] MEDS: trazodone 50 mg Tablet PO (20:05)
--- NOTE | 2021-04-14 04:28 | PC.NURSE ---
Patient calm and cooperative at start of shift. Denied any SI/HI, AVH. Continues to have significant tremors noted. Continues to endorse mild anxiety and depression. Took PRN Trazodone and Vistaril to good effect. Has been in bed resting with eyes closed throughout night. No complaints voiced. No signs of distress noted.
[2021-04-14 06:00] VITALS: BP 106/66; PULSE 64; RESP 19; TEMP 37; O2SAT 97
[2021-04-14] MEDS: venlafaxine ER (24HR) 75 mg Capsule PO (09:18)
[2021-04-14] MEDS: fluoxetine 10 mg Capsule PO (09:18)
[2021-04-14] MEDS: folic acid 1 mg Tablet PO (09:18)
[2021-04-14] MEDS: multivitamin therapeutic Tablet 1 TAB PO (09:18)
[2021-04-14] MEDS: propranolol 20 mg Tablet PO ×2 (09:18→18:21)
[2021-04-14] MEDS: thiamine 100 mg Tablet PO (09:18)
--- NOTE | 2021-04-14 11:52 | NPU.GN ---
[facility] Topic:My Favorite Things General Mood of Group: Ede did not attend group as he wanted to sleep.
[2021-04-14 13:54] VITALS: BP 153/81; PULSE 99; RESP 17; TEMP 36.9; O2SAT 96
[2021-04-14 13:55] VITALS: BP 149/51; PULSE 65; RESP 17; TEMP 36.3; O2SAT 97
--- NOTE | 2021-04-14 14:38 | P.PN_ITS ---
Subjective NPU Subjective: Interval history: I spoke with the patient about a call I got from [facility]. They are concerned that he may not meet criteria for their program. We discussed other options and he would like us to continue to look for other placements. This is somewhat discouraging to him. Mental Status Exam MSE Comments: This is a well-nourished, well-developed, and fairly well groomed white male. Cooperative with exam. In continued mild distress. Fair eye contact. He has a substantial tremor in his upper extremities that make it hard for him to hold a book, hold eating utensils, etc. Speech was at a regular rate and rhythm, at a low volume. Mood is sad and irritable; affect congruent. Thought process was fairly well organized, and less impaired. Thought content: patient has passive but not active suicidal ideation. No homicidal ideation. No delusions reported or noted. The patient denied any auditory or visual hallucinations. Attention, concentration, and memory are somewhat impaired. He is alert and oriented to person and situation. Insight and judgment are impro ving, impulse control is improving. Vitals/I&O/Wt Last Vital Signs Temp 98.6 F 04/14/21 06:00 Pulse 64 04/14/21 06:00 Resp 19 H 04/14/21 06:00 BP 106/66 04/14/21 06:00 Pulse Ox 97 04/14/21 06:00 Data NPU : 04/08/21 09:35 04/08/21 09:35 A&P Assessment and plan (1) Major depressive disorder: Status: Acute (2) Altered mental status: Status: Resolved (3) Confusion: Status: Resolved (4) Hepatitis C: Status: Acute (5) Alcohol use disorder: Status: Acute (6) Mild benzodiazepine use disorder: Status: Acute Additional A&P Information This is a 60-year-old, white male, with a long history of mental health issues, trauma and addiction issues, who presented with depression, active addiction, and recent reported suicide attempt off of his medication, endorsing a willingness to restart his medication. He also had altered mental status and confusion when he was first admitted. This is cleared somewhat. Stopping some medicines may have been helpful. Being off of alcohol, benzodiazepines, and other drugs may also have been helpful. However it is not completely clear what was causing his confusional episodes. He has a history of neurosyphilis in the past, which has apparently been fully treated. RECOMMENDATION AND PLAN: (1) Major depressive disorder: We decreased Prozac from 20 mg to 10 mg daily. We increased Effexor XR to 75 mg daily, 04/13/2021. No side effects (2) Essential tremor: this causes him moderate functional limitation and significant anxiety and embarrassment. We started Propranolol at 20 mg twice daily. No dizziness. (3) Alcohol use disorder: no cravings at present. (4) Confusion: He will have an outpatient neurology consultation with Dr. Alberto, after discharge. (5) History of neurosyphilis. Records reviewed and he appeared to get the appropriate treatment. (6) Hepatitis C: Unknown if this has been treated in the past. Ammonia level is not elevated Involuntary Hold Information 96 Hour Hold: 96 Hour Involuntary Admission: No Attestations NPU Medical Necessity Statement*: Inpatient hospitalization is medically necessary and the clinically appropriate intervention, at this time. He would have difficulty living on his own. We will monitor medications and make changes as indicated. Likely length of stay is 4 more days. At this point finding him a place where he could have what is going to be a longer convalescence appears necessary. There is a facility that has accepted him as of April 18, 2021. Coding Level of Care Code Acute Ground Support Equipment Assembler for Su Sweet Diagnoses Major depressive disorder F32.9 Altered mental status R41.82 Confusion R41.0 Hepatitis C B19.20 Alcohol use disorder Mild benzodiazepine use disorder F13.10
--- NOTE | 2021-04-14 20:00 | PC.NURSE ---
Upon assessment patient lying in his bed reading a book. Patient has good eye contact and is pleasant. He is alert/oriented x4. He rates depression 6, Anxiety 6, Denies any pain, SI/HI, hallucinations. He did not attend group today. He did request medication for sleep tonight. Will continue to monitor and follow plan of care. Q 15 min safety checks per protocol.
[2021-04-14] MEDS: hyDROXYzine 25 mg Capsule 50 MG PO (20:41)
[2021-04-14] MEDS: trazodone 50 mg Tablet PO (20:41)
[2021-04-14 21:30] VITALS: BP 132/80; PULSE 64; RESP 17; TEMP 36.6; O2SAT 99
[2021-04-15 06:00] VITALS: BP 118/86; PULSE 56; RESP 16; TEMP 36.5; O2SAT 98
[2021-04-15] MEDS: venlafaxine ER (24HR) 75 mg Capsule PO (09:36)
[2021-04-15] MEDS: multivitamin therapeutic Tablet 1 TAB PO (09:36)
[2021-04-15] MEDS: propranolol 20 mg Tablet PO ×2 (09:36→17:24)
[2021-04-15] MEDS: fluoxetine 10 mg Capsule PO (09:36)
[2021-04-15] MEDS: thiamine 100 mg Tablet PO (09:36)
[2021-04-15] MEDS: folic acid 1 mg Tablet PO (09:36)
--- NOTE | 2021-04-15 12:06 | NPU.GN ---
[facility] Topic:Bindu General Mood of Group: Ede did not attend group this morning. He wanted to sleep.
[2021-04-15 13:42] VITALS: BP 113/68; PULSE 66; RESP 17; TEMP 36.3; O2SAT 98
--- NOTE | 2021-04-15 18:45 | W.PM.NPUPNS ---
Subjective NPU Subjective: Interval history: The patient says he is doing fairly well today. Mood is fairly good. No suicidal ideation. He confirms that he has not required any support to perform activities of daily living. No medication side effects on the propranolol or Effexor. Mental Status Exam MSE Comments: This is a well-nourished, well-developed, and fairly well groomed white male. Cooperative with exam. In continued mild distress. Fair eye contact. He has a substantial tremor in his upper extremities that make it hard for him to hold a book, hold eating utensils, etc. Speech was at a regular rate and rhythm, at a low volume. Mood is sad and irritable; affect congruent. Thought process was fairly well organized, and less impaired. Thought content: patient has passive but not active suicidal ideation. No homicidal ideation. No delusions reported or noted. The patient denied any auditory or visual hallucinations. Attention, concentration, and memory are somewhat impaired. He is alert and oriented to person and situation. Insight and judgment are improving, impulse control is improving. Vitals/I&O/Wt Last Vital Signs Temp 97.4 F L 04/15/21 13:42 Pulse 66 04/15/21 13:42 Resp 17 04/15/21 13:42 BP 113/68 04/15/21 13:42 Pulse Ox 98 04/15/21 13:42 Data NPU : 04/08/21 09:35 04/08/21 09:35 A&P Assessment and plan (1) Major depressive disorder: Status: Acute (2) Hepatitis C: Status: Acute (3) Alcohol use disorder: Status: Acute (4) Mild benzodiazepine use disorder: Status: Acute Additional A&P Information This is a 60-year-old, white male, with a long history of mental health issues, trauma and addiction issues, who presented with depression, active addiction, and recent reported suicide attempt off of his medication, endorsing a willingness to restart his medication. He also had altered mental status and confusion when he was first admitted. This is cleared somewhat. Stopping some medicines may have been helpful. Being off of alcohol, benzodiazepines, and other drugs may also have been helpful. However it is not completely clear what was causing his confusional episodes. He has a history of neurosyphilis in the past, which has apparently been fully treated. RECOMMENDATION AND PLAN: (1) Major depressive disorder: We decreased Prozac from 20 mg to 10 mg daily. We increased Effexor XR to 75 mg daily, 04/13/2021. No side effects (2) Essential tremor: this causes him moderate functional limitation and significant anxiety and embarrassment. We started Propranolol at 20 mg twice daily. No dizziness. (3) Alcohol use disorder: no cravings at present. (4) Confusion: He will have an outpatient neurology consultation with Dr. Alberto, after discharge. (5) History of neurosyphilis. Records reviewed and he appeared to get the appropriate treatment. (6) Hepatitis C: Unknown if this has been treated in the past. Ammonia level is not elevated Involuntary Hold Information 96 Hour Hold: 96 Hour Involuntary Admission: No Attestations NPU Medical Necessity Statement*: Inpatient hospitalization is medically necessary and the clinically appropriate intervention, at this time. He would have difficulty living on his own. We will monitor medications and make changes as indicated. Likely length of stay is again up in the air. The place that had excepted him previously, indicated later in the day that she has learned from her commercial lease administrator that he will not meet their criteria. Social work as resumed their search for placement. Coding Level of Care Code Acute Metal Patternmaker Apprentice for Su Hummeld Diagnoses Major depressive disorder F32.9 Hepatitis C B19.20 Alcohol use disorder Mild benzodiazepine use disorder F13.10
[2021-04-15 20:18] VITALS: BP 124/80; PULSE 59; RESP 17; TEMP 36.6; O2SAT 98
[2021-04-15] MEDS: hyDROXYzine 25 mg Capsule 50 MG PO (20:35)
[2021-04-15] MEDS: trazodone 50 mg Tablet PO (20:35)
[2021-04-16 06:00] VITALS: BP 112/72; PULSE 64; RESP 16; TEMP 36.6; O2SAT 98
[2021-04-16] MEDS: venlafaxine ER (24HR) 75 mg Capsule PO (08:46)
[2021-04-16] MEDS: thiamine 100 mg Tablet PO (08:46)
[2021-04-16] MEDS: folic acid 1 mg Tablet PO (08:46)
[2021-04-16] MEDS: multivitamin therapeutic Tablet 1 TAB PO (08:46)
[2021-04-16] MEDS: propranolol 20 mg Tablet PO (08:46)
[2021-04-16] MEDS: fluoxetine 10 mg Capsule PO (08:46)
[2021-04-16 14:00] VITALS: BP 123/72; PULSE 58; RESP 17; TEMP 36.3; O2SAT 99
--- NOTE | 2021-04-16 14:33 | W.PM.NPUPNS ---
Subjective NPU Subjective: Interval history: Unfortunately, the placement that we had planned on the patient transferring to, let us know that they would not be able to take him. They had said for a couple of weeks that they could take him. However, because he has a history of suicide attempt, they are not allowed to accept him. I informed the patient that indeed the facility we were planning for him to go to has change their mind and cannot take him. He says this is very frustrating and it is hard to keep up his hope. I empathized with his situation. No suicidal ideation. I said I would increase the dose of the propranolol. He agreed. No medication side effects on the propranolol or Effexor. Mental Status Exam MSE Comments: This is a well-nourished, well-developed, and fairly well groomed white male. Cooperative with exam. In continued mild distress. Fair eye contact. He has a substantial tremor in his upper extremities that make it hard for him to hold a book, hold eating utensils, etc. Speech was at a regular rate and rhythm, at a low volume. Mood is sad and frustrated; affect congruent. Thought process was fairly well organized, and less impaired. Thought content: No suicidal or homicidal ideation. No delusions reported or noted. The patient denied any auditory or visual hallucinations. Attention, concentration, and memory are somewhat impaired. He is alert and oriented to person and situation. Insight and judgment are improving, impulse control is improving. Vitals/I&O/Wt Last Vital Signs Temp 97.4 F L 04/16/21 14:00 Pulse 58 L 04/16/21 14:00 Resp 17 04/16/21 14:00 BP 123/72 04/16/21 14:00 Pulse Ox 99 04/16/21 14:00 Data NPU : 04/08/21 09:35 04/08/21 09:35 A&P Assessment and plan (1) Hepatitis C: Status: Acute (2) Major depressive disorder: Status: Acute (3) Alcohol use disorder: Status: Acute (4) Mild benzodiazepine use disorder: Status: Acute Additional A&P Information This is a 60-year-old, white male, with a long history of mental health issues, trauma and addiction issues, who presented with depression, active addiction, and recent reported suicide attempt off of his medication, endorsing a willingness to restart his medication. He also had altered mental status and confusion when he was first admitted. This is cleared somewhat. Stopping some medicines may have been helpful. Being off of alcohol, benzodiazepines, and other drugs may also have been helpful. However it is not completely clear what was causing his confusional episodes. He has a history of neurosyphilis in the past, which has apparently been fully treated. RECOMMENDATION AND PLAN: (1) Major depressive disorder: We decreased Prozac from 20 mg to 10 mg daily. We increased Effexor XR to 75 mg daily, 04/13/2021. No side effects (2) Essential tremor: this causes him moderate functional limitation and significant anxiety and embarrassment. We increased propranolol to 40 mg twice daily. No dizziness. He says he has taken Topamax and gabapentin along with the propranolol for tremor in the past. (3) Alcohol use disorder: no cravings at present. (4) Confusion: Mostly resolved. He will have an outpatient neurology consultation with Dr. Alberto, after discharge. (5) History of neurosyphilis. Records reviewed and he appeared to get the appropriate treatment. (6) Hepatitis C: Unknown if this has been treated in the past. Ammonia level is not elevated. (7) Disposition: We are currently looking for a placement which will accept the patient, be able to meet his needs, and accept his Medicaid. The placement we thought would take him, just let us know yesterday that they could not take him. Involuntary Hold Information 96 Hour Hold: 96 Hour Involuntary Admission: No Attestations NPU Medical Necessity Statement*: Inpatient hospitalization is medically necessary and the clinically appropriate intervention, at this time. He would have difficulty living on his own. We will monitor medications and make changes as indicated. Likely length of stay is again up in the air. The place that had excepted him previously, indicated later in the day that she has learned from her [employer]ix system administrator that he will not meet their criteria. Social work as resumed their search for placement. Coding Level of Care Code Acute Production Line Manager for Su Hummeld Diagnoses Hepatitis C B19.20 Major depressive disorder F32.9 Alcohol use disorder Mild benzodiazepine use disorder F13.10
[2021-04-16] MEDS: propranolol 20 mg Tablet 40 MG PO (18:20)
[2021-04-16] MEDS: hyDROXYzine 25 mg Capsule 50 MG PO (20:09)
[2021-04-16] MEDS: trazodone 50 mg Tablet PO (20:09)
[2021-04-16 21:11] VITALS: BP 132/74; PULSE 88; RESP 16; TEMP 36.5; O2SAT 97
[2021-04-17 06:00] VITALS: RESP 15; BMI 26.2
[2021-04-17] MEDS: thiamine 100 mg Tablet PO (09:52)
[2021-04-17] MEDS: propranolol 20 mg Tablet 40 MG PO ×2 (09:52→18:49)
[2021-04-17] MEDS: venlafaxine ER (24HR) 75 mg Capsule PO (09:52)
[2021-04-17] MEDS: fluoxetine 10 mg Capsule PO (09:52)
[2021-04-17] MEDS: multivitamin therapeutic Tablet 1 TAB PO (09:53)
[2021-04-17] MEDS: folic acid 1 mg Tablet PO (09:53)
--- NOTE | 2021-04-17 12:58 | W.PM.NPUPNS ---
Subjective NPU Subjective: Interval history: Patient presents today reporting that he did get bad news yesterday but is feeling better today and hopeful that he is going to get good news now that his Medicaid should be right. He reports that the changes that Dr. Plascencia made for likely been effective and he is feeling a little better. Mental Status Exam MSE Comments: This is a well-nourished, well-developed, white male in hospital scrubs with improved grooming and eye contact. No abnormal movements except for some tremulousness and shakiness. Cooperative with exam in no acute distress. Speech was at a regular rate and rhythm, at more normal volume. Mood is feeling better I think; affect congruent. Thought process was fairly well organized. Thought content: No suicidal or homicidal ideation. No delusions reported or noted. The patient denied any auditory or visual hallucinations. Attention, concentration, and memory are improving. He is alert and oriented x 3. Insight and judgment are improving, impulse control is improving. Vitals/I&O/Wt Last Vital Signs Temp 97.7 F 04/16/21 21:11 Pulse 88 04/16/21 21:11 Resp 15 04/17/21 06:00 BP 132/74 04/16/21 21:11 Pulse Ox 97 04/16/21 21:11 Weight last 48 hrs Weight 71.668 kg Data NPU : 04/08/21 09:35 04/08/21 09:35 A&P Additional A&P Information (1) Hepatitis C: (2) Major depressive disorder: (3) Alcohol use disorder: (4) Mild benzodiazepine use disorder: Additional A&P Information This is a 60-year-old, white male, with a long history of mental health issues, trauma and addiction issues, who presented with depression, active addiction, and recent reported suicide attempt off of his medication, endorsing a willingness to restart his medication. He also had altered mental status and confusion when he was first admitted. This is cleared somewhat. Stopping some medicines may have been helpful. Being off of alcohol, benzodiazepines, and other drugs may also have been helpful. However it is not completely clear what was causing his confusional episodes. He has a history of neurosyphilis in the past, which has apparently been fully treated. RECOMMENDATION AND PLAN: (1) Major depressive disorder: We decreased Prozac from 20 mg to 10 mg daily. We increased Effexor XR to 75 mg daily, 04/13/2021. No side effects (2) Essential tremor: this causes him moderate functional limitation and significant anxiety and embarrassment. We increased propranolol to 40 mg twice daily. No dizziness. He says he has taken Topamax and gabapentin along with the propranolol for tremor in the past. (3) Alcohol use disorder: no cravings at present. (4) Confusion: Mostly resolved. He will have an outpatient neurology consultation with Dr. Alberto, after discharge. (5) History of neurosyphilis. Records reviewed and he appeared to get the appropriate treatment. (6) Hepatitis C: Unknown if this has been treated in the past. Ammonia level is not elevated. (7) Disposition: We are currently looking for a placement which will accept the patient, be able to meet his needs, and accept his Medicaid. The placement we thought would take him, just let us know day before yesterday that they could not take him. Involuntary Hold Information 96 Hour Hold: 96 Hour Involuntary Admission: No Attestations NPU Medical Necessity Statement*: Inpatient hospitalization is medically necessary and the clinically appropriate intervention, at this time. He would have difficulty living on his own. We will monitor medications and make changes as indicated. Likely length of stay is again up in the air. The place that had excepted him previously, indicated later in the day that she has learned from her help desk administrator that he will not meet their criteria. Social work has resumed their search for placement. Coding Level of Care Code Acute Pretzel Twisting Machine Operator for Su Sweet
[2021-04-17 14:00] VITALS: BP 120/77; PULSE 66; RESP 17; TEMP 36.8; O2SAT 95
[2021-04-17 19:54] VITALS: BP 117/70; PULSE 62; RESP 18; TEMP 36.8; O2SAT 98
[2021-04-17] MEDS: trazodone 50 mg Tablet PO (20:57)
[2021-04-17] MEDS: hyDROXYzine 25 mg Capsule 50 MG PO (20:57)
--- NOTE | 2021-04-18 03:52 | PC.NURSE ---
Patient took PRN Trazodone and Vistaril at 2056 to good effect. Has been in bed resting with eyes closed throughout night.
[2021-04-18 06:00] VITALS: BP 106/71; PULSE 69; RESP 17; TEMP 36.5; O2SAT 96
[2021-04-18] MEDS: venlafaxine ER (24HR) 75 mg Capsule PO (09:19)
[2021-04-18] MEDS: thiamine 100 mg Tablet PO (09:19)
[2021-04-18] MEDS: multivitamin therapeutic Tablet 1 TAB PO (09:19)
[2021-04-18] MEDS: fluoxetine 10 mg Capsule PO (09:19)
[2021-04-18] MEDS: propranolol 20 mg Tablet 40 MG PO ×2 (09:19→20:59)
[2021-04-18] MEDS: folic acid 1 mg Tablet PO (09:19)
--- NOTE | 2021-04-18 10:54 | NPU.GN ---
[facility] Topic:Triggers and Coping Skills General Mood of Grou: Ede did not attend group this morning as he is too shaky.
[2021-04-18 14:00] VITALS: BP 111/63; PULSE 73; RESP 17; TEMP 36.5; O2SAT 97
--- NOTE | 2021-04-18 16:55 | P.NPUPN_ITS ---
Subjective NPU Subjective: Interval history: Patient presents today reporting that he is feeling better each day. He is well enough to be very aware of some of the other patients who are really struggling. We discussed his tremor and the fact that it runs in the family but just that his has never been this bad before. He reports that the resumption/increase of the propranolol has been helpful and he denies any issues with that at this time. He endorsed frustration that his discharge plan fell apart and he reports being open to what ever option comes available. Mental Status Exam MSE Comments: This is a well-nourished, well-developed, white male in hospital scrubs with improved grooming and eye contact. No abnormal movements except for some tremulousness and shakiness. Cooperative with exam in no acute distress. Speech was at a regular rate and rhythm, at more normal volume. Mood is feeling better; affect congruent. Thought process was organized. Thought content: No suicidal or homicidal ideation. No delusions reported or noted. The patient denied any auditory or visual hallucinations. Attention, concentration, and memory are improving. He is alert and oriented x 3. Insight and judgment are improving, impulse control is improving. Vitals/I&O/Wt Last Vital Signs Temp 97.7 F 04/18/21 14:00 Pulse 73 04/18/21 14:00 Resp 17 04/18/21 14:00 BP 111/63 04/18/21 14:00 Pulse Ox 97 04/18/21 14:00 Weight last 48 hrs Weight 71.668 kg Data NPU : 04/08/21 09:35 04/08/21 09:35 A&P Additional A&P Information (1) Hepatitis C: (2) Major depressive disorder: (3) Alcohol use disorder: (4) Mild benzodiazepine use disorder: Additional A&P Information This is a 60-year-old, white male, with a long history of mental health issues, trauma and addiction issues, who presented with depression, active addiction, and recent reported suicide attempt off of his medication, endorsing a willingness to restart his medication. He also had altered mental status and confusion when he was first admitted. This is cleared somewhat. Stopping some medicines may have been helpful. Being off of alcohol, benzodiazepines, and other drugs may also have been helpful. However it is not completely clear what was causing his confusional episodes. He has a history of neurosyphilis in the past, which has apparently been fully treated. RECOMMENDATION AND PLAN: (1) Major depressive disorder: We decreased Prozac from 20 mg to 10 mg daily. We increased Effexor XR to 75 mg daily, 04/13/2021. No side effects (2) Essential tremor: this causes him moderate functional limitation and significant anxiety and embarrassment. We increased propranolol to 40 mg twice daily. No dizziness. He says he has taken Topamax and gabapentin along with the propranolol for tremor in the past. (3) Alcohol use disorder: no cravings at present. (4) Confusion: Mostly resolved. He will have an outpatient neurology consultation with Dr. Alberto, after discharge. (5) History of neurosyphilis. Records reviewed and he appeared to get the appropriate treatment. (6) Hepatitis C: Unknown if this has been treated in the past. Ammonia level is not elevated. (7) Disposition: We are currently looking for a placement which will accept the patient, be able to meet his needs, and accept his Medicaid. The placement we thought would take him, just let us know day before yesterday that they could not take him. Involuntary Hold Information 96 Hour Hold: 96 Hour Involuntary Admission: No Attestations NPU Medical Necessity Statement*: Inpatient hospitalization is medically necessary and the clinically appropriate intervention, at this time. He would have difficulty living on his own. We will monitor medications and make changes as indicated. Likely length of stay is again up in the air. The place that had excepted him previously, indicated later in the day that she has learned from her senior oracle database administrator that he will not meet their criteria. Social work has resumed their search for placement. Coding Level of Care Code Acute Sack Cleaner for Su Sweet
[2021-04-18] MEDS: hyDROXYzine 25 mg Capsule 50 MG PO (20:59)
[2021-04-18] MEDS: trazodone 50 mg Tablet PO (20:59)
[2021-04-18 21:14] VITALS: BP 125/73; PULSE 81; RESP 19; TEMP 36.6; O2SAT 96
--- NOTE | 2021-04-19 05:10 | PC.NURSE ---
Has been calm, cooperative and compliant with care. Patient complained of mild anxiety. Took PRN Trazodone and Vistaril at 2058 wo good effect. Has been in bed resting with eyes closed since throughout night. No further complaints voiced. No distress noted.
[2021-04-19 05:49] VITALS: BP 107/70; PULSE 55; RESP 18; TEMP 36.7; O2SAT 95
[2021-04-19] MEDS: fluoxetine 10 mg Capsule PO (08:48)
[2021-04-19] MEDS: venlafaxine ER (24HR) 75 mg Capsule PO (08:48)
[2021-04-19] MEDS: folic acid 1 mg Tablet PO (08:48)
[2021-04-19] MEDS: multivitamin therapeutic Tablet 1 TAB PO (08:48)
[2021-04-19] MEDS: propranolol 20 mg Tablet 40 MG PO ×2 (08:48→21:14)
[2021-04-19] MEDS: thiamine 100 mg Tablet PO (08:48)
--- NOTE | 2021-04-19 11:34 | NPU.GN ---
[facility] Topic:Mental Health Crossword Puzzle/ Psych Education General Mood of Group: Ede did not attend group today as he has the shakes.
[2021-04-19 14:00] VITALS: BP 121/70; PULSE 54; RESP 16; TEMP 36.3; O2SAT 96
[2021-04-19 20:15] VITALS: BP 116/72; PULSE 59; RESP 14; O2SAT 96
[2021-04-19] MEDS: hyDROXYzine 25 mg Capsule 50 MG PO (21:14)
[2021-04-19] MEDS: trazodone 50 mg Tablet PO (21:14)
--- NOTE | 2021-04-19 21:14 | W.PM.NPUPNS ---
Subjective NPU Subjective: Interval history: Ede isaacents today continuing to show improvement in thought and returning to baseline on his tremors and shaking. He is open to different options as seen in treatment team explore possibilities though it has been challenging finding him a safe option for discharge. Mental Status Exam MSE Comments: This is a well-nourished, well-developed, white male in hospital scrubs with improved grooming and eye contact. No abnormal movements except for some tremulousness and shakiness. Cooperative with exam in no acute distress. Speech was at a regular rate and rhythm, at more normal volume. Mood is feeling better; affect congruent. Thought process was organized. Thought content: No suicidal or homicidal ideation. No delusions reported or noted. The patient denied any auditory or visual hallucinations. Attention, concentration, and memory are improving. He is alert and oriented x 3. Insight and judgment are improving, impulse control is improving. Vitals/I&O/Wt Last Vital Signs Temp 97.3 F L 04/19/21 14:00 Pulse 59 L 04/19/21 20:15 Resp 14 04/19/21 20:15 BP 116/72 04/19/21 20:15 Pulse Ox 96 04/19/21 20:15 Data NPU : 04/08/21 09:35 04/08/21 09:35 A&P Additional A&P Information (1) Hepatitis C: (2) Major depressive disorder: (3) Alcohol use disorder: (4) Mild benzodiazepine use disorder: Additional A&P Information This is a 60-year-old, white male, with a long history of mental health issues, trauma and addiction issues, who presented with depression, active addiction, and recent reported suicide attempt off of his medication, endorsing a willingness to restart his medication. He also had altered mental status and confusion when he was first admitted. This is cleared somewhat. Stopping some medicines may have been helpful. Being off of alcohol, benzodiazepines, and other drugs may also have been helpful. However it is not completely clear what was causing his confusional episodes. He has a history of neurosyphilis in the past, which has apparently been fully treated. RECOMMENDATION AND PLAN: (1) Major depressive disorder: We decreased Prozac from 20 mg to 10 mg daily. We increased Effexor XR to 75 mg daily, 04/13/2021. No side effects (2) Essential tremor: this causes him moderate functional limitation and significant anxiety and embarrassment. We increased propranolol to 40 mg twice daily. No dizziness. He says he has taken Topamax and gabapentin along with the propranolol for tremor in the past. (3) Alcohol use disorder: no cravings at present. (4) Confusion: Mostly resolved. He will have an outpatient neurology consultation with Dr. Alberto, after discharge. (5) History of neurosyphilis. Records reviewed and he appeared to get the appropriate treatment. (6) Hepatitis C: Unknown if this has been treated in the past. Ammonia level is not elevated. (7) Disposition: We are currently looking for a placement which will accept the patient, be able to meet his needs, and accept his Medicaid. The placement we thought would take him, just let us know day before yesterday that they could not take him. Involuntary Hold Information 96 Hour Hold: 96 Hour Involuntary Admission: No Attestations NPU Medical Necessity Statement*: Inpatient hospitalization is medically necessary and the clinically appropriate intervention, at this time. He would have difficulty living on his own. We will monitor medications and make changes as indicated. Likely length of stay is again up in the air. The place that had excepted him previously, indicated later in the day that she has learned from her distribution center administrator that he will not meet their criteria. Social work has resumed their search for placement. Coding Level of Care Code Acute Brine Process Operator for Su Sweet
--- NOTE | 2021-04-20 04:31 | PC.NURSE ---
Patient ap at start of shift. Calm, cooperative. Reports that he feels tremors have improved since being on Propranolol. Did take PRN Trazodone and Vistaril at 2113 for sleep aid and mild anxiety. Medications effective. Has been in bed resting with eyes closed throughout night. No further complaints voiced.
[2021-04-20 06:00] VITALS: BP 104/55; PULSE 52; RESP 15; O2SAT 94
[2021-04-20] MEDS: propranolol 20 mg Tablet 40 MG PO ×2 (08:16→21:10)
[2021-04-20] MEDS: thiamine 100 mg Tablet PO (08:16)
[2021-04-20] MEDS: fluoxetine 10 mg Capsule PO (08:17)
[2021-04-20] MEDS: multivitamin therapeutic Tablet 1 TAB PO (08:17)
[2021-04-20] MEDS: venlafaxine ER (24HR) 75 mg Capsule PO (08:17)
[2021-04-20] MEDS: folic acid 1 mg Tablet PO (08:17)
--- NOTE | 2021-04-20 11:10 | NPU.GN ---
[facility] Topic: Meditation Psych Education General Mood of Group: Ede did not attend group he wanted to sleep. Ede was more verbal and alert this morning with this radio script writer spoke with him. Ede did not seem to have the tremors as bad this morning and was awake and reading a book. Ede seems as the type that likes to isolate himself from others.
[2021-04-20 14:00] VITALS: BP 105/66; PULSE 53; RESP 18; TEMP 36; O2SAT 97
--- NOTE | 2021-04-20 15:43 | PC.NURSE ---
TC WITH CHEY HEARD OF [facility]. GAVE BRIEF HISTORY OF [facility]ES'S HOSPITALIZATION, CURRENT ACTIVITY AND AND THAT THIS SOURCING ENGINEER FELT HE WOULD HAVE A BETTER OUTCOME ON A REGULAR ADMISSION VS A [facility].
--- NOTE | 2021-04-20 18:43 | W.PM.NPUPNS ---
Subjective NPU Subjective: Interval history: Ede presents today reporting that he is feeling optimistic overall. He reports that he is like that whenever we can find it at this point he denies any new or pressing issues. He reports he is eating and sleeping better. He reports that his tremors are nearing baseline. He still endorses some depression but we are also reticent to make changes in his medication given how he was responding earlier to these medication changes. Mental Status Exam MSE Comments: This is a well-nourished, well-developed, white male in hospital scrubs with improved grooming and eye contact. No abnormal movements except for some tremulousness and shakiness. Cooperative with exam in no acute distress. Speech was at a regular rate and rhythm, at more normal volume. Mood is feeling all right; affect congruent. Thought process was organized. Thought content: No suicidal or homicidal ideation. No delusions reported or noted. The patient denied any auditory or visual hallucinations. Attention, concentration, and memory are improving. He is alert and oriented x 3. Insight and judgment are improving, impulse control is improving. Vitals/I&O/Wt Last Vital Signs Temp 98.6 F 04/20/21 20:31 Pulse 116 H 04/20/21 20:31 Resp 17 04/20/21 20:31 BP 118/69 04/20/21 20:31 Pulse Ox 96 04/20/21 20:31 Data NPU : 04/08/21 09:35 04/08/21 09:35 A&P Additional A&P Information (1) Hepatitis C: (2) Major depressive disorder: (3) Alcohol use disorder: (4) Mild benzodiazepine use disorder: Additional A&P Information This is a 60-year-old, white male, with a long history of mental health issues, trauma and addiction issues, who presented with depression, active addiction, and recent reported suicide attempt off of his medication, endorsing a willingness to restart his medication. He also had altered mental status and confusion when he was first admitted. This is cleared somewhat. Stopping some medicines may have been helpful. Being off of alcohol, benzodiazepines, and other drugs may also have been helpful. However it is not completely clear what was causing his confusional episodes. He has a history of neurosyphilis in the past, which has apparently been fully treated. RECOMMENDATION AND PLAN: (1) Major depressive disorder: We decreased Prozac from 20 mg to 10 mg daily. We increased Effexor XR to 75 mg daily, 04/13/2021. No side effects. We will increase Effexor XR by 37.5 mg tomorrow. (2) Essential tremor: this causes him moderate functional limitation and significant anxiety and embarrassment. We increased propranolol to 40 mg twice daily. No dizziness. He says he has taken Topamax and gabapentin along with the propranolol for tremor in the past. (3) Alcohol use disorder: no cravings at present. (4) Confusion: Mostly resolved. He will have an outpatient neurology consultation with Dr. Alberto, after discharge. (5) History of neurosyphilis. Records reviewed and he appeared to get the appropriate treatment. (6) Hepatitis C: Unknown if this has been treated in the past. Ammonia level is not elevated. (7) Disposition: We are currently looking for a placement which will accept the patient, be able to meet his needs, and accept his Medicaid. The placement we thought would take him, just let us know day before yesterday that they could not take him. Involuntary Hold Information 96 Hour Hold: 96 Hour Involuntary Admission: No Attestations NPU Medical Necessity Statement*: Inpatient hospitalization is medically necessary and the clinically appropriate intervention, at this time. He would have difficulty living on his own. We will monitor medications and make changes as indicated. Likely length of stay is again up in the air. The place that had excepted him previously, indicated later in the day that she has learned from her [employer] administrator that he will not meet their criteria. Social work has resumed their search for placement. Coding Level of Care Code Acute Alarm Security Or Surveillance Monitor for Su Sweet
[2021-04-20 20:31] VITALS: BP 118/69; PULSE 116; RESP 17; TEMP 37; O2SAT 96
[2021-04-20] MEDS: hyDROXYzine 25 mg Capsule 50 MG PO ×2 (21:10→21:11)
[2021-04-20] MEDS: OLANZapine 5 mg ODT PO (21:11)
[2021-04-20] MEDS: trazodone 50 mg Tablet PO (22:07)
--- NOTE | 2021-04-20 23:39 | PC.NURSE ---
Administered hydroxyzine 50mg PO for anxiety and zyprexa 5mg PO for agitation, trazodone 50mg PO for sleep per patient request. Medication effective, patient resting with eyes closed in bed with equal, nonlabored respirations
--- NOTE | 2021-04-21 03:58 | PC.NURSE ---
Patient calm and cooperative. Compliant with care. Denies SI/HI or AVH. Did become anxious about Trazodone not being available as one of his PRN medications this evening. Dr contacted and gave verbal order to resume. Patient took medication to good results. Has remained in bed resting with eyes closed most of shift. No complaints during night. No signs of distress noted.
[2021-04-21 06:00] VITALS: BP 115/65; PULSE 52; RESP 17; TEMP 36.8; O2SAT 95
[2021-04-21] MEDS: venlafaxine ER (24HR) 75 mg Capsule PO (09:39)
[2021-04-21] MEDS: folic acid 1 mg Tablet PO (09:39)
[2021-04-21] MEDS: propranolol 20 mg Tablet 40 MG PO (09:39)
[2021-04-21] MEDS: fluoxetine 10 mg Capsule PO (09:39)
[2021-04-21] MEDS: multivitamin therapeutic Tablet 1 TAB PO (09:39)
[2021-04-21] MEDS: thiamine 100 mg Tablet PO (09:39)
--- NOTE | 2021-04-21 11:56 | NPU.GN ---
[facility] Topic:Meditation/ Depression Phoebe General Mood of Group: Ede did not attend group today.
[2021-04-21 14:00] VITALS: BP 104/66; PULSE 54; RESP 18; TEMP 36.2; O2SAT 96
[2021-04-21] MEDS: venlafaxine ER (24HR) 37.5 mg Capsule PO (14:50)
--- NOTE | 2021-04-21 16:59 | P.NPUPN_ITS ---
Subjective NPU Subjective: Interval history: Patient presents today excited about the possibility of discharge today. All the paperwork went through and we were able to get acceptance. However the person in charge of giving the final authorization to have him sent over for intake at left and so discharge will be tomorrow morning. He still is very optimistic and was inquisitive about where the place was and the fact that he will have a broader ability to do things compare to here. He reports he feels like things are improving. We discussed the risk benefits and alternatives of increasing his Effexor XR by 37.5 mg and he understood and agreed to proceed as is documented in this note Mental Status Exam MSE Comments: This is a well-nourished, well-developed, white male in hospital scrubs with improved grooming and eye contact. No abnormal movements except for some tremulousness and shakiness. Cooperative with exam in no acute distress. Speech was at a regular rate and rhythm, at more normal volume. Mood is feeling happy about leaving; affect congruent. Thought process was organized. Thought content: No suicidal or homicidal ideation. No delusions reported or noted. The patient denied any auditory or visual hallucinations. Attention, concentration, and memory are improving. He is alert and oriented x 3. Insight and judgment are improving, impulse control is improving. Vitals/I&O/Wt Last Vital Signs Temp 98.2 F 04/21/21 21:12 Pulse 99 04/21/21 21:12 Resp 18 04/21/21 21:12 BP 130/70 04/21/21 21:12 Pulse Ox 95 04/21/21 21:12 Data NPU : 04/08/21 09:35 04/08/21 09:35 A&P Additional A&P Information (1) Hepatitis C: (2) Major depressive disorder: (3) Alcohol use disorder: (4) Mild benzodiazepine use disorder: Additional A&P Information This is a 60-year-old, white male, with a long history of mental health issues, trauma and addiction issues, who presented with depression, active addiction, and recent reported suicide attempt off of his medication, endorsing a willingness to restart his medication. He also had altered mental status and confusion when he was first admitted. This is cleared somewhat. Stopping some medicines may have been helpful. Being off of alcohol, benzodiazepines, and other drugs may also have been helpful. However it is not completely clear what was causing his confusional episodes. He has a history of neurosyphilis in the past, which has apparently been fully treated. RECOMMENDATION AND PLAN: (1) Major depressive disorder: We decreased Prozac from 20 mg to 10 mg daily. We increased Effexor XR to 112.5 mg daily, 04/21/2021. No side effects. (2) Essential tremor: this causes him moderate functional limitation and significant anxiety and embarrassment. We increased propranolol to 40 mg twice daily. No dizziness. He says he has taken Topamax and gabapentin along with the propranolol for tremor in the past. (3) Alcohol use disorder: no cravings at present. (4) Confusion: Mostly resolved. He will have an outpatient neurology consultation with Dr. Alberto, after discharge. (5) History of neurosyphilis. Records reviewed and he appeared to get the appropriate treatment. (6) Hepatitis C: Unknown if this has been treated in the past. Ammonia level is not elevated. (7) Disposition: He was accepted at [facility]. Discharge tomorrow. Involuntary Hold Information 96 Hour Hold: 96 Hour Involuntary Admission: No Attestations NPU Medical Necessity Statement*: Inpatient hospitalization is medically necessary and the clinically appropriate intervention, at this time. He would have difficulty living on his own. We will monitor medications and make changes as indicated. Plan for discharge in the morning. Coding Level of Care Code Acute L[employer] Kiln And Recausticizing Operator for Su Sweet
[2021-04-21] MEDS: trazodone 50 mg Tablet PO (19:54)
[2021-04-21] MEDS: hyDROXYzine 25 mg Capsule 50 MG PO (19:54)
[2021-04-21 21:12] VITALS: BP 130/70; PULSE 99; RESP 18; TEMP 36.8; O2SAT 95
[2021-04-22 06:00] VITALS: BP 121/64; PULSE 69; RESP 15; TEMP 36.5; O2SAT 97
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
[2021-04-22] MEDS: venlafaxine ER (24HR) 75 mg Capsule PO (08:42)
[2021-04-22] MEDS: multivitamin therapeutic Tablet 1 TAB PO (08:42)
[2021-04-22] MEDS: thiamine 100 mg Tablet PO (08:42)
[2021-04-22] MEDS: folic acid 1 mg Tablet PO (08:42)
[2021-04-22] MEDS: fluoxetine 10 mg Capsule PO (08:42)
[2021-04-22] MEDS: venlafaxine ER (24HR) 37.5 mg Capsule PO (08:42)
[2021-04-22] MEDS: propranolol 20 mg Tablet 40 MG PO (08:48)
[2021-04-22 09:27] VITALS: BP 121/64; PULSE 69; RESP 15; TEMP 36.5; O2SAT 97
== END 2021-04-22 12:50 | disposition home or self-care (01) | DRG 881 ==
PROVIDERS: Internal Medicine; Psychiatry & Neurology Child & Adolescent Psychiatry; Admitting Provider Psychiatry & Neurology Psychiatry; Visit Provider Psychiatry & Neurology Psychiatry
DX: F32.9 Major depressive disorder, single episode, unspecified (principal); R45.851 Suicidal ideations; F13.939 Sedative, hypnotic or anxiolytic use, unspecified with withdrawal, unspecified; F41.9 Anxiety disorder, unspecified; Z86.19 Personal history of other infectious and parasitic diseases; F10.10 Alcohol abuse, uncomplicated; R41.82 Altered mental status, unspecified; F17.210 Nicotine dependence, cigarettes, uncomplicated
CPT/HCPCS: 36415; 70450; 80048; 80053; 80306; 81001; 81003; 82140; 82607; 84443; 85025; 86140; 86592; 96372; 97150; 97165; J3411; Q0162

== ENCOUNTER → 2022-07-21 08:53 | Outpatient (BNVA) | payer MEDICAID, SELFPAY | PROVIDERS: PCP Internal Medicine; Visit Provider Surgery | DX: K21.9 Gastro-esophageal reflux disease without esophagitis (principal); K92.0 Hematemesis; Z86.010 Personal history of colon polyps; Z80.0 Family history of malignant neoplasm of digestive organs | CPT/HCPCS: 99204 ==

== ENCOUNTER 2022-08-24 05:39 | Day surgery (SDC) | payer MEDICAID, SELFPAY ==
[2022-08-22 09:06] VITALS: BMI 33.4
[2022-08-24 06:08] VITALS: BP 112/72; PULSE 66; RESP 18; TEMP 36.2; O2SAT 97
[2022-08-24] MEDS: sodium chloride 0.9% 1,000 ML 30 ML IV (06:12)
--- NOTE | 2022-08-24 06:52 | ANES.PREANE2 ---
Pre-Anesthetic Assessment Height/Weight: Height 1.65 m Weight 91.172 kg Temp Pulse Resp BP Pulse Ox O2 Del Method 97.2 F L 66 18 112/72 97 08/24/22 06:08 08/24/22 06:08 08/24/22 06:08 08/24/22 06:08 08/24/22 06:08 08/24/22 06:08 Preop Diagnosis: histoty of colon polyps Operation Date: 08/24/22 07:00 Proposed Procedures p 65668 EGD [id number] Colonoscopy,Z80.0,K92.0,z86.010, K21.9(Not Applicable) - Isac Nichols DO s Colonoscopy(Not Applicable) - Isac Nichols DO Familial anesthetic complications: none Was Beta Eugenio taken within 24 hours: Yes Was Clonidine taken within 24 hours: N/A Last intake: Intake Last Liquid Date 08/23/22 Last Solid Date 08/22/22 Social No alcohol (quit 2 years ago) and No tobacco (history quit 2 years ago) Exam alert, oriented x 3, clear to auscultation bilaterally and regular rate & rhythm Airway Submandibular: within normal limits Cervical ROM: within normal limits Mallampati: Class II Dentition: false and partials Pulmonary Chronic Obstructive Pulmonary Disease CV/HEM None reported None reported Hepatic Hepatitis (C) GI Gastroesophageal Reflux Disease (nexium controlled) Metabolic None reported Musc/skel Lower Back Pain Neuropsych Anxiety, Bipolar, Depression and Seizure (detoxing) Anesthetic Plan ASA status: 3 Anesthesia: MAC Risk of > 500 ml blood loss (7ml/kg in children): No Medications/Allergies Home Medications Medication Instructions Recorded Confirmed Last Taken Type fluoxetine 10 mg capsule 10 mg PO DAILY #30 caps 04/21/21 08/24/22 08/23/22 Rx folic acid 1 mg tablet 1 mg PO DAILY #30 tabs 04/21/21 08/24/22 08/23/22 Rx propranolol 20 mg tablet 40 mg PO 0900,2100 #30 tabs 04/21/21 08/24/22 08/24/22 Rx quetiapine 100 mg tablet 50 mg PO BEDTIME PRN Insomnia #30 04/21/21 08/24/22 08/23/22 Rx tabs thiamine mononitrate (vit B1) 100 100 mg PO DAILY #30 tabs 04/21/21 08/24/22 08/23/22 Rx mg tablet (Vitamin B-1 (mononitrate)) trazodone 50 mg tablet 50 mg PO BEDTIME PRN Sleep #30 tabs 04/21/21 08/24/22 08/23/22 Rx esomeprazole magnesium 40 mg 40 mg PO DAILY 07/21/22 08/24/22 08/23/22 History capsule,delayed release (Nexium) loperamide 2 mg capsule (Imodium 2 mg PO Q6H PRN Diarrhea 07/21/22 08/24/22 08/23/22 History A-D) naloxone 2 mg/2 mL syringe kit 2 mg IM Q2M PRN unknown 07/21/22 08/24/22 Unknown History Allergies Allergy/AdvReac Type Severity Reaction Status Date / Time acetaminophen [From Tylenol] Allergy ALGY-Anaphy Verified 08/24/22 06:06 laxis codeine Allergy ALGY-Anaphy Verified 08/24/22 06:06 laxis diphenhydramine Allergy Unknown Verified 08/24/22 06:06 [From Benadryl] Current Medications Generic Name Dose Route Start Last Admin Trade Name Freq PRN Reason Stop Dose Admin Sodium Chloride 1,000 mls @ 30 mls/hr 08/24/22 06:00 08/24/22 06:12 Sodium Chloride 0.9% IV 08/25/22 05:59 30 mls/hr .Q24H SHANNAN Administration PFSH Anesthesia Medical History (Updated 07/21/22 @ 10:01 by Isac Nichols DO) Alcohol use disorder COPD (chronic obstructive pulmonary disease) Drug use Family history of colon cancer GERD (gastroesophageal reflux disease) Hepatitis C History of colon polyps History of neurosyphilis Major depressive disorder Neurosyphilis Tobacco dependency Surgical History History of ankle surgery Right History of esophagogastroduodenoscopy (EGD) 20 yrs ago History of shoulder surgery History of surgery on left wrist Hx of appendectomy Family History Other Cancer Stroke Social History Smoking and tobacco status: former smoker Alcohol intake: former Data Anesthesia Cardiac Studies: No Data to Display
--- NOTE | 2022-08-24 06:52 | PM.HP ---
Providers/Chief Complaint Primary Care Provider: Maribel Cunningham MD Chief Complaint: Z80.0, K92.0, Z86.010 History of Present Illness Ede Maier is a 61 year old male here for EGd and colonoscopy Medications/Allergies Home Medications Medication Instructions Recorded Confirmed Last Taken Type fluoxetine 10 mg capsule 10 mg PO DAILY #30 caps 04/21/21 08/24/22 08/23/22 Rx folic acid 1 mg tablet 1 mg PO DAILY #30 tabs 04/21/21 08/24/22 08/23/22 Rx propranolol 20 mg tablet 40 mg PO 0900,2100 #30 tabs 04/21/21 08/24/22 08/24/22 Rx quetiapine 100 mg tablet 50 mg PO BEDTIME PRN Insomnia #30 04/21/21 08/24/22 08/23/22 Rx tabs thiamine mononitrate (vit B1) 100 100 mg PO DAILY #30 tabs 04/21/21 08/24/22 08/23/22 Rx mg tablet (Vitamin B-1 (mononitrate)) trazodone 50 mg tablet 50 mg PO BEDTIME PRN Sleep #30 tabs 04/21/21 08/24/22 08/23/22 Rx esomeprazole magnesium 40 mg 40 mg PO DAILY 07/21/22 08/24/22 08/23/22 History capsule,delayed release (Nexium) loperamide 2 mg capsule (Imodium 2 mg PO Q6H PRN Diarrhea 07/21/22 08/24/22 08/23/22 History A-D) naloxone 2 mg/2 mL syringe kit 2 mg IM Q2M PRN unknown 07/21/22 08/24/22 Unknown History Allergies Allergy/AdvReac Type Severity Reaction Status Date / Time acetaminophen [From Tylenol] Allergy ALGY-Anaphy Verified 08/24/22 06:06 laxis codeine Allergy ALGY-Anaphy Verified 08/24/22 06:06 laxis diphenhydramine Allergy Unknown Verified 08/24/22 06:06 [From Benadryl] PFSH Acute PFSH: Medical History (Updated 07/21/22 @ 10:01 by Isac Nichols DO) Alcohol use disorder COPD (chronic obstructive pulmonary disease) Drug use Family history of colon cancer GERD (gastroesophageal reflux disease) Hepatitis C History of colon polyps History of neurosyphilis Major depressive disorder Neurosyphilis Tobacco dependency Surgical History History of ankle surgery Right History of esophagogastroduodenoscopy (EGD) 20 yrs ago History of shoulder surgery History of surgery on left wrist Hx of appendectomy Family History Other Cancer Stroke Social History Smoking and tobacco status: former smoker Alcohol intake: former Vitals/I&O/Wt Last Vital Signs Temp 97.2 F L 08/24/22 06:08 Pulse 66 08/24/22 06:08 Resp 18 08/24/22 06:08 BP 112/72 08/24/22 06:08 Pulse Ox 97 08/24/22 06:08 O2 Del Method 08/24/22 06:08 Weight last 48 hrs Weight 201 lb A&P Assessment and plan (1) Family history of colon cancer: (2) GERD (gastroesophageal reflux disease): Plan EGD and Colonoscopy Attestations Medical Necessity Statement*: home Coding Level of Care Code Acute Code for Chg Fwd Diagnoses Family history of colon cancer Z80.0 GERD (gastroesophageal reflux disease) K21.9
[2022-08-24 07:59] VITALS: BP 110/65; PULSE 61; RESP 12; TEMP 36.1; O2SAT 94
[2022-08-24 08:10] VITALS: BP 109/64; PULSE 64; RESP 18; O2SAT 94
--- NOTE | 2022-08-24 14:04 | ANE.PACU2 ---
Inpatient post-anesthesia follow up: Airway intact: Yes Vital signs: Temperature 97.0 F Pulse Rate 64 Respiratory Rate 18 Blood Pressure 109/64 Pulse Oximetry 94 Oxygen Delivery Me thod Room Air Oxygen Flow Rate Fraction of Inspir ed Oxygen Hydration adequate: Yes Nausea and vomiting: No Pain level: 1 Mental status: Baseline
== END 2022-08-24 08:30 | disposition home or self-care (01) ==
PROVIDERS: PCP Internal Medicine; Visit Provider Surgery
PROC: 0DJ08ZZ Inspection of Upper Intestinal Tract, Via Natural or Artificial Opening Endoscopic (ICD-10-PCS; CPT 43235; principal; 2022-08-24 07:00)
PROC: 0DJD8ZZ Inspection of Lower Intestinal Tract, Via Natural or Artificial Opening Endoscopic (ICD-10-PCS; CPT 45378; 2022-08-24 07:00)
DX: Z12.11 Encounter for screening for malignant neoplasm of colon (principal); D12.2 Benign neoplasm of ascending colon; K29.50 Unspecified chronic gastritis without bleeding; K21.9 Gastro-esophageal reflux disease without esophagitis; J44.9 Chronic obstructive pulmonary disease, unspecified; Z86.010 Personal history of colon polyps; Z87.891 Personal history of nicotine dependence; Z80.0 Family history of malignant neoplasm of digestive organs
CPT/HCPCS: 43239; 45385; 88305; 88342; J2704; J7030

== ENCOUNTER → 2022-09-15 15:56 | Outpatient (BNVA) | payer MEDICAID, SELFPAY | PROVIDERS: PCP Internal Medicine; Visit Provider Surgery | DX: Z86.010 Personal history of colon polyps (principal); K29.70 Gastritis, unspecified, without bleeding; B96.81 Helicobacter pylori [H. pylori] as the cause of diseases classified elsewhere | CPT/HCPCS: 99024; 99212 ==

== ENCOUNTER → 2022-10-03 07:59 | Outpatient (BNVA) | payer MEDICAID, SELFPAY | PROVIDERS: PCP Internal Medicine; Referring Provider Dermatology; Visit Provider Orthopaedic Surgery | DX: M25.512 Pain in left shoulder (principal) | CPT/HCPCS: 73030; 99204 ==

== ENCOUNTER 2022-10-31 07:58 | Outpatient (CLI) | payer MEDICAID, SELFPAY ==
--- NOTE | 2022-10-31 | XR_ITS ---
WS: [id number] PROCEDURE: XR chest 2V* [id number] CLINICAL INFORMATION: MR SCREENING COMPARISON: None. FINDINGS: Surgical clips visualized in the LEFT upper quadrant projected over the inferior LEFT hepat ic lobe and spleen Heart: Normal cardiac silhouette. Lungs: Lungs are clear. No consolidation or pleural fluid. Bones: Mild thoracic kyphosis with mild chronic anterior wedging at the thoracolumbar junction. XR/XR chest 2V* [id number] IMPRESSION: Surgical clips visualized in the LEFT upper quadrant projected over the inferio r LEFT hepatic lobe and spleen. No other suspicious metallic foreign bodies.
--- NOTE | 2022-10-31 08:00 | MR_ITS ---
WS: [id number] EXAMINATION: MR shoulder LT wo con* [id number] ORDER DATE: 10/31/2022 8:16 AM COMPARISON: None. HISTORY: M25.519 - Pain in unspecified shoulder CONTRAST: None. TECHNIQUE: Axial T2 STAR, coronal proton density fat sat, sagittal T2 fat sat, sagittal proton densit y fat sat, axial proton density fat sat, coronal T2 fat sat, and coronal T1 performed. After contrast , axial T1 fat sat, coronal T1 fat sat, and sagittal T1 fat sat were performed. FINDINGS: Moderate degenerative arthritis at the AC joint. Mild downsloping of the acromion with slight subacro mial spurring. Mild edema at the AC joint. Mild narrowing of the subacromial space. Small amount of s ubacromial subdeltoid fluid. Small insertional tear distal supraspinatus measuring 5.1 mm. Chronic th inning of the supraspinatus. Normal infraspinatus. Normal teres minor. Normal subscapularis tendon. Normal biceps tendon in the bi cipital groove. Normal bone marrow signal in the humerus and glenoid. Mild degenerative fraying of th e glenoid labrum. zIMPRESSION: 1. Moderate degenerative arthritis AC joint with mild edema. Mild narrowing of the subacromial space . 2. 5 mm high-grade tear at the supraspinatus distal insertion. 3. Rotator cuff is otherwise intact. 4. Normal biceps in the bicipital groove. 5. Moderate degenerative narrowing of the glenohumeral joint. 6. No other acute findings.
== END 2022-10-31 07:59 | disposition home or self-care (01) ==
LOC: RAD 08:01
PROVIDERS: PCP Internal Medicine; Visit Provider Orthopaedic Surgery
DX: M75.102 Unspecified rotator cuff tear or rupture of left shoulder, not specified as traumatic (principal); M19.012 Primary osteoarthritis, left shoulder
CPT/HCPCS: 71046; 73221

== ENCOUNTER → 2022-12-26 08:55 | Outpatient (BNVA) | payer MEDICAID, SELFPAY | PROVIDERS: PCP Internal Medicine; Visit Provider Nurse Practitioner Family | DX: M75.102 Unspecified rotator cuff tear or rupture of left shoulder, not specified as traumatic (principal) | CPT/HCPCS: 99214 ==

== ENCOUNTER → 2023-01-03 10:26 | Outpatient (BNVA) | payer MEDICAID, SELFPAY | PROVIDERS: PCP Internal Medicine; Visit Provider Specialist | DX: M75.102 Unspecified rotator cuff tear or rupture of left shoulder, not specified as traumatic (principal) | CPT/HCPCS: 36415; 80053; 81001; 85025; 99214 ==

== ENCOUNTER 2023-01-15 08:23 | Day surgery (SDC) | payer MEDICAID, SELFPAY ==
[2023-01-12 10:06] VITALS: BMI 36.6
[2023-01-15] VITALS (10 sets, daily range): BP systolic 98–155; BP diastolic 56–93; PULSE 63–72; RESP 14–21; TEMP 36.1–36.6; O2SAT 92–97
[2023-01-15] MEDS: sodium chloride 0.9% 1,000 ML 30 ML IV (09:01)
[2023-01-15] MEDS: acetaminophen 1,000 MG/100 ML PIGGYBACK 400 MG IV (09:01)
[2023-01-15] MEDS: CELEcoxib 200 mg Capsule 400 MG PO (09:02)
[2023-01-15] MEDS: gabapentin 300 mg Capsule PO (09:02)
--- NOTE | 2023-01-15 09:59 | W.PM.OPSUD ---
Surgery/Procedure H&P Update DATE OF PROCEDURE: January 15, 2023 DATE H&P PERFORMED: 01/03/23 H&P UPDATE INFORMATION: I have reviewed H&P completed within last 30 days, I have examined patient prior to procedure, No changes to prior documentation and H&P is in [facility] EMR on date indicated PLANNED PROCEDURE: Operation Date: 01/15/23 10:20 Proposed Procedures p LEFT SHOULDER OPEN ACROMIOPLASTY WITH DISTAL CALVICAL RESECION AND POSSIBLE ROTATOR CUFF REPAIR. 18079 ? 72403,M75.100 M19.019(Left) - Karime Pearl MD s Distal Clavicle Resection(Left) - Karime Pearl MD s Possible Rotator Cuff Repair - Open(Left) - Karime Pearl MD Related Problem List Diagnoses (1) Rotator cuff tear, left: Qualifiers: Rotator cuff tear extent: complete Encounter type: subsequent encounter (2) Arthritis of left acromioclavicular joint: (3) Impingement of left shoulder: (4) Neurosyphilis: (5) Hepatitis C:
--- NOTE | 2023-01-15 10:21 | P.ANESASSM_ITS ---
Pre-Anesthetic Assessment Height/Weight: Height 1.63 m Weight 96.615 kg Pulse Resp BP Pulse Ox O2 Del Method 63 14 130/76 94 Room Air 01/15/23 10:05 01/15/23 10:05 01/15/23 10:05 01/15/23 10:05 01/15/23 10:13 Operation Date: 01/15/23 10:20 Proposed Procedures p LEFT SHOULDER OPEN ACROMIOPLASTY WITH DISTAL CALVICAL RESECION AND POSSIBLE ROTATOR CUFF REPAIR. 53401 ? 57364,M75.100 M19.019(Left) - Karime Pearl MD s Distal Clavicle Resection(Left) - Karime Pearl MD s Possible Rotator Cuff Repair - Open(Left) - Karime Pearl MD Familial anesthetic complications: none Was Beta Eugenio taken within 24 hours: Yes Was Clonidine taken within 24 hours: N/A Last intake: Intake Last Liquid Date 01/14/23 Last Liquid Time 22:00 Last Solid Date 01/14/23 Last Solid Time 19:00 Social No alcohol and No tobacco Exam alert, oriented x 3, clear to auscultation bilaterally and regular rate & rhythm Airway Submandibular: within normal limits Cervical ROM: within normal limits Mallampati: Class II Dentition: false (upper) GI Gastroesophageal Reflux Disease Metabolic Morbid Obesity Neuropsych tremors Anesthetic Plan ASA status: 3 Anesthesia: General and Regional (specify below) (left interscalene) Medications/Allergies Home Medications Medication Instructions Recorded Confirmed Last Taken Type folic acid 1 mg tablet 1 mg PO DAILY #30 tabs 04/21/21 01/15/23 01/14/23 Rx propranolol 20 mg tablet 40 mg PO 0900,2100 #30 tabs 04/21/21 01/15/23 01/14/23 Rx thiamine mononitrate (vit B1) 100 100 mg PO DAILY #30 tabs 04/21/21 01/15/23 01/14/23 Rx mg tablet (Vitamin B-1 (mononitrate)) esomeprazole magnesium 40 mg 20 mg PO BID 07/21/22 01/15/23 01/15/23 History capsule,delayed release (Nexium) loperamide 2 mg capsule (Imodium 2 mg PO Q6H PRN Diarrhea 07/21/22 01/15/23 11/01/22 History A-D) naloxone 2 mg/2 mL syringe kit 2 mg IM Q2M PRN unknown 07/21/22 01/12/23 Unknown History aluminum-mag hydroxide-simethicone 5 ml PO 5XD PRN Indigestion 01/12/23 01/15/23 01/14/23 History 200 mg-200 mg-20 mg/5 mL oral susp camphor-menthol 0.2 %-3.5 % 1 applic topical DAILY PRN Pain 01/12/23 01/12/23 Unknown History topical gel ibuprofen 200 mg tablet 400 mg PO Q6H PRN Pain 01/12/23 01/15/23 01/01/23 History quetiapine 100 mg tablet 300 mg PO BEDTIME 01/12/23 01/15/23 01/14/23 History trazodone 50 mg tablet 100 mg PO BEDTIME 01/12/23 01/15/23 01/14/23 History venlafaxine 150 mg 150 mg PO DAILY 01/12/23 01/15/23 01/15/23 06:00 History capsule,extended release 24 hr (Effexor XR) Allergies Allergy/AdvReac Type Severity Reaction Status Date / Time codeine Allergy ALGY-Anaphy Verified 01/03/23 09:29 laxis diphenhydramine Allergy Unknown Verified 01/03/23 09:29 [From Benadryl] tuberculin, purified protein Allergy Unknown Verified 01/12/23 09:57 deriva [From Aplisol] Current Medications Generic Name Dose Route Start Last Admin Trade Name Freq PRN Reason Stop Dose Admin Sodium Chloride 1,000 mls @ 30 mls/hr 01/15/23 08:30 01/15/23 09:01 Sodium Chloride 0.9% IV 01/16/23 08:29 30 mls/hr .Q24H SHANNAN Administration PFSH Anesthesia Medical History Alcohol use disorder COPD (chronic obstructive pulmonary disease) Drug use Family history of colon cancer GERD (gastroesophageal reflux disease) Hepatitis C History of colon polyps History of neurosyphilis Major depressive disorder Neurosyphilis Tobacco dependency Surgical History History of ankle surgery Right History of esophagogastroduodenoscopy (EGD) 20 yrs ago History of shoulder surgery History of surgery on left wrist Hx of appendectomy Family History Other Cancer Stroke Social History Smoking and tobacco status: former smoker Alcohol intake: former Substance/Drug Use: current Data Anesthesia Cardiac Studies: 2 No Data to Display Anesthesia Procedures Nerve Block Nerve Block 1: Main Anesthesia: general anesthesia Time Out Performed: Yes Consent: requested by attending/covering physician, from patient, risks and benefits reviewed and patient agrees to proceed Nerve block location: interscalene (left) Anesthesia monitors applied: pulse oximetry, EKG, BP cuff and oxygen Nerve block position: semi sitting Anesthetic Used: ropivicaine 0.5% Amount of anesthesia used (mL): 30 Ultrasound used to: recognize landmarks and visualize and ID brachial plexus Nerve Stimulator Used?: No Interscalene/Femoral BLK: 2 stimuplex 22 g needle used for position and inplane approach Injection: neg aspiration of heme Patient Tolerated Procedure: well Complications: none
[2023-01-15] MEDS: ceFAZolin 2,000 MG in sodium chloride 0.9% (plus) 50 ML 100 MG IV (10:28)
[2023-01-15] MEDS: ceFAZolin 1,000 mg SDV 1000 MG IRRIGATION (11:04)
--- NOTE | 2023-01-15 12:46 | ANE.PACU2 ---
Inpatient post-anesthesia follow up: Airway intact: Yes Vital signs: Temperature Pulse Rate 63 Respiratory Rate 14 Blood Pressure 130/76 Pulse Oximetry 94 Oxygen Delivery Me thod Room Air Oxygen Flow Rate 6 Fraction of Inspir ed Oxygen Hydration adequate: Yes Nausea and vomiting: No Pain level: 1 Mental status: Baseline
[2023-01-15] MEDS: meperidine 50 mg/mL INJ 25 MG IVP (13:16)
--- NOTE | 2023-01-15 13:37 | PM.OP ---
Operative Report Date of procedure: January 15, 2023 Pre-op diagnosis: Left shoulder acromioclavicular arthritis with rotator cuff tear and impingement Post-op diagnosis: Left shoulder acromioclavicular arthritis with rotator cuff tear and impingement Post-op findings: Significant impingement with small rotator cuff tear in the distal supraspinatus and acromioclavicular joint osteoarthritis Procedure done: Right shoulder rotator cuff repair, primary, with acromioplasty and distal clavicle resection Implants: None Specimens removed/disposition: None Surgeon: Karime Pearl Management Tech[email or web address] Anesthesia: General (Intubated, ASA 3 with supplemental block, interscalene) Estimated blood loss (mL): 25 IV fluids (mL): 1,000 Urine output (mL): 0 (No Clarke) Complications: None Findings: Thinning of the distal supraspinatus with small tear near the insertion Condition: stable Disposition: PACU (Then return to same-day surgery for discharge to home) Brief History: This 62-year-old gentleman presents today for surgical repair of distal rotator cuff tear as well as impingement and acromioclavicular joint degenerative osteoarthritis. The patient was seen in the office, and MRI was reviewed. The patient wished to proceed with the above repair. Risks and complications were discussed with him. Consents were signed, and questions were answered. His caregiver was present at the time of this discussion. Procedure: The patient was brought to the operating theater and underwent general intubated anesthesia, ASA 3, with supplemental interscalene block. The patient was placed in a beachchair position and subsequently the left upper extremity was prepped and draped in the usual fashion utilizing DuraPrep. The arm was draped free. A surgical pause was performed prior to commencement of the surgical procedure. At the time of the surgical pause, we confirmed the site and side of surgery as well as administration of appropriate preoperative antibiotics Ancef 2 g. MRI was also reviewed at that time. Following the surgical pause, an incision was made at approximately the level of the acromioclavicular joint extending across the anterolateral corner of the acromion and distally as necessary. Care was taken to avoid injury to the axillary nerve by limiting the distal extent of the incision. Dissection continued through skin and soft tissues using a scalpel. Hemostasis was obtained using electrocautery.? Soft tissues were elevated off the acromion.? An acromioplasty was then accomplished using a combination of a saw and a power rasp.? With this, we were able to remove compression caused by the acromion.? The rotator cuff was then evaluated to look for tears.? Upon evaluation, the patient was found to have a longitudinal type rotator cuff tear at the insertion point of the supraspinatus onto the humerus.? This extended proximally and did not have significant impact on the insertion point. The rotator cuff tear was evaluated.? The edges of the tear were freshened using a scalpel.? Repair was accomplished using 0 Ethibond in an interrupted mattress type fashion.? The tear orientation was noted to be vertical. After the rotator cuff had been thus addressed, the shoulder was placed through further range of motion to assure there was no further evidence of rotator cuff tear. The acromioclavicular joint was exposed.? A saw was then used to resect the distal clavicle without difficulty. The undersurface of the clavicle was palpated and was slightly further debrided.? A power rasp was used to further smooth the area.? When this was felt to be adequately resected, the wound was irrigated. Attention was then directed to closure. The wound was irrigated and closure was accomplished with 0 Vicryl in the capsular tissues overlying the acromioclavicular joint area as well as over the acromion and down into the deltoid muscle. 3-0 Monocryl was used to close the subcutaneous tissues followed by 4-0 Monocryl subcuticular closure. This was followed by Dermabond, steri=strips, and an OpSite. The patient was placed in a shoulder immobilizer and was returned to the recovery room in satisfactory condition. The patient will be discharged to home to follow-up with me in the office as scheduled. There were no complications and no specimens. Related Problem List Diagnoses (1) Rotator cuff tear, left: (2) Impingement of left shoulder: (3) Arthritis of left acromioclavicular joint:
[2023-01-15] MEDS: HYDROcodone-acetaminophen 5-325 mg Tablet 1 TAB PO (13:43)
== END 2023-01-15 13:52 | disposition home or self-care (01) ==
PROVIDERS: PCP Internal Medicine; Visit Provider Specialist
PROC: (CPT 23130; principal; 2023-01-15 10:20)
PROC: (CPT 23120; 2023-01-15 10:20)
PROC: (CPT 23120; 2023-01-15 10:20)
DX: M75.42 Impingement syndrome of left shoulder (principal); M75.102 Unspecified rotator cuff tear or rupture of left shoulder, not specified as traumatic; M19.012 Primary osteoarthritis, left shoulder; K21.9 Gastro-esophageal reflux disease without esophagitis; E66.01 Morbid (severe) obesity due to excess calories; Z68.36 Body mass index [BMI] 36.0-36.9, adult; B19.20 Unspecified viral hepatitis C without hepatic coma; Z87.891 Personal history of nicotine dependence
CPT/HCPCS: 23120; 23410; J0131; J0690; J2175; J2250; J2371; J2704; J2710; J3010; J3490; J7030

== ENCOUNTER → 2023-01-29 08:18 | Outpatient (BNVA) | payer MEDICAID, SELFPAY | PROVIDERS: PCP Internal Medicine; Visit Provider Nurse Practitioner Family | DX: M19.012 Primary osteoarthritis, left shoulder (principal); Z98.890 Other specified postprocedural states | CPT/HCPCS: 73030; 99024 ==

== ENCOUNTER → 2023-03-01 08:55 | Outpatient (BNVA) | payer MEDICAID, SELFPAY | PROVIDERS: PCP Internal Medicine; Visit Provider Nurse Practitioner Family | DX: Z98.890 Other specified postprocedural states (principal) | CPT/HCPCS: 73030; 99024 ==

== ENCOUNTER → 2023-05-02 10:32 | Outpatient (BNVA) | payer MEDICAID, SELFPAY | PROVIDERS: PCP Internal Medicine; Visit Provider Nurse Practitioner | DX: M75.102 Unspecified rotator cuff tear or rupture of left shoulder, not specified as traumatic (principal); M19.012 Primary osteoarthritis, left shoulder; Z98.890 Other specified postprocedural states | CPT/HCPCS: 73030; 99214 ==

== ENCOUNTER → 2023-06-20 10:38 | Outpatient (BNVA) | payer MEDICAID, SELFPAY | PROVIDERS: PCP Internal Medicine; Visit Provider Nurse Practitioner | DX: M75.102 Unspecified rotator cuff tear or rupture of left shoulder, not specified as traumatic (principal); M19.012 Primary osteoarthritis, left shoulder; Z98.890 Other specified postprocedural states | CPT/HCPCS: 99214 ==

== ENCOUNTER 2024-08-04 19:36 | Inpatient (IN) | payer MEDICAID, SELFPAY ==
[2024-08-04] VITALS (16 sets, daily range): BP systolic 130–165; BP diastolic 83–111; PULSE 72–97; RESP 17–29; TEMP 36.7–36.9; O2SAT 95–100; BMI 37.8
--- NOTE | 2024-08-04 19:36 | ECG_ITS ---
[facility] Test Date: 2024-08-04 Pat Name: Ede Maier Department: Room: ICU08 Gender: Male Carbider: : 1960 Requested By: Diana Capps Order Number: [id number] Caron MD: Cecil Calixto M.D. Measurements Intervals Johnson Rate: 85 P: 68 WY: 168 QRS: -63 QRSD: 98 T: 34 QT: 387 QTc: 462 Interpretive Statements SINUS RHYTHM LOW QRS VOLTAGE IN PRECORDIAL LEADS [QRS DEFLECTION < 1.0 mV IN CHEST LEADS] LEFT ANTERIOR FASCICULAR BLOCK [QRS AXIS <= -45, QR IN I, RS IN II] ANTEROLATERAL MYOCARDIAL INFARCTION , OF INDETERMINATE AGE [40+ ms Q WAVE IN I/aVL/V3-V6] No previous ECG available for comparison Electronically Signed On 08-07-2024 17:56:24 OTR [employer]NER [employer] by Cecil Calixto M.D. [email or web address]
--- NOTE | 2024-08-04 19:39 | XRR_ITS ---
PROCEDURE INFORMATION: Exam: XR Chest Exam date and time: 08/04/2024 9:31 PM Age: 63 years old Clinical indication: Pain; Other: Stemi; Additional info: Chest pain TECHNIQUE: Imaging protocol: Radiologic exam of the chest. Views: 1 view. COMPARISON: CR XR chest 2V* [id number] 10/31/2022 8:49 AM FINDINGS: Lungs: See Heart/Mediastinum finding. Pleural spaces: Unremarkable. No pleural effusion. No pneumothorax. Heart/Mediastinum: Cardiomegaly and mild pulmonary vascular congestion. Bones/joints: Unremarkable. XR/XR chest 1V portable [id number] IMPRESSION: Cardiomegaly and mild pulmonary vascular congestion.
--- NOTE | 2024-08-04 19:41 | W.ED.CHESTPA ---
HPI - Chest Pain General: Chief Complaint: Chest Pain Stated Complaint: CHEST PAIN Time Seen by Provider: 08/04/24 19:39 History of Present Illness: 63-year-old man with a history of GERD, COPD, neurosyphilis, depression who presents to the emergency room by ambulance from group home with chest pain. This started 20 to 30 minutes ago. On presentation is very diaphoretic. STEMI was called and route with concerns for the EKG. He had not been given any medications and route as an IV was not able to be obtained and he was coming from close by. He does not have any known cardiac history. He lives in a group home secondary to some neurologic issues he had had in the past. No cough. Some nausea with no vomiting. No abdominal pain. Related Data Home Medications ?Medication ?Instructions ?Recorded ?Confirmed esomeprazole magnesium 40 mg 20 mg PO BID 07/21/22 06/20/23 capsule,delayed release (Nexium) loperamide 2 mg capsule (Imodium 2 mg PO Q6H PRN Diarrhea 07/21/22 06/20/23 A-D) naloxone 2 mg/2 mL syringe kit 2 mg IM Q2M PRN unknown 07/21/22 06/20/23 aluminum-mag hydroxide-simethicone 5 ml PO 5XD PRN Indigestion 01/12/23 06/20/23 200 mg-200 mg-20 mg/5 mL oral susp camphor-menthol 0.2 %-3.5 % 1 applic topical DAILY PRN Pain 01/12/23 06/20/23 topical gel ibuprofen 200 mg tablet 400 mg PO Q6H PRN Pain 01/12/23 06/20/23 quetiapine 100 mg tablet 300 mg PO BEDTIME 01/12/23 06/20/23 trazodone 50 mg tablet 100 mg PO BEDTIME 01/12/23 06/20/23 venlafaxine 150 mg 150 mg PO DAILY 01/12/23 06/20/23 capsule,extended release 24 hr (Effexor XR) Previous Rx's ?Medication ?Instructions ?Recorded folic acid 1 mg tablet 1 mg PO DAILY #30 tabs 04/21/21 propranolol 20 mg tablet 40 mg (2 x 20 mg) PO 0900,2100 #30 04/21/21 tabs thiamine mononitrate (vit B1) 100 100 mg PO DAILY #30 tabs 04/21/21 mg tablet (Vitamin B-1 (mononitrate)) Allergies Allergy/AdvReac Type Severity Reaction Status Date / Time codeine Allergy ALGY-Anaphy Verified 08/04/24 19:43 laxis diphenhydramine (From Allergy Unknown Verified 08/04/24 19:43 Benadryl) tuberculin, purified protein Allergy Unknown Verified 08/04/24 19:43 deriva (From Aplisol) Review of Systems Narrative: Constitutional symptoms: Negative except as documented in HPI. Skin symptoms: Negative except as documented in HPI. Eye symptoms: Negative except as documented in HPI. ENMT symptoms: Negative except as documented in HPI. Respiratory symptoms: Negative except as documented in HPI. Cardiovascular symptoms: Negative except as documented in HPI. Gastrointestinal symptoms: Negative except as documented in HPI. Genitourinary symptoms: Negative except as documented in HPI. Musculoskeletal symptoms: Negative except as documented in HPI. Neurologic symptoms: Negative except as documented in HPI. Psychiatric symptoms: Negative except as documented in HPI. Endocrine symptoms: Negative except as documented in HPI. PFSH ED PFSH: Medical History Family history of colon cancer History of colon polyps GERD (gastroesophageal reflux disease) Neurosyphilis Tobacco dependency COPD (chronic obstructive pulmonary disease) Drug use History of neurosyphilis Hepatitis C Major depressive disorder Alcohol use disorder Surgical History Hx of repair of left rotator cuff History of esophagogastroduodenoscopy (EGD) 20 yrs ago History of ankle surgery Right Hx of appendectomy History of surgery on left wrist History of shoulder surgery Family History Other Cancer Stroke Social History Smoking and tobacco/nicotine status: former use of tobacco/nicotine Alcohol intake: former Substance/Drug Use: current Physical Exam Narrative: EXAM NARRATIVE: General: Alert, moderate distress Skin: Warm, diaphoretic. Head: Normocephalic, atraumatic. Neck: Supple, trachea midline. Eye: Extraocular movements are intact. Ears, nose, mouth and throat: mucosa moist. Cardiovascular: Regular, Normal peripheral perfusion. Respiratory: Lungs are clear to auscultation, respirations are non-labored, breath sounds are equal, Symmetrical chest wall expansion. Gastrointestinal: Soft, Nontender, Non distended Musculoskeletal: Normal ROM, no deformity. Neurological: Alert and oriented, No focal neurological deficit observed. Psychiatric: Cooperative, appropriate mood & affect. Course Vital Signs: Vital signs: Vital Signs Temperature 98.4 F 08/04/24 19:43 Pulse Rate 72 08/04/24 20:01 Respiratory Rate 28 H 08/04/24 20:01 Blood Pressure 165/98 08/04/24 20:01 Pulse Oximetry 98 08/04/24 20:01 Oxygen Delivery Me thod Room Air 08/04/24 20:01 MDM - Chest Pain Medical Decision Making Differential diagnosis for patient with chest pain includes but is not limited to and based on the above HPI, review of systems and physical exam: Pneumonia. unstable angina. angina. Acute coronary syndrome / RI. Pulmonary embolism. Costochondritis / musculoskeletal. Pleurisy. Pericarditis. Esophageal spasm. Pancreatis. Cholecystitis. Orders placed to evaluate differential diagnosis based on the above differential, HPI and physical exam EKG: Normal sinus rhythm, ST elevation anterior / lateral leads with reciprocal depression, no ectopy, normal NJ & QRS intervals, this was reviewed and interpreted by myself the emergency room physician. Discussed with campaign fundraiser virtualization consultant Consultation: Dr. Calixto with cardiology saw the patient shortly after arrival to the emergency room and agrees this is a STEMI and is taking him to the cardiac Patrol Captain. Patient taken directly to the cardiac Patrol Captain. Assessment and plan: STEMI. ?P.o. Plavix, IV heparin and p.o. aspirin given in the emergency room. Show given. - Evaluation and treatment of this problem were appropriate in the emergency setting No radiology studies performed this visit Discharge Plan Discharge Patient Disposition: Admitted As Inpatient Clinical Impression: ST elevation myocardial infarction (STEMI) Condition: Stable Coding Level of Care Code ED [facility] for Su Sweet
--- NOTE | 2024-08-04 19:43 | XACV_ITS ---
Exam Room: 2 Ht: 163 cm Wt: 100 kg BSA: 2.17 m2 Gender: Male : 1960 Any Known Allergies: Other Exam Priority: Routine Procedure(s): Procedure Description: Diagnostic procedure Procedure Description: PCI procedure Procedure Description: Drug Eluting Coronary Stent Procedure Description: PTCA Procedure Description: Miscellaneous Procedure Description: ACT Procedure Description: Coronary Angiography Diagnostic Cath Status: Emergency Diagnostic Findings * Left Main is very short. Almost separate ostia. No significant disease. * Circumflex is large sized,dominant vessel. No significant disease. * Right Coronary Artery is small sized vessel and free of signficant disease. * Proximal to mid Left Anterior Descending: total thrombotic occlusion. This is the culprit lesion for stemi. * 1st Diagonal: subtotal occlusion at the ostium. * Coronary angiography shows left dominance. PCI Status: Emergency PCI Indication: Immediate PCI for STEMI Interventional Findings * Proximal Left Anterior Descendin% treated with a AB TREK 2.50X12 RX BALLOON, JOSUÉ Clifford MACIE 2.75X30 LOUIS, JOSUÉ Clifford MACIE 2.5X18 LOUIS, and JOSUÉ PALOMO EUPHORA RX 3.40X55TT BALLOON. * 1st Diagonal: 99% stenosis treated with a AB MINI TREK 2.00X12 RX BALLOON. * Procedure detail: We engaged left main artery with XB 3.5 guide catheter. IV heparin was used for anticoagulation. 0.014 runthrough guidewire was used to cross totally occluded proximal to mid LAD. We then predilated the occlusion with a 2.5x12mm semi-compliant balloon. This was followed by placement of 2.75x30 mm Resolute macie LOUIS from proximal to mid LAD. This was followed by placement of another 2.5x18 mm Resolute macie LOUIS in the mid LAD overlapping the proximal stent. We then post dilated the stents with 3.0x15mm NC balloon. First diagonal artery had ostial subtotal occlusion. Runthrough wire was used to cross the subtotal occlusion. We then dilated the ostial lesion with 2.0x12mm balloon. At this time final angiogram was performed that showed excellent stent expansion, KENDRICK 3 flow and no residual stenosis. Patient left the laborer drying department in a stable condition. Conclusions 1. Total thrombotic occlusion of the proximal to mid LAD s/p successful revascularization with 2 stents. Balloon angioplasty of the ostial diagonal artery performed. 2. Proximal Left Anterior Descending was treated with a Balloon, Drug Eluting Stent, Drug Eluting Stent, and Balloon. 3. 1st Diagonal was treated with a Balloon. Recommendations * Dual antiplatelet therapy with aspirin and plavix. * High intensity statin therapy. * Outpatient cardiology follow up in 2 weeks. Interventional RX Recommendation: PCI w/o planned CABG Diagnostic RX Recommendation: PCI w/o planned CABG Anticoagulation: Heparin Pressures Phase:Rest AO : 129 / 86 ( 105 ) @ 3:16:40 PM 112 / 85 ( 99 ) @ 3:16:40 PM 116 / 84 ( 100 ) @ 3:16:40 PM 120 / 92 ( 106 ) @ 3:16:40 PM Clinical Evaluation EBL: 5mL-10mL Procedural Details Procedure Consent Obtained. Current Diagnosis : STEMI. Pre-Procedure Time Out. Identified patient by full name and date of as verbalized by the patient/guarantor. Does the consent match the physician's order: N/A Emergent; Informed Consent not obtained due to time critical life threat. Accurate & Complete Informed Consent: N/A Emergent; Informed Consent not obtained due to time critical life threat. Inpatient/Outpatient History & Physical on Chart: N/A Emergent; Informed Consent not obtained due to time critical life threat. If H&P is completed, is and addenduem needed: N/A Emergent; Informed Consent not obtained due to time critical life threat; If yes, is the addendum complete: N/A Emergent; Informed Consent not obtained due to time critical life threat. Visualize and Verify Site with Patient/Guarantor: N/A. Relevant Radiology Images available: N/A Emergent; Informed Consent not obtained due to time critical life threat. The risks, benefits, and alternatives of sedation and/or procedure were discussed by physician. The patient agrees to continue. Procedure started. [facility] Clinical Fraility Score: 3: Managing Well. Billboard Mechanic Indications: ACS <= 24 hours. Chest Pain Symptom Assessment: Typical Angina Symptoms. Cardiovascular Instability: Yes, if yes, Persistant Ischemic Symptoms. Correct patient, site and procedure confirmed by cath team. Current diagnosis: STEMI. PERRLA. 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 Lungs clear x 5 lobes. No IV access on arrival. Oxygen started at 2liters/min via nasal canula. bilateral groins was prepped with chloroprep then draped in the usual sterile fashion. Physician notified. Baseline sample Acquired. HR: 61 BPM. Patient's family unavailable. Equipment: 6F - Femoral. Cardiac Cath Pack. ACIST Manifold Kit Model BT 2000. Heparinized Saline (2 units/mL), 1000 mL bag. Kit, Micropuncture. Physician arrived. Physician scrubbed in. Immediate Pre-Procedure Time Out. Correct Patient: N/A Emergent; Informed Consent not obtained due to time critical life threat; Correct Procedure: N/A Emergent; Informed Consent not obtained due to time critical life threat; Correct Site: N/A Emergent; Informed Consent not obtained due to time critical life threat; Correct Patient Position: N/A Emergent; Informed Consent not obtained due to time critical life threat; Correct Supplies: N/A Emergent; Informed Consent not obtained due to time critical life threat; Dried Flammable Prep: N/A Emergent; Informed Consent not obtained due to time critical life threat; Blood Products Available: N/A Emergent; Informed Consent not obtained due to time critical life threat;. Lidocaine 1% infiltrated to the right groin. Venous access obtained with a micropuncture set using ultrasound guidance. IV Fluids: 0.9% NaCl at KVO. 0 mL infused prior to laborer drying department. Arterial access obtained with micropuncture set using ultrasound guidance. 6 burmese XB 3 guide catheter was inserted over the standard J wire. Runthrough guidewire was advanced through the guide catheter to lesion in the mid LAD. Inflation number : 1 A AB TREK 2.50X12 RX BALLOON was prepped and advanced across the Prox LAD , then inflated to 10 SEKOU for 0:10 seconds. Inflation number: 2 The AB TREK 2.50X12 RX BALLOON was reinflated across the Prox LAD, to 10 SEKOU for 0:04 seconds. Balloon out. Results checked. A 2nd Runthrough guidewire was advanced through the guide catheter to lesion in the diaganol. Baseline sample Acquired. HR: 103 BPM. PCI Indication : Immediate PCI for STEMI. Inflation Number : 3 A MDT R MACIE 2.75X30 LOUIS -Lot Number# [id number] was prepped and advanced across the Prox LAD. The stent was deployed at 14 SEKOU for 0:22 seconds. Exp. . Stent balloon out over wire. Inflation Number : 2 A MDT R MACIE 2.5X18 LOUIS -Lot Number# [id number] was prepped and advanced across the Prox LAD. The stent was deployed at 12 SEKOU for 0:16 seconds. Exp. . Runthrough wire out of the diagonal. Inflation number : 5 A MDT NC EUPHORA RX [id number] BALLOON was prepped and advanced across the Prox LAD , then inflated to 12 SEKOU for 0:06 seconds. Inflation number: 6 The MDT NC EUPHORA RX [id number] BALLOON was reinflated across the Prox LAD, to 14 SEKOU for 0:11 seconds. Inflation number: 7 The MDT NC EUPHORA RX [id number] BALLOON was reinflated across the Prox LAD, to 14 SEKOU for 0:10 seconds. Inflation number: 8 The MDT NC EUPHORA RX [id number] BALLOON was reinflated across the Prox LAD, to 14 SEKOU for 0:08 seconds. ACT drawn. Results 379 seconds. Therapeutic limits - pre-heparin administration 90-150 seconds and monitoring heparin during a vascular procedure >250 seconds. IVUS catheter in over the Runthrough guidewire. IVUS performed of the LAD post stenting. IVUS catheter out over the Runthrough guidewire. Redirecting the 1st Runthrough guidwire down the diagonal. The 2nd Runthrough guidewire was advanced through the guide catheter to lesion in the prox LAD. 1st Runthrough guidewire out. Choice PT guidewire was advanced through the guide catheter to lesion in the diagonal. 2nd Runthrough guidewire out. Inflation number : 1 A AB MINI TREK 2.00X12 RX BALLOON was prepped and advanced across the 1st Diag , then inflated to 8 SEKOU for 0:14 seconds. Inflation number: 2 The AB MINI TREK 2.00X12 RX BALLOON was reinflated across the 1st Diag, to 8 SEKOU for 0:10 seconds. Rn Mds 50 guidewire out. Guide catheter out over the standard J wire. A 5 burmese JR4 catheter in over the standard J wire. Cineography of the RCA performed. Catheter removed over the standard J wire. A 5 burmese JL4 catheter in over the standard J wire. ACT drawn. Results 308 seconds. Therapeutic limits - pre-heparin administration 90-150 seconds and monitoring heparin during a vascular procedure >250 seconds. Multiple views taken of left coronary artery. A Right femoral angiogram was performed to determine safe placement of closure device. Physician scrubbed out. A Suture was successful obtaining hemostatsis at the Right Femoral vein insertion site. A Suture was successful obtaining hemostatsis at the Right Femoral artery insertion site. Sheath(s) sutured into position with 2-0 silk and sterile 4x4's and Op-site applied over the site. No oozing or signs and symptoms of hematoma noted. Arterial sheath flushed and connected to tranducer and pressure bag with heparinized saline. Venous sheath flushed and connected to 0.9% NaCl with extension tubing. Post Procedure: bilateral dorsalis pedis pulse Doppled. Post Procedure: bilateral posterior tibial pulse Doppled. PERRLA. 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 No VTE prophylaxis required. Medication's Wasted: Lidocaine 1% = 10 mL. Medication's Wasted: Nitro = 49.8 mg. Medication's Wasted: Heparin = 4000 units. Total IV fluids: 300 mL. PCI Indication: STEMI. Post-op diagnosis: PCI of the Prox LAD with 2 LOUIS, POBA of the 1st diagonal. Complications: none. Estimated blood loss: 5mL-10mL. Responsiveness - Normal response to verbal stimuli; alert and oriented, PERRLA. Airway - Unaffected, no intervention required; spontaneous ventilation. Circulation: W/N/L, pulses unchanged. Nausea/Vomiting: No. Procedure completed. Patient transferred by bed to ICU. Vital chart was stopped. Balloon out. Results checked. Results checked. Balloon out. Results checked. Catheter removed over the standard J wire. Access Site Site: Right Femoral vein Sheath Size: 6 Fr Hemostasis Method: Suture Hemostasis Success: Successful Site: Right Femoral artery Sheath Size: 6 Fr Hemostasis Method: Suture Hemostasis Success: Successful Procedure Medications Start: 8:09 PM Stop: 8:09 PM Medication: Versed Amount: 1 mg Route: I.V. Start: 8:10 PM Stop: 8:10 PM Medication: Heparin Amount: 4000 units Route: I.V. Start: 8:09 PM Stop: 8:09 PM Medication: Fentanyl Amount: 50 mcg Route: I.V. Start: 8:13 PM Stop: 8:13 PM Medication: Versed Amount: 1 mg Route: I.V. Start: 8:14 PM Stop: 8:14 PM Medication: Heparin Amount: 5000 units Route: I.V. Start: 8:18 PM Stop: 8:18 PM Medication: Fentanyl Amount: 25 mcg Route: I.V. Start: 8:23 PM Stop: 8:23 PM Medication: Heparin Amount: 1000 units Route: I.V. Start: 8:30 PM Stop: 8:30 PM Medication: Nitrogylcerin Amount: 200 mcg Route: I.C. Start: 8:40 PM Stop: 8:40 PM Medication: Fentanyl Amount: 25 mcg Route: I.V. Start: 8:57 PM Stop: 8:57 PM Medication: Nitrogylcerin Amount: 5 mcg/min Route: I.VNeeraj ivy I, the attending physician, have reviewed and verified all procedure medications. Yes, all medications given per verbal order History/Risk Factors Tobacco Use: Former Report Signatures Finalized by Cecil Calixto MD on 08/18/2024 08:26 PM
--- NOTE | 2024-08-04 19:49 | PM.HP ---
Providers/Chief Complaint Admitting Physician: Cecil Calixto MD/ Cardiology Primary Care Provider: Maribel Cunningham MD Chief Complaint: CHEST PAIN History of Present Illness Ede Maier is a 63 year old male who was brought from the group home with chief complaint of chest pain. Pain started about 2 hours ago. Severe substernal. Patient has history of neurosyphilis, hepatitis C per chart. He is having significant chest pain currently. EKG shows a ST elevation HI lateral leads and aVL and V2. Per EMS patient is a full code at nursing facility. Review of Systems General: Reports: 10 or more systems reviewed and unremarkable except in HPI and below Medications/Allergies Home Medications ?Medication ?Instructions ?Recorded ?Confirmed ?Last Taken ?Type folic acid 1 mg tablet 1 mg PO DAILY #30 tabs 04/21/21 06/20/23 01/14/23 Rx propranolol 20 mg tablet 40 mg (2 x 20 mg) PO 0900,2100 #30 04/21/21 06/20/23 01/14/23 Rx tabs thiamine mononitrate (vit B1) 100 100 mg PO DAILY #30 tabs 04/21/21 06/20/23 01/14/23 Rx mg tablet (Vitamin B-1 (mononitrate)) esomeprazole magnesium 40 mg 20 mg PO BID 07/21/22 06/20/23 01/15/23 History capsule,delayed release (Nexium) loperamide 2 mg capsule (Imodium 2 mg PO Q6H PRN Diarrhea 07/21/22 06/20/23 11/01/22 History A-D) naloxone 2 mg/2 mL syringe kit 2 mg IM Q2M PRN unknown 07/21/22 06/20/23 Unknown History aluminum-mag hydroxide-simethicone 5 ml PO 5XD PRN Indigestion 01/12/23 06/20/23 01/14/23 History 200 mg-200 mg-20 mg/5 mL oral susp camphor-menthol 0.2 %-3.5 % 1 applic topical DAILY PRN Pain 01/12/23 06/20/23 Unknown History topical gel ibuprofen 200 mg tablet 400 mg PO Q6H PRN Pain 01/12/23 06/20/23 01/01/23 History quetiapine 100 mg tablet 300 mg PO BEDTIME 01/12/23 06/20/23 01/14/23 History trazodone 50 mg tablet 100 mg PO BEDTIME 01/12/23 06/20/23 01/14/23 History venlafaxine 150 mg 150 mg PO DAILY 01/12/23 06/20/23 01/15/23 06:00 History capsule,extended release 24 hr (Effexor XR) Allergies Allergy/AdvReac Type Severity Reaction Status Date / Time codeine Allergy ALGY-Anaphy Verified 08/04/24 19:43 laxis diphenhydramine (From Allergy Unknown Verified 08/04/24 19:43 Benadryl) tuberculin, purified protein Allergy Unknown Verified 08/04/24 19:43 deriva (From Aplisol) PFSH Acute PFSH: Medical History Family history of colon cancer History of colon polyps GERD (gastroesophageal reflux disease) Neurosyphilis Tobacco dependency COPD (chronic obstructive pulmonary disease) Drug use History of neurosyphilis Hepatitis C Major depressive disorder Alcohol use disorder Surgical History Hx of repair of left rotator cuff History of esophagogastroduodenoscopy (EGD) 20 yrs ago History of ankle surgery Right Hx of appendectomy History of surgery on left wrist History of shoulder surgery Family History Other Cancer Stroke Social History Smoking and tobacco/nicotine status: former use of tobacco/nicotine Alcohol intake: former Substance/Drug Use: current Vitals/I&O/Wt Last Vital Signs Temp 98.4 F 08/04/24 19:43 Pulse 76 08/04/24 19:43 Resp 18 08/04/24 19:43 BP 165/98 08/04/24 19:43 Pulse Ox 98 08/04/24 19:43 O2 Del Method Room Air 08/04/24 19:43 08/04/24 08/04/24 08/04/24 06:59 14:59 22:59 Intake Total 0 / 0 Balance 0 / 0 Weight last 48 hrs Weight 220 lb Physical Exam Narrative: GENERAL: Patient is alert HEART: Regular S1 and S2. No murmur, rub or gallop. LUNGS: Clear to auscultate bilaterally. CENTRAL NERVOUS SYSTEM: Grossly nonfocal. EXTREMITIES: Lower extremities without edema bilaterally. A&P Assessment and plan (1) ST elevation myocardial infarction (STEMI): (2) Hepatitis C: Plan Patient has presented with acute ST elevation HI and ST elevation seen in lateral leads I and aVL and V2. Patient given aspirin and Plavix. We will emergently taken to cardiac [facility] [employer] [facility] to perform coronary angiogram possible PCI Spoke with patient's mother over the phone and updated. Because of lack of IV access, we will place femoral venous sheath. PDMP PDMP Reviewed: Not Reviewed Attestations Medical Necessity Statement*: Care expected to cross 2 midnights. Coding Level of Care Code Acute Code for [facility] Diagnoses ST elevation myocardial infarction (STEMI) I21.3 Hepatitis C B19.20
[2024-08-04] MEDS: clopidogrel 300 mg Tablet 600 MG PO (19:59)
--- NOTE | 2024-08-04 21:11 | PM.PROC ---
Procedure Note: Date of procedure: 08/04/24 Pre-procedure diagnosis: STEMI Post-procedure diagnosis: other (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 Almost separate ostia. LAD has total thrombotic occlusion of proximal to mid vessel. S/p successful revascularization with 2 stents. First diagonal artery underwent balloon angioplasty. RCA is small non dominant artery. Left circumflex artery is large in size and is dominant. No significant disease Dual antiplatelet therapy with aspirin and plavix High intensity statin therapy Transfer to ICU Performing Provider: Cecil Calixto Estimated blood loss (mL): 10 Complications: None Condition: stable Disposition: ICU Coding Level of Care Code Acute Code for Su Fwmelissa
[2024-08-04] MEDS: nitroglycerin drip 50 MG/250 ML PREMIX IV (21:16)
--- NOTE | 2024-08-04 21:18 | ECG_ITS ---
[employer] Test Date: 2024-08-04 Pat Name: Ede Maier Department: Room: ICU08 Gender: Male Gift Consultant: : 1960 Requested By: Diana Capps Order Number: [id number] Reading MD: BRANDY DOMINGUEZ Measurements Intervals [place] Rate: 96 P: 0 NM: 0 QRS: 151 QRSD: 178 T: 28 QT: 409 QTc: 519 Interpretive Statements UNCERTAIN REGULAR RHYTHM INTRAVENTRICULAR CONDUCTION DELAY [130+ ms QRS DURATION] POSSIBLE RIGHT VENTRICULAR HYPERTROPHY [SOME/ALL OF: PROMINENT R IN V1, LATE TRANSITION, RAD, YUNG, SSS] ANTEROLATERAL MYOCARDIAL INFARCTION , PROBABLY RECENT [40+ ms Q WAVE IN I/aVL/V3-V6] ACUTE OH No previous ECG available for comparison Electronically Signed On 08-12-2024 23:57:45 ITALIAN TEACHER by BRANDY DOMINGUEZ [id number] [id number]
--- NOTE | 2024-08-04 21:27 | USCV_ITS ---
Ede Maier Age: 63 Gender: M : 1960 Exam Date: 08/04/2024 22:00 Ordering Phys: Cecil Calixto M.D ([email or web address]) Technologist: MIKE Exam Location: [facility] [facility] Indication: Post STEMI, chest pain BP: 165 / 98 HR: 90 Rhythm: Sinus Technical Quality: Adequate MEASUREMENTS (Male / Female) Normal Values 2D ECHO LV Diastolic Diameter PLAX 5.3 cm 4.2 - 5.9 / 3.9 - 5.3 cm IVS Diastolic Thickness 2.1 cm 0.6 - 1.0 / 0.6 - 0.9 cm IVS Systolic Thickness 2.4 cm LVPW Diastolic Thickness 1.6 cm 0.6 - 1.0 / 0.6 - 0.9 cm LVPW Systolic Thickness 2.1 cm LVOT Diameter 1.5 cm LV Ejection Fraction 2D Teich 57.3 % LV Ejection Fraction MOD 4C 27.3 % LV Ejection Fraction MOD 2C 28.7 % LV Ejection Fraction 2C AL 30.9 % LA Diameter 3.5 cm Aorta at Sinotubular Diameter 3.4 cm IVC Diameter 1.6 cm M-MODE LA Ao Ratio MM 0.6 AV Cusp Separation MM 1.9 cm DOPPLER AV Peak Velocity 90.0 cm/s LVOT Peak Velocity 60.0 cm/s AV Area Cont Eq vti 1.1 cm squared AV Area Cont Eq pk 1.2 cm squared MV Peak Velocity 82.0 cm/s MV Area PHT 3.9 cm squared Mitral E to A Ratio 0.8 TR Peak Velocity 284.0 cm/s TR Peak Gradient 32.3 mmHg TV Peak E Velocity 57.0 cm/s PV Peak Velocity 71.0 cm/s FINDINGS Left Ventricle Left ventricle is normal in size. LV systolic function is moderate to severely reduced with EF of 30-35%. Severe hypokinesis of apical septal, apical and apical inferior wall. Grade 1 diastolic dysfunction Right Ventricle Normal in size and function Right Atrium Normal in size Left Atrium Normal in size Mitral Valve Structurally normal mitral valve. Mild mitral regurgitation Aortic Valve Structurally normal aortic valve. No significant stenosis or regurgitation. Tricuspid Valve Mild tricuspid regurgitation. RVSP is normal. Pulmonic Valve Not well visualized Pericardium Possible trivial pericardial effusion Aorta Grossly normal IVC Appears to be normal CONCLUSIONS LV systolic function is moderate to severely reduced with EF of 30-35%. Above mentioned regional wall motion abnormalities. Grade 1 diastolic dysfunction Mild mitral regurgitation Mild tricuspid regurgitation Possible trivial pericardial effusion No comparison studies are available. Cecil Calixto MD (Electronically Signed) Final Date: 05 August 2024 19:46 S
--- NOTE | 2024-08-04 21:54 | P.CONIM_ITS ---
Providers/Reason For Consult 2 Consulting Physician/Specialty*: Hospitalist Reason for Consult*: Postop management Attending Physician: Cecil Calixto M.D Primary Care Provider: Maribel Cunningham MD History of Present Illness History of Present Illness Ede Maier is a 63 year old male resident of a [place] [facility], history of neurosyphilis, COPD, presented with chief complaint of chest pain that started a few hours before her presentation to the ER,, STEMI was called, patient went to the Threader Operator got 2 stents in LAD, hospitalist was consulted for post catheter management. Patient was evaluated in the ICU bed #8, he is complaining of pain hurting all over with worsening headache currently he is on nitroglycerin drip. He was given Ativan, morphine. Patient takes Seroquel very high dose along with trazodone. Right groin access without any signs of hematoma Review of Systems 2 Const: Denies: fever(s) Eyes: Denies: change in vision ENMT: Denies: throat pain Card: Reports: chest pain Resp: Reports: dyspnea GI: Denies: abdominal pain : Denies: flank pain Musc: Denies: neck pain Medications/Allergies Home Medications ?Medication ?Instructions ?Recorded ?Confirmed ?Last Taken ?Type folic acid 1 mg tablet 1 mg PO DAILY #30 tabs 04/2106/20/23 01/14/23 Rx propranolol 20 mg tablet 40 mg (2 x 20 mg) PO 0900,21 00 #30 04/21/21 06/20/23 01/14/23 Rx tabs thiamine mononitrate (vit B1) 100 100 mg PO DAILY #30 tabs 04/21/21 06/20/23 01/14/23 Rx mg tablet (Vitamin B-1 (mononitrate)) esomeprazole magnesium 40 mg 20 mg PO BID 07/21/2209/0801/15/23 History capsule,delayed release (Nexium) loperamide 2 mg capsule (Imodium 2 mg PO Q6H PRN Diarr hea 07/21/22 06/20/23 11/01/22 History A-D) naloxone 2 mg/2 mL syringe kit 2 mg IM Q2M PRN unknown 07/21/22 06/20/23 Unknown History aluminum-mag hydroxide-simethicone 5 ml PO 5XD PRN Ind igestion 01/12/23 06/20/23 01/14/23 History 200 mg-200 mg-20 mg/5 mL oral susp camphor-menthol 0.2 %-3.5 % 1 applic topical DAILY PRN Pain 01/12/23 06/20/23 Unknown History topical gel ibuprofen 200 mg tablet 400 mg PO Q6H PRN Pain 01/1206/20/23 01/01/23 History quetiapine 100 mg tablet 300 mg PO BEDTIME 01/12/23 0 06/20/23 01/14/23 History trazodone 50 mg tablet 100 mg PO BEDTIME 01/12/23 0 06/20/23 01/14/23 History venlafaxine 150 mg 150 mg PO DAILY 01/12/2309/0801/15/23 06:00 History capsule,extended release 24 hr (Effexor XR) Allergies Allergy/AdvReac Type Severity Reaction Status Date / Time codeine Allergy ALGY-Anaphy Verified 08/04/24 19:43 laxis diphenhydramine (From Allergy Unknown Verified 08/04/24 19:43 Benadryl) tuberculin, purified protein Allergy Unknown Verified 08/04/24 19:43 deriva (From Aplisol) PFSH Acute 2 PFSH: Medical History Family history of colon cancer History of colon polyps GERD (gastroesophageal reflux disease) Neurosyphilis Tobacco dependency COPD (chronic obstructive pulmonary disease) Drug use History of neurosyphilis Hepatitis C Major depressive disorder Alcohol use disorder Surgical History Hx of repair of left rotator cuff History of esophagogastroduodenoscopy (EGD) 20 yrs ago History of ankle surgery Right Hx of appendectomy History of surgery on left wrist History of shoulder surgery Family History Other Cancer Stroke Social History Smoking and tobacco/nicotine status: former use of tobacco/nicotine Alcohol intake: former Substance/Drug Use: current Vitals/I&O/Wt Last Vital Signs Temp 98.4 F 08/04/24 19:43 Pulse 72 08/04/24 20:01 Resp 28 H 08/04/24 20:01 BP 165/98 08/04/24 20:01 Pulse Ox 98 08/04/24 20:01 O2 Del Method Room Air 08/04/24 20:01 08/04/24 08/04/24 08/04/24 06:59 14:59 22:59 Intake Total 0 / 0 Balance 0 / 0 Weight last 48 hrs Weight 99.79 kg Physical Exam 2 Narrative: Patient is euvolemic GCS 15 Awake and alert In distress Anxious appearing Tachycardic Tachypnea Currently doing well 93% on room air Right groin vascular access no signs of hematoma GCS 15 S1, S2 No active focal deficit Anxious appearing gentleman laying supine Data 08/04/24 21:48 08/04/24 21:48 A&P Assessment and plan (1) ST elevation myocardial infarction (STEMI): (2) Alcohol use disorder: (3) Mild benzodiazepine use disorder: (4) Neurosyphilis: Plan STEMI status post PCI 2 stents in LAD Right groin access without any complications Patient seems very anxious I will continue his Seroquel dose along with morphine and as needed Xanax Right groin access to be removed as per the protocol Wean off nitroglycerin drip overnight For headache use Tylenol Given morphine 2 mg on as-needed basis as well Continue Protonix Will request labs for the morning For history of depression continue Effexor Full code Cardiac diet For 2 stents in the LAD will add dual antiplatelet therapy, aspirin and Plavix, high intensity statins add lisinopril as well PDMP PDMP Reviewed: Not Reviewed Consult Attestations 2 Medical Necessity Statement: As per cardiology Diagnoses ST elevation myocardial infarction (STEMI) I21.3 Alcohol use disorder F10.90 Mild benzodiazepine use disorder F13.10 Neurosyphilis A52.3
[2024-08-04 21:58] LABS: Basophils % 0.3 %; Eosinophils # 0.1 10^3/uL (0.0-0.8); Eosinophils % 0.4 %; Hematocrit 43.6 % (37-53); Lymphocytes # 1.2 10^3/uL (0.8-4.8); Lymphocytes % 9.2 %; Mean Corpuscular HGB Conc 34.2 g/dL (30-55); Mean Corpuscular Hemoglobin 29.6 pg (27-33); Mean Corpuscular Volume 86.5 fl (82-101); Mean Platelet Volume 9.6 fL (7.4-10.4); Monocytes # 0.8 10^3/uL (0.2-0.9); Monocytes % 5.9 %; Neutrophils # 10.97 10^3/uL (1.8-7.7); Neutrophils % 83.7 %; Nucleated Red Blood Cells % 0 %; Platelet Count 268 10^3/cmm (157-399); Red Blood Count 5.04 10^6/uL (3.85-5.65); Red Cell Distribution Width 12.2 % (12.1-15.1)
[2024-08-04] MEDS: metoprolol tartrate 25 mg Tablet PO (22:01)
[2024-08-04 22:17] LABS: Estmated Average Glucose 117; Hemoglobin A1C 5.7 % (4.0-6.0)
[2024-08-04 22:26] LABS: Alanine Aminotransferase 66 U/L (0-41); Albumin Level 3.8 g/dL (3.5-5.2); Alkaline Phosphatase 104 U/L (40-130); Anion Gap 21.9 (5-19); Aspartate Amino Transferase 379 U/L (0-40); Blood Urea Nitrogen 11 mg/dL (8-23); Calcium 9.1 mg/dL (8.5-10.5); Carbon Dioxide 18 mmol/L (22-29); Chloride 99 mmol/L (98-107); Creatinine Clr Calc Pharmacy 103.4626; Globulin 3.4 g/dL (1.3-4.6); Glomerular Filtration Rate 98.3 mL/min (90-130); Glucose 144 mg/dL (65-115); NT Pro B Type Natriuretic Pept 98 pg/mL (0-125); Osmolality Calculated 282 mOsm/kg (285-295); Potassium 3.9 mmol/L (3.5-5.1); Sodium 135 mmol/L (136-145); Total Bilirubin 1.1 mg/dL (0.15-1.2); Total Protein 7.2 g/dL (6.6-8.7)
[2024-08-04] MEDS: ALPRAZolam 0.5 mg Tablet PO (22:46)
[2024-08-04] MEDS: morphine 4 mg/mL SDV 1 mL 2 MG IVP (22:49)
--- NOTE | 2024-08-04 23:25 | PC.NURSE ---
Addendum entered by Chata Manriquez RN 08/05/24 01:38: Notified Dr. Hernandez of 03/27 pain @0137 and that Morphine helps but only for about 2 hours. New order for Dilaudid 0.4mg IVP ONCE NOW. Original Note: Physician Communication: Shortly after arrival to unit Dr. Calixto was here to see pt. New order to pull arterial sheath per protocol. Pt arrived to ICU w/ Nitro drip running- New order for Nitro titratable drip for chest pain. Dr. Calixto aware of 03/[address] Calixto called @6576 to clarify med orders that were late in the AUG. New order to non-admin the orders for Heparin subq, Nitro sublingual, Amio 150 IVP, and Plavix PO. Dr. Calixto called @5748 to notify of 03/27 chest pain and extreme anxiety. New order for 0.[address] Hernandez on unit shortly after. New order to change Xanax dose to 0.50.
[2024-08-04] MEDS: quetiapine 300 mg Tablet 100 MG PO (23:31)
[2024-08-05] VITALS (82 sets, daily range): BP systolic 71–155; BP diastolic 48–103; PULSE 72–96; RESP 15–36; TEMP 36; O2SAT 88–100
[2024-08-05 00:03] LABS: Influenza A NEGATIVE (Negative); Influenza B NEGATIVE (Negative); Respiratory Syncytial Virus Ce NEGATIVE (Negative); SARS-CoV-2 PCR NEGATIVE (Negative)
--- NOTE | 2024-08-05 01:40 | ECG_ITS ---
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[employer]: : 1960 Requested By: Diana Capps Order Number: [id number] Reading MD: BRANDY DOMINGUEZ Measurements Intervals [place] Rate: 90 P: 60 TX: 173 QRS: 55 QRSD: 92 T: 86 QT: 373 QTc: 459 Interpretive Statements SINUS RHYTHM LOW QRS VOLTAGE IN PRECORDIAL LEADS [QRS DEFLECTION < 1.0 mV IN CHEST LEADS] ANTEROLATERAL MYOCARDIAL INFARCTION , PROBABLY RECENT [40+ ms Q WAVE IN I/aVL/V3-V6] Compared to ECG 08/04/2024 21:18:18 Low QRS voltage now present Intraventricular conduction delay no longer present Myocardial infarct finding still present Electronically Signed On 08-12-2024 23:57:34 PHOTOENGRAVING PHOTOGRAPHER by BRANDY DOMINGUEZ [email or web address]
[2024-08-05] MEDS: HYDROMORPHONE HCL 0.5 MG/0.5 ML INJ (02:07)
[2024-08-05 02:53] LABS: Partial Thromboplastin Time 25.4 SECONDS (23.9-36.7)
[2024-08-05 04:04] LABS: Basophils % 0.2 %; Eosinophils % 0.1 %; Hematocrit 40.2 % (37-53); Lymphocytes # 1.1 10^3/uL (0.8-4.8); Lymphocytes % 8.4 %; Mean Corpuscular HGB Conc 34.6 g/dL (30-55); Mean Corpuscular Hemoglobin 29.3 pg (27-33); Mean Corpuscular Volume 84.6 fl (82-101); Mean Platelet Volume 10.1 fL (7.4-10.4); Monocytes # 0.8 10^3/uL (0.2-0.9); Monocytes % 6.2 %; Neutrophils # 10.85 10^3/uL (1.8-7.7); Neutrophils % 84.7 %; Nucleated Red Blood Cells % 0 %; Platelet Count 238 10^3/cmm (157-399); Red Blood Count 4.75 10^6/uL (3.85-5.65); Red Cell Distribution Width 12.2 % (12.1-15.1); White Blood Count 12.81 10^3/uL (3.29-11.43)
[2024-08-05 04:24] LABS: Anion Gap 16.8 (5-19); Blood Urea Nitrogen 12 mg/dL (8-23); Calcium 8.7 mg/dL (8.5-10.5); Carbon Dioxide 23 mmol/L (22-29); Chloride 100 mmol/L (98-107); Creatinine Clr Calc Pharmacy 103.9607; Glomerular Filtration Rate 98.3 mL/min (90-130); Glucose 155 mg/dL (65-115); Osmolality Calculated 285 mOsm/kg (285-295); Potassium 3.8 mmol/L (3.5-5.1); Sodium 136 mmol/L (136-145)
[2024-08-05] MEDS: morphine 4 mg/mL SDV 1 mL 2 MG IVP ×4 (04:35→23:17)
--- OUTSIDE RECORDS SUMMARY | 2024-08-05 05:33 | XMS_ITS | Data Portability ---
Author Organization [place] [facility] [place], ADMIN Address [address] [place] [id number] Care Team Providers Care Cuff Runner Name Role Phone BROWNRAMANA ADAMES Primary Care Provider Assessment Encounter Date Assessment Date Assessment LastModified by Organization Details LastModified Time 09/11/2023 09/11/2023 63-year-old male presents to the clinic for consultation regarding GERD. He is currently taking nexium granules 20mg PO BID, he does not feel that this is working well. He states that he will wake up at night refluxing and coughing from breathing it in. He had an EGD and Colonoscopy performed at [facility] in [place] approx 14 months ago. He states that they told him that everything was well. They did not dilate his esophagus at this time but he states that he has had his esophagus dilated before. He does complain of dysphagia today. He complains of lower abdominal pain, he states that his BMs are normal. He has a family history of colon cancer in his mother, he had a colonoscopy last year and one polyp was removed, he was told to repeat in 5 years Impression: 1. GERD 2. Dysphagia 3. History of esophageal stricture with dilation 4. History of neurosyphilis, treated 5. Previous EGD and Colonoscopy one year ago at [place], dilation was not done 6. History of schizophrenia and depression 7. Family history of colon cancer in mother Recommendations: 1. Schedule EGD at patient's earliest convenience 2. Repeat Colonoscopy in 4 years 3. Attempt to obtain records from endoscopes at [place] last year 4. D/c nexium granules BID 5. Begin omeprazole 40mg PO BID, 30 minutes prior to am and pm meals 6. Begin Famotidine at hs 7. Anti-reflux precautions/ do not eat 3 hours prior to bedtime 8. Follow up 2 weeks post EGD [email or web address] Not available 09/11/2023 12:09:11 11/19/2023 11/19/2023 63-year-old male presents to the clinic for follow up after having an EGD. He states that his dysphagia has resolved, s/p dilation and that his GERD is much better managed. I counseled him not to eat 3 hrs prior to lying down and to avoid trigger foods. He had an EGD and Colonoscopy performed at [facility] in [place] approx 14 months ago. He states that they told him that everything was well. They did not dilate his esophagus at this time but he states that he has had his esophagus dilated before. He does complain of dysphagia today. He complains of lower abdominal pain, he states that his BMs are normal. He has a family history of colon cancer in his mother, he had a colonoscopy last year and one polyp was removed, he was told to repeat in 5 years Impression: 1. GERD 2. Dysphagia 3. History of esophageal stricture with dilation 4. History of neurosyphilis, treated 5. Previous EGD and Colonoscopy one year ago at [place], dilation was not done 6. History of schizophrenia and depression 7. Family history of colon cancer in mother Recommendations: 1. Repeat Colonoscopy in 4 years 3. Attempt to obtain records from endoscopes at [place] last year 4. Begin omeprazole 40mg PO BID, 30 minutes prior to am and pm meals 5. Begin Famotidine 40mg at hs 6. Anti-reflux precautions/ do not eat 3 hours prior to bedtime 7. Follow up as needed based on clinical course [email or web address] Not available 11/19/2023 11:00:14 Plan of Treatment Reminders Order Date Submit Date Provider Last Modified By Organization Details Last Modified Time Details Appointments None recorded. Lab None recorded. Referral None recorded. Procedures upper endoscopy procedure (EGD) (PROC) - Possible Procedures: Take biopsies if indicated, possible variceal banding, possible argon plasma coagulation , possible esophageal dilation, possible snare polypectomy .Pre-Proced ure Orders:1. Start 20 gauge or larger heparin/roz ine lock, may use 0.5 ml of 1% lidocaine or topical anesthetic cream. Start IVF of Lactated Ringers at 80 ML/HR. Post Procedure:1 . Vitals every 5 minutes times 3, then every 30 minutes until discharge. 2. Remove IV when tolerating liquids well. 3. Discharge when meets criteria. 4. Schedule Clinic Follow up in 3 weeksCPT: 76248, 86524, [address]4813, 20[address] 2023 [facility], [address], [place], [address], 11:59:22 Surgeries None recorded. Imaging None recorded. Medication Orders omeprazole 40 mg capsule,del ayed release 2023 [place], [address] [place], [address], 17:09:49 famotidine 40 mg tablet 2023 [place], [address] [place], [address], 17:57:54 Patient TargetsNo targets recorded. Patient Instructions Encounter Date Encounter Id Patient Instructions Last Modified By Organization Details Last Modified Time 11/19/2023 [id number] learning about swallowing problems [email or web address] Not available 11/19/2023 10:38:28 Reason for Referral None Reported. Results Created Date Observation Date Name Description Value Unit Range Abnormal Flag Note LastModifiedBy Organization Detail LastModifiedTime 10/09/19 24 10/09/2023 GLUCO SE LEVEL POC BEDSI DE glu POC bdside 117 mg/dL 65-90 high Opera tor ID: [id number] Not Available [facility] (Lab) [address], [place], [address], 10/09/2023 09:57:49 Result Notes None recorded. Problems Name Problem SNOMED Code Status Onset Date Resolution Date Notes Provider Name and Address Organization Details Recorded Time Gastroesophage al reflux disease without esophagitis 972885600 Active 2023 SUSHILA WHITTINGTON NP [address] [place] [address], [phone], [facility] [place] [facility] [place] 10:40:27 Esophageal dysphagia 33759892 Active 2023 SUSHILA WHITTINGTON NP [address] [place], [address], [facility] [place] [facility] [place] 4 10:40:32 Problem Notes None recorded. Medical Equipment None Reported. Allergies Allergen ID Allergen Name Allergen Category Reaction Reaction Severity Criticality Documentation Date Start Date Code Code System Note Provider Name and Address Organization Details Recorded Time 531093 codeine medicatio n Not available Not available Not available 11/19/2023 2670 RxNorm Umair Navarro, W[employer]OW [employer]MER null, [place] - [facility] [place] 4 10:11:56 332375 Benadryl medicatio n Not available Not available Not available 11/19/2023 86678 7 RxNorm Umair Navarro, [employer] null, [place] - [facility] [place] 4 10:12:00 Medications Name Sig Start Date Stop Date Status Note LastModified by Organization Details LastModified Time Seroquel 300 mg tablet Take 1 tablet every day by oral route at bedtime. active Not Available Not Available No t Available famotidine 40 mg tablet Take 1 tablet every day by oral route for 90 days. 2023 active Not Available Not Available Not Avai lable omeprazole 40 mg capsule,delay ed release Take 1 capsule twice a day by oral route for 90 days. 2023 active Not Available Not Available Not Avai lable propranolol 40 mg tablet Take 1 tablet every day by oral route. active Not Available Not Available No t Available trazodone 100 mg tablet Take 1 tablet every day by oral route at bedtime. active Not Available Not Available No t Available Effexor XR 150 mg capsule,exten ded release Take 1 capsule every day by oral route. active Not Available Not Available No t Available ibuprofen 400 mg tablet Take 1 tablet every 8 hours by oral route as needed. active Not Available Not Available N ot Available folic acid 1 mg tablet Take 1 tablet every day by oral route. active Not Available Not Available No t Available Vitamin B-1 100 mg tablet Take 1 tablet every day by oral route. active Not Available Not Available No t Available docusate sodium 100 mg tablet Take 1 tablet every day by oral route. active Not Available Not Available No t Available Tylenol Extra Strength 500 mg tablet Take 2 tablets every 8 hours by oral route as needed. active Not Available Not Available N ot Available Mylanta 200 mg-200 mg-20 mg/5 mL oral suspension Take 30 mL every 8 hours by oral route as needed. active Not Available Not Available N ot Available Nexium Packet 20 mg granules delayed release for susp Take 1 packet twice a day by oral route. active Not Available Not Available No t Available Biofreeze (menthol) 4 % topical gel active Not Available Not Available Not Available naloxone 2 mg/2 mL syringe kit Take 2 mg as needed by injection route. active Not Available Not Available No t Available Vitals Date Recorded Body weight Oxygen saturation Oxygen saturation in Arterial blood by Pulse oximetry Heart rate Systolic blood pressure Diastolic blood pressure Provider Name and Address Organization Details Last Updated DateTime 4 13175.5 4 g 97 % 97 % 65 /min 114 mm[Hg] 71 mm[Hg] James Salazar LPN [address] 4 10:20:12 Date Recorded Body height Body mass index (BMI) Body weight Pain severity - 0-10 verbal numeric rating [Score] - Reported Provider Name and Address Organization Details Last Updated DateTime 11/19/2023 162.56 cm 37 kg/m2 29923.16 g 0 Umair Navarro LPN [address] 11/19/2023 10:11:46 Social History Question Answer Notes LastModified by Organizat ion Details LastModified Time Tobacco Smoking Status Former Smoker SHABNAM Smith [address] 11/19/2023 10:12:26 What Is Your Level Of Alcohol Consumption? None Information not available 09/11/2023 What Is Your Level Of Caffeine Consumption? Occasional Information not available 09/11/2023 When Did You Quit Smoking? 1-5year[place]incel [place] Information not available 11/19/2023 What Was The Date Of Your Most Recent Tobacco Screening? 11/19/2023 Information not available 11/19/2023 Do You Use Any Illicit Or Recreational Drugs? No Information not available 09/11/2023 Has Tobacco Cessation Counseling Been Provided? No Information not available 11/19/2023 Do You Or Have You Ever Used Any Other Forms Of Tobacco Or Nicotine? No Information not available 11/19/2023 Sex: Unknown Functional Status None recorded. Mental Status None recorded. Family History Nothing Reported. Medical History No medical history recorded. Past Encounters Encounter ID Performer Location Encounter Start Date Encounter Closed Date Diagnosis/Indication Diagnosis SNOMED-CT Code Diagnosis ICD10 Code Diagnosis Note [id number] SUSHILA WHITTINGTON NP [facility] [address] [place] [id number] 09/11/2023 10:09:03 09/11/2023 12:41:42 Gastroesophageal reflux disease without esophagitis 296642702 K21.9 Esophageal dysphagia 408 [address]13 R13.19 [id number] SUSHILA WHITTINGTON NP [facility] [address] [place] [id number] 11/19/2023 09:44:06 11/19/2023 10:22:01 Dysphagia 50349177 R13.10 Gastroesop hageal reflux disease without esophagitis 623486145 K21.9 Health Concerns Section Related Observation LastModified by Organization Detai ls LastModified Time None Recorded Concern Status LastModified by Organization Details LastModified Time None Recorded Advance Directives Directive None Recorded Payers Encounter Date Sequence Insurance Name Policy Number Policy Licona Covered Member ID Licona Member ID Guarantor Name 09/11/2023 1 [place] Ede Miaer [id number] Ede Maier 11/19/2023 1 [place] Ede Maier [id number] Ede Maier Notes Date Note Type Note Provider Name and Address Organization Details Recorded Time 09/11/2023 text/html 63-year-old male presents to the clinic for consultation regarding GERD. He is currently taking nexium granules 20mg PO BID, he does not feel that this is working well. He states that he will wake up at night refluxing and coughing from breathing it in. He had an EGD and Colonoscopy performed at [facility] in [place] approx 14 months ago. He states that they told him that everything was well. They did not dilate his esophagus at this time but he states that he has had his esophagus dilated before. He does complain of dysphagia today. He complains of lower abdominal pain, he states that his BMs are normal. He has a family history of colon cancer in his mother, he had a colonoscopy last year and one polyp was removed, he was told to repeat in 5 years Impression:1. GERD2. Dysphagia3. History of esophageal stricture with dilation4. History of neurosyphilis, treated5. Previous EGD and Colonoscopy one year ago at [place], dilation was not done6. History of schizophrenia and depression7. Family history of colon cancer in mother Recommendations:1. Schedule EGD at patient's earliest convenience2. Repeat Colonoscopy in 4 years3. Attempt to obtain records from endoscopes at [place] last year4. D/c nexium granules BID5. Begin omeprazole 40mg PO BID, 30 minutes prior to am and pm meals6. Begin Famotidine at hs7. Anti-reflux precautions/ do not eat 3 hours prior to bedtime8. Follow up 2 weeks post EGD SUSHILA WHITTINGTON NP [address] [facility], [place], [address], [facility] [place] [facility] [place] 09/11/2023 12:09:30 11/19/2023 text/html 63-year-old male presents to the clinic via telehealth for follow up after having an EGD. He states that his dysphagia has resolved, s/p dilation and that his GERD is much better managed. I counseled him not to eat 3 hrs prior to lying down and to avoid trigger foods. He had an EGD and Colonoscopy performed at [facility] in [place] approx 14 months ago. He states that they told him that everything was well. They did not dilate his esophagus at this time but he states that he has had his esophagus dilated before. He does complain of dysphagia today. He complains of lower abdominal pain, he states that his BMs are normal. He has a family history of colon cancer in his mother, he had a colonoscopy last year and one polyp was removed, he was told to repeat in 5 years. LOC was 5 minutes Impression:1. GERD2. Dysphagia3. History of esophageal stricture with dilation4. History of neurosyphilis, treated5. Previous EGD and Colonoscopy one year ago at [place], dilation was not done6. History of schizophrenia and depression7. Family history of colon cancer in mother Recommendations:1. Repeat Colonoscopy in 4 years3. Attempt to obtain records from endoscopes at [place] last year4. Begin omeprazole 40mg PO BID, 30 minutes prior to am and pm meals5. Begin Famotidine 40mg at hs6. Anti-reflux precautions/ do not eat 3 hours prior to bedtime7. Follow up as needed based on clinical course SUSHILA WHITTINGTON NP [address] [facility], [place], [address], [facility] [place] 11/19/2023 11:01:13
--- OUTSIDE RECORDS SUMMARY | 2024-08-05 05:33 | XMS_ITS | Encounter Summary ---
Author Organization [facility] Address [address] [place] [address] Care Team Providers Care Roller Name Role Phone Marty Cunningham MD Primary Care Provider [phone] Encounter Details Date Type Department Care Team (Late st Contact Info) Description 05/23/2024 9:40 AM RECREATION AIDE Office Visit [facility] - Primary Care [address] [place] [address] Swati Avelar PA [address] [place] [address] Annual wellness visit (Primary Dx) Social History Tobacco Use Types Packs/Day Years Used Date Smoking Tobacco: Unknown Alcohol Use Standard Drinks/Week Comments Defer 0 (1 standard drink = 0.6 oz pur e alcohol) Sex and Gender Information Value Date Recorded Sex Assigned at Not on file Gender Identity Not on file Sexual Orientation Not on file documented as of this encounter Progress Notes * GIOVANNA Masterson - 05/23/2024 9:40 AM CST Subjective: Ede Maier is a 63 y.o. male who presents for a Medicare Annual Wellness Visit. Patient was seen in person at [facility]. Care Team Reviewed with Patient and Updated: yes Depression Screen (Note: if answer to either of the following is Yes , then a more complete depression screening is indicated) Q1: Over the past two weeks, have you felt down, depressed or hopeless? no Q2: Over the past two weeks, have you felt little interest or pleasure in doing things? no Activities of Daily Living / Functional Screening In your present state of health, do you have any difficulty performing the following activities?: Preparing food and eating: yes - staff prepared Bathing yourself: yes - staff assisted Getting dressed: no Using the toilet: no Moving around from place to place: ambulates independently General activities of daily living: yes In the past year have you fallen or had a near fall: no recent falls Current exercise habits: The patient does not participate in regular exercise at present. Hearing screening: hearing is normal to conversation Vision difficulties: yes Diet/Nutrition discussed: yes Fall Risks Fall risks discussed with patient. Patient advised on the following: wearing proper footwear and becautious of broken or uneven steps Home Safety Home Safety not discussed with patient. Patient advised on the following: NH resident Cognitive Ability oriented to person, place and time Advanced Directive: Advanced Directive Planning: full code The following portions of the patient's history were reviewed and updated as appropriate: allergies, current medications, past medical history, problem list, care team, and Joint Commission screening. Review of Systems Pertinent items are noted in HPI. Objective: There were no vitals taken for this visit. There is no height or weight on file to calculate BMI. Constitutional: Appearance: He is obese. Cardiovascular: Rate and Rhythm: Normal rate and regular rhythm. Pulmonary: Effort: Pulmonary effort is normal. Breath sounds: Normal breath sounds. Musculoskeletal: Comments: Independent in mobility Neurological: Mental Status: He is alert. Mental status is at baseline. Comments: Hand tremors Psychiatric: Comments: Episodes of anxiety Patient Active Problem List Diagnosis Gastroesophageal reflux disease without esophagitis Bipolar affective disorder, currently active ([facility]) Status post left rotator cuff repair Essential tremor Slow transit constipation Assessment: Diagnosis Plan 1. Annual wellness visit Plan: Patient counseling and education was provided regarding any observed risk factors, and issues discussed above. Patient's health maintenance was reviewed and any concerns were addressed. Counseling and education was also provided regarding appropriate screenings and preventive services, including: Other Screening / Preventative Services: Pneumococcal vaccine Influenza vaccine Depression Intervention Needed Based On Screening: based on screening test today, there is no follow up needed for depression Patient instructions discussed with the patient. EATION AIDE documented in this encounter Plan of Treatment Upcoming Encounters Date Type Department Care Team (Late st Contact Info) Description 08/26/2024 9:25 AM CDT External Patient Visit [facility] [place] - Primary Care [address] [place] [address] Marty Cunningham MD [address] [place] [address] documented as of this encounter Visit Diagnoses Diagnosis Annual wellness visit- Primary documented in this encounter Additional Health Concerns Health Status Noted Date Alive and well 07/31/2023 Assessment Noted Time A fall risk assessment has been complete d for the patient 06/02/2024 4:07 PM RECREATION AIDE documented as of this encounter Care Teams Roller Relationship Specialty Start Date End Date Marty Cunningham MD [address] [place] [address] PCP - General Internal Medicine 05/17/22 documented as of this encounter
--- OUTSIDE RECORDS SUMMARY | 2024-08-05 05:33 | XMS_ITS | Clinical Summary ---
Author Organization [facility] Address [address] [place] [address] Care Team Providers Care Boatbuilder Apprentice Wood Name Role Phone Marty Cunningham MD Primary Care Provider [phone] Allergies Active Allergy Reactions Criticality Noted Date Comments Acetaminophen Unknown 05/23/2022 Tuberculin Ppd Unknown 05/23/2022 Codeine Unknown 05/23/2022 Diphenhydramine Unknown 05/23/2022 Medications Medication Sig Dispensed Refills Start Date End Date Status menthol 4 % gel Apply topically every 8 (eight) hours as needed for mild pain. Active venlafaxine (EFFEXOR-XR) 150 MG 24 hr capsule Take 150 mg by mouth in the morning. Active folic acid (FOLVITE) 1 MG tablet Take 1 mg by mouth in the morning. Active loperamide (IMODIUM A-D) 2 mg tablet Take 2 mg by mouth as needed for diarrhea. Take 2 tablets after first loose stool then 1 tablet after each looses stool. Max 4 tablets in 24 hours. Active naloxone 2 mg/2 mL syringe kit Inject 1 Syringe as directed as needed for opioid reversal. Active propranoloL (INDERAL) 40 MG tablet Take 40 mg by mouth in the morning and 40 mg in the evening. Active QUEtiapine (SEROQUEL) 200 MG tablet Take 200 mg by mouth nightly. Active traZODone (DESYREL) 100 MG tablet Take 100 mg by mouth nightly. Active thiamine, vitamin B1, 100 MG tablet Take 100 mg by mouth in the morning. Active Active Problems Problem Noted Date Diagnosed Date B12 deficiency 07/30/2024 Slow transit constipation 03/02/2023 Status post left rotator cuff repair 08/13/2022 Essential tremor 08/13/2022 Gastroesophageal reflux disease without esophagi tis Assessment & Plan (05/29/2022 7:04 AM RECEPTION CLERK): Will change omeprazole to Nexium 40 mg daily. Reflux precautions. Monitor clinically. Bipolar affective disorder, currently active Assessment & Plan (05/29/2022 7:05 AM RECEPTION CLERK): Reviewed current medications. Will continue on his Seroquel to 100 mg. Will continue follow-up with Psychiatry. Monitor for side effect. Encounters Date Type Department Care Team Description 05/23/2024 9:40 AM RECEPTION CLERK Office Visit [facility] - Primary Care [address] [place] [address] Swati Avelar PA Annual wellness visit (Primary Dx) 05/23/2024 Travel from Last 3 Months Immunizations Name Administration Dates Next Due Michelle Sars-CoV-2 Vaccination 09/23/2020 influenza, injectable, quadr ivalent, preservative free (AFLURIA/FLUARIX/FLULAVAL/FLUZONE) 05/07/2023,04/10/2022 pneumococcal conjugate PCV 20 (PREVNAR 20) 08/04 Social History Tobacco Use Types Packs/Day Years Used Date Smoking Tobacco: Unknown Tobacco Cessation:Counseling Given: Not Answered Alcohol Use Standard Drinks/Week Comments Defer 0 (1 standard drink = 0.6 oz pur e alcohol) PHQ-2 Answer Date Recorded PHQ-2 Score 0 07/01/2024 Sex and Gender Information Value Date Recorded Sex Assigned at Not on file Gender Identity Not on file Sexual Orientation Not on file Last Filed Vital Signs Vital Sign Reading Time Taken Comments Blood Pressure 120/72 07/29/2024 6:24 AM RECEPTION CLERK Pulse 61 07/29/2024 6:24 AM RECEPTION CLERK Temperature 36.2 ??C (97.2 ??F) 07/29/2024 6:24 AM CS T Respiratory Rate 17 07/29/2024 6:24 AM RECEPTION CLERK Oxygen Saturation 95% 07/29/2024 6:24 AM RECEPTION CLERK Inhaled Oxygen Concentration - - Weight 103 kg (226 lb 6.4 oz) 07/29/2024 6:24 AM RECEPTION CLERK Height 160.8 cm (5' 3.3 ) 07/29/2024 6:24 AM RECEPTION CLERK Body Mass Index 39.73 07/29/2024 6:24 AM RECEPTION CLERK Plan of Treatment Upcoming Encounters Date Type Department Care Team (Late st Contact Info) Description 08/26/2024 9:25 AM CDT External Patient Visit [facility] - Primary Care [address] [place] [address] Marty Cunningham MD [address] [facility] [address] [place] [address] Health Maintenance Due Date Last Done Comments Td, Tdap Vaccines Adult 1981 Colonoscopy 09/06/2007 Shingrix (ZOSTER RECOMBINANT ) (1 of 2) 2012 Influenza Vaccination (#1) 01/17/202405/07, 04/10/2022 COVID-19 Vaccine (2 - 2023-2 5 season) 2024 09/23/2020 Annual Wellness 05/23/2025 05/23/2024, 05/23/2024 RSV 60+ (1 - 1-dose 75+ series) 2037 Pneumococcal Vaccine: 50+ Years Completed 08/04/2022 HIB Vaccines Aged Out No longer eligi ble based on patient's age to complete this topic HPV Vaccines Aged Out No longer eligi ble based on patient's age to complete this topic Hepatitis A Vaccines Aged Out No long er eligible based on patient's age to complete this topic Hepatitis B Vaccines Aged Out No long er eligible based on patient's age to complete this topic IPV Vaccines Aged Out No longer eligi ble based on patient's age to complete this topic Meningococcal Vaccines Aged Out No lo nger eligible based on patient's age to complete this topic RSV Mab Nirsevimab (Beyfortu s) <20 months Aged Out No longer eligible b ased on patient's age to complete this topic Rotavirus Vaccines Aged Out No longer eligible based on patient's age to complete this topic Care Teams Boatbuilder Apprentice Wood Relationship Specialty Start Date End Date Marty Cunningham MD [address] [facility] [address] [place] [address] PCP - General Internal Medicine 05/17/22
--- OUTSIDE RECORDS SUMMARY | 2024-08-05 05:33 | XMS_ITS | Clinical Summary ---
Author Organization [facility] Address [address] [place] [address] Phone Care Team Providers Care Brick Kiln Worker Name Role Phone Unavailable Primary Care Provider Unavailabl e Allergies No known active allergies Medications No known medications Active Problems Problem Noted Date Diagnosed Date Essential tremor 01/10/2024 Encounters Date Type Department Care Team Description 07/10/2024 9:02 AM PLEATING SUPERVISOR - 07/10/2024 11:59 PM PLEATING SUPERVISOR Hospital Encounter [facility] Neurology [facility] [address] [place] [id number] Lb Samson MD Discharge Disposition: Home or Self Care from Last 3 Months Social History Tobacco Use Types Packs/Day Years Used Date Smoking Tobacco: Former Cigarettes Alcohol Use Standard Drinks/Week Comments Yes 83.3 (1 standard drink = 0.6 oz pure alcohol) Sex and Gender Information Value Date Recorded Sex Assigned at Not on file Legal Sex Male 2:37 AM PLEATING SUPERVISOR Gender Identity Not on file Sexual Orientation Not on file Last Filed Vital Signs Vital Sign Reading Time Taken Comments Blood Pressure 153/81 07/10/2024 9:09 AM PLEATING SUPERVISOR Pulse 76 07/10/2024 9:09 AM PLEATING SUPERVISOR Temperature 36.9 ??C (98.4 ??F) 07/10/2024 9:09 AM CS T Respiratory Rate 20 01/10/2024 9:17 AM CDT Oxygen Saturation 97% 01/10/2024 9:17 AM CDT Inhaled Oxygen Concentration - - Weight 101.8 kg (224 lb 6.4 oz) 07/10/2024 9:09 AM PLEATING SUPERVISOR Height 165.1 cm (5' 5 ) 07/10/2024 9:09 AM PLEATING SUPERVISOR Body Mass Index 37.34 07/10/2024 9:09 AM PLEATING SUPERVISOR Plan of Treatment Upcoming Encounters Date Type Department Care Team (Late st Contact Info) Description 01/22/2025 9:15 AM CDT Appointment [facility] [address] [place] [phone] Lb Samson MD [address] [place] [address] Health Maintenance Due Date Last Done Comments Pre-Diabetes and Diabetes Screening 1960 DTAP/TDAP/TD VACCINES (1 - Tdap) 1981 COLORECTAL SCREENING 09/06/2007 Colorectal Cancer Screening 09/06/2007 FIT-DNA Q 3 years 09/06/2007 FIT/FOBT Q 1 year 09/06/2007 Flex Sig/CT Colonography Q 5 years 09/06/2007 ZOSTER VACCINE (1 of 2) 2012 RSV VACCINE (60+ or ) (1 - Risk 60-74 years 1-dose series) 2022 INFLUENZA VACCINE (#1) 2024 05/07/2023, 2021 COVID-19 Vaccine (2 - season) 02/17/202401/2021 Insurance MEDICAID [place]
--- OUTSIDE RECORDS SUMMARY | 2024-08-05 05:33 | XMS_ITS | Encounter Summary ---
Author Organization [facility] Address [address] [place] [address] Care Team Providers Care Control Equipment Electrician Name Role Phone Unavailable Primary Care Provider Unavailabl e Reason for Visit * Reason Comments ET Encounter Details Date Type Department Care Team (Latest Contact Info) Description 07/10/2024 9:02 AM SUPERVISOR CONTACT AND SERVICE CLERKS - 07/10/2024 11:59 PM SUPERVISOR CONTACT AND SERVICE CLERKS Hospital Encounter [facility] Neurology [facility] [address] [place] [address] Lb Samson MD [address] [place] [phone] Discharge Disposition: Home or Self Care Social History Tobacco Use Types Packs/Day Years Used Date Smoking Tobacco: Former Cigarettes Alcohol Use Standard Drinks/Week Comments Yes 83.3 (1 standard drink = 0.6 oz pure alcohol) Sex and Gender Information Value Date Recorded Sex Assigned at Not on file Legal Sex Male 2:37 AM SUPERVISOR CONTACT AND SERVICE CLERKS Gender Identity Not on file Sexual Orientation Not on file documented as of this encounter Last Filed Vital Signs Vital Sign Reading Time Taken Comments Blood Pressure 153/81 07/10/2024 9:09 AM SUPERVISOR CONTACT AND SERVICE CLERKS Pulse 76 07/10/2024 9:09 AM SUPERVISOR CONTACT AND SERVICE CLERKS Temperature 36.9 ??C (98.4 ??F) 07/10/2024 9:09 AM CS T Respiratory Rate - - Oxygen Saturation - - Inhaled Oxygen Concentration - - Weight 101.8 kg (224 lb 6.4 oz) 07/10/2024 9:09 AM SUPERVISOR CONTACT AND SERVICE CLERKS Height 165.1 cm (5' 5 ) 07/10/2024 9:09 AM SUPERVISOR CONTACT AND SERVICE CLERKS Body Mass Index 37.34 07/10/2024 9:09 AM SUPERVISOR CONTACT AND SERVICE CLERKS documented in this encounter Progress Notes * Lb Samson MD - 07/10/2024 9:30 AM CST Ede Maier is a 63 y.o. 1960 male returning to clinic for a follow-up appointment. He has been followed up in the past for ET , last seen in December. He is now on primidone 150 at hs in addition to the propranolol 40mg BID. Also on seroquel and trazodone, and effexor. Pt feels tremors are less. Still with occ dizziness Past Medical History: Diagnosis Date Anxiety Depression Hepatitis C Past Surgical History: Procedure Laterality Date HX ABDOMINAL SURGERY PT DENIES RELEVANT SURGICAL HISTORY No family history on file. reports that he has quit smoking. He does not have any smokeless tobacco history on file. He reports current alcohol use of about 83.3 standard drinks of alcohol per week. He reports current drug use. No Known Allergies No outpatient medications have been marked as taking for the 07/10/24 encounter (Hospital Encounter)with Lb Samson MD. Review of systems: Constitutional: negative for fever, chills, weight gain or weight loss Cardiovascular: negative for palpitations, chest pain, dyspnea Respiratory: negative for cough, sputum, shortness of breath PE Vitals: 07/10/24 0909 BP: (!) 153/81 BP Location: Left arm Patient Position (BP): Sitting Pulse: 76 Temp: 98.4 ??F (36.9 ??C) TempSrc: Temporal Weight: 101.8 kg (224 lb 6.4 oz) Height: 5' 5 (1.651 m) General appearance: NAD Neuro: A&O x3, Motor: Nl tone, Nl bulk, 5/5 strength throughout Coordination: mild ET with FTN, right greater than left Gait: normal Assessment/Plan: ICD-10-CM ICD-9-CM 1. Essential tremor G25.0 333.1 Cont on the primidone and propranolol RV 6 mos No orders of the defined types were placed in this encounter. RVISOR CONTACT AND SERVICE CLERKS documented in this encounter Plan of Treatment Upcoming Encounters Date Type Department Care Team (Late st Contact Info) Description 01/22/2025 9:15 AM CDT Appointment [facility] Neurology [facility] [address] [place] [phone] Lb Samson MD [address] [place] [phone] documented as of this encounter Visit Diagnoses Diagnosis Essential tremor- Primary Essential and other specified forms of tremor documented in this encounter
[2024-08-05] MEDS: lisinopril 10 mg Tablet PO (08:05)
[2024-08-05] MEDS: aspirin 81 mg EC Tablet PO (08:05)
[2024-08-05] MEDS: metoprolol tartrate 25 mg Tablet PO ×2 (08:05→20:02)
[2024-08-05] MEDS: venlafaxine ER (24HR) 150 mg Capsule PO (08:05)
[2024-08-05] MEDS: clopidogrel 75 mg Tablet PO (08:05)
--- NOTE | 2024-08-05 08:09 | ECG_ITS ---
Arigo Test Date: 2024-08-05 Pat Name: Ede Maier Department: Room: ICU08 Gender: Male Inspector Cold Working: : 1960 Requested By: Cecil Calixto Order Number: [id number] Reading MD: BRANDY DOMINGUEZ Measurements Intervals [place] Rate: 80 P: 65 VT: 181 QRS: 29 QRSD: 90 T: 72 QT: 388 QTc: 450 Interpretive Statements SINUS RHYTHM INDETERMINATE AXIS LOW QRS VOLTAGE IN PRECORDIAL LEADS [QRS DEFLECTION < 1.0 mV IN CHEST LEADS] ANTEROLATERAL MYOCARDIAL INFARCTION , PROBABLY RECENT [40+ ms Q WAVE IN I/aVL/V3-V6] Compared to ECG 08/05/2024 02:13:42 Indeterminate axis now present Myocardial infarct finding still present Electronically Signed On 08-12-2024 23:56:56 SILK TOP HAT BODY MAKER by BRANDY DOMINGUEZ [email or web address]
--- NOTE | 2024-08-05 08:10 | PC.PHAR ---
patient is from [facility]
--- NOTE | 2024-08-05 08:26 | PC.NURSE ---
Patient C/O 03/27 chest pain, no EKG changes noted, meds per AUG. Dr. Weir notifed
--- NOTE | 2024-08-05 11:07 | PM.PN ---
Subjective Subjective: Patient still has some chest pain. Says improved as compared to yesterday Vitals/I&O/Wt Last Vital Signs Temp 98.1 F 08/04/24 21:23 Pulse 85 08/05/24 10:45 Resp 18 08/05/24 10:45 BP 115/80 08/05/24 10:45 Pulse Ox 98 08/05/24 10:45 O2 Del Method Room Air 08/05/24 06:00 08/04/24 08/05/24 08/05/24 22:59 06:59 14:59 Intake Total 6.175 / 6.175 353.50 / 359.675 22.2 / 22.2 Balance 6.175 / 6.175 353.50 / 359.675 22.2 / 22.2 Weight last 48 hrs Weight 221 lb 8 oz Weight 222 lb Weight 220 lb Physical Exam Narrative: GENERAL: Patient is alert HEART: Regular S1 and S2. No murmur, rub or gallop. LUNGS: Clear to auscultate bilaterally. CENTRAL NERVOUS SYSTEM: Grossly nonfocal. EXTREMITIES: Lower extremities without edema bilaterally. Data 08/05/24 03:20 08/05/24 03:20 A&P Assessment and plan (1) ST elevation myocardial infarction (STEMI): (2) Hepatitis C: Plan Patient presented with acute anterior wall STEMI and underwent successful revascularization of LAD with 2 stents. 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 On nitro gtt. Can downtitrate that. If pain continues, can obtain CTA Continue aspirin, plavix, high intensity statin therapy and beta bulmaro ECHO shows moderate to severely reduced LV systolic function Medicine team on board. Appreciate recommendations PDMP PDMP Reviewed: Not Reviewed Attestations Medical Necessity Statement*: Care expected to cross 2 midnights. Patient had presented with anterior wall STEMI and had PCI last night. Coding Level of Care Code Acute Code for [facility] Diagnoses ST elevation myocardial infarction (STEMI) I21.3 Hepatitis C B19.20
--- NOTE | 2024-08-05 12:57 | XR_ITS ---
WS: [id number] Exam: XR chest 1V portable [id number] Date/Time of Exam: 08/05/2024 1:27 PM Reason For Exam: Post PICC insertion Comparison 08/04/2024. Right-sided PICC line has been placed and ends at the cavoatrial junction in good position. The lungs are clear and fully inflated. Normal cardiomediastinal silhouette and regional bony elements. XR/XR chest 1V portable [id number] IMPRESSION: 1. Right-sided PICC line ending at the cavoatrial junction. The chest is otherw ise negative.
[2024-08-05] MEDS: ALPRAZolam 0.5 mg Tablet PO (13:07)
[2024-08-05] MEDS: nitroglycerin drip 50 MG/250 ML PREMIX 18 MG IV (13:54)
--- NOTE | 2024-08-05 13:56 | PICC.NOTE ---
Double lumen PICC placed to right brachial vein. Referred to vascular access nurse for PICC placement due to poor access. Risks and benefits discussed and informed consent obtained from pt. Right arm assessed with right brachial vein measuring 3.5 mm, straight, and apparent best choice for placement. Using sterile technique and MST, right brachial vein accessed x 1 stick. Mid-arm circumference measured 10 cm from right AC 36 cm. Trimmed cath 43 cm with 1 cm external length noted. CXR shows tip in distal SVC, in good position for use per radiologist. Line secured with stat-lock. Insertion site covered with Secureport IV, Biopatch and TSM. Report given to bedside nurse, CHEY [place].
[2024-08-05] MEDS: HYDROMORPHONE HCL 0.5 MG/0.5 ML INJ IVP (18:00)
--- NOTE | 2024-08-05 18:25 | CTR_ITS ---
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 Exam focused on the arteries. 3D rendering (Not supervised by radiologist): MIP and/or 3D reconstructed images were created by the technologist. Radiation optimization: All CT scans at this facility use at least one of these dose optimization techniques: automated exposure control; mA and/or kV adjustment per patient size (includes targeted exams where dose is matched to clinical indication); or iterative reconstruction. Contrast material: OMNIPAQUE 350; Contrast volume: 106 ml; Contrast route: INTRAVENOUS (IV); COMPARISON: CR XR chest 1V portable [id number] 08/05/2024 1:37 PM RADIATION DOSE METRICS: Total DLP (mGy-cm): 520.84 FINDINGS: Pulmonary arteries: Normal. No pulmonary emboli. Aorta: Unremarkable. No aortic aneurysm. No aortic dissection. Lungs: Bilateral dependent airspace infiltrates. Pleural spaces: Unremarkable. No pneumothorax. No pleural effusion. Heart: Cardiomegaly. Trace pericardial effusion. Coronary arteries: Coronary artery atherosclerotic calcifications. Lymph nodes: Several subcentimeter short axis nonspecific mediastinal lymph nodes. Diaphragm: Large hiatal hernia. Gallbladder and biliary ducts: Biliary sludge. Bones/joints: Unremarkable. No acute fracture. Soft tissues: Unremarkable. CT/CT angio chest PE protcl [id number] IMPRESSION: 1. Negative for pulmonary embolus. 2. Coronary artery atherosclerotic calcifications. 3. Cardiomegaly. 4. Trace pericardial effusion. 5. Bilateral dependent airspace infiltrates. 6. Large hiatal hernia. 7. Biliary sludge. 8. Several subcentimeter short axis nonspecific mediastinal lymph nodes.
--- NOTE | 2024-08-05 18:26 | XRR_ITS ---
PROCEDURE INFORMATION: Exam: XR Left Shoulder Exam date and time: 08/05/2024 6:38 PM Age: 63 years old Clinical indication: Pain; Shoulder; Left; Prior surgery; Surgery date: 6+ months; Surgery type: Lt rotator cuff; Additional info: Pain left shoulder TECHNIQUE: Imaging protocol: Radiologic exam of the left shoulder. Views: 2 or more views. COMPARISON: CR XR shoulder LT min 2V* [id number] 05/02/2023 10:35 AM FINDINGS: Bones/joints: Normal. Soft tissues: Normal. XR/XR shoulder LT min 2V* [id number] IMPRESSION: No acute findings.
--- NOTE | 2024-08-05 18:27 | P.PN_ITS ---
Subjective 2 Subjective: consulted overnight for pain mangement, Patient continues to c/o persisting chest discomfort in mid chest not adequately relived by current pain regimen Vitals/I&O/Wt Last Vital Signs Temp 98.1 F 08/04/24 21:23 Pulse 88 08/05/24 16:30 Resp 17 08/05/24 16:30 BP 106/69 08/05/24 16:30 Pulse Ox 99 08/05/24 16:30 O2 Del Method Room Air 08/05/24 06:00 08/05/24 08/05/24 08/05/24 06:59 14:59 22:59 Intake Total 353.50 / 359.675 122.4 / 122.4 Balance 353.50 / 359.675 122.4 / 122.4 Weight last 48 hrs Weight 100.471 kg Weight 100.698 kg Weight 99.79 kg Data 08/05/24 03:20 08/05/24 03:20 A&P Assessment and plan (1) ST elevation myocardial infarction (STEMI): (2) Alcohol use disorder: (3) Mild benzodiazepine use disorder: (4) Neurosyphilis: Plan STEMI status post PCI 2 stents in LAD Right groin access without any complications Patient seems very anxious I will continue his Seroquel dose along with morphine and as needed Xanax Right groin access to be removed as per the protocol Wean off nitroglycerin drip overnight For headache use Tylenol Given morphine 2 mg on as-needed basis as well Continue Protonix Will request labs for the morning For history of depression continue Effexor Full code Cardiac diet For 2 stents in the LAD will add dual antiplatelet therapy, aspirin and Plavix, high intensity statins add lisinopril as well 08/05/24: Continues to c/o persisting pain in the central chest. S/p stent placement yesterday. Discussed case with cardiology- less likely cardiac origin at this time. Nitro Gtt continues at 60/hr. Patient has a h/o left shoulder AC joint arthritis and rotator cuff tear however has been pain free for over [address] [facility] confirms he has not complained of pain until last night. He is not chronically on any pain medication. Will perform CTA chest and X ray shoulder to further assess cause of pain- to exclude PE vs dissection as cause of persisting pain. Add hydrocodone-APAP every 4 hrs prn, increase prn dilaudid dosing PDMP PDMP Reviewed: Not Reviewed Attestations 2 Medical Necessity Statement*: per admitting Coding Level of Care Code Acute Code for [facility] Fwd Diagnoses ST elevation myocardial infarction (STEMI) I21.3 Alcohol use disorder F10.90 Mild benzodiazepine use disorder F13.10 Neurosyphilis A52.3
--- NOTE | 2024-08-05 18:39 | PC.NURSE ---
R groin venous sheath removed
[2024-08-05] MEDS: HYDROcodone-acetaminophen 5-325 mg Tablet 1 TAB PO (19:04)
[2024-08-05] MEDS: atorvastatin 40 mg Tablet 80 MG PO (20:01)
[2024-08-05] MEDS: quetiapine 100 mg Tablet PO (20:01)
[2024-08-05] MEDS: iohexol 350 mg/mL 500 mL Btl (per mL) IV (21:17)
[2024-08-05] MEDS: norepinephrine 4 MG/250 ML BAG 7.5 MG IV (22:05)
--- NOTE | 2024-08-05 22:13 | PC.NURSE ---
Levophed Patient's blood pressure trending low; nitro drip weaned and turned off. Dr. Calixto notified; order received for levophed IV to titrate per protocol and to discontinue nitro drip. If further issues arise to contact hospitalist.
--- NOTE | 2024-08-05 23:32 | PC.NURSE ---
Blood Pressure Dr. Hernandez notified of increasing levophed dosage and continued chest pain. Order received for 1 L normal saline bolus.
[2024-08-06] VITALS (95 sets, daily range): BP systolic 78–157; BP diastolic 56–118; PULSE 68–112; RESP 12–31; TEMP 36.2–37.1; O2SAT 80–99
[2024-08-06] MEDS: sodium chloride 0.9% 1,000 ML 999 ML IV (00:02)
[2024-08-06] MEDS: HYDROcodone-acetaminophen 5-325 mg Tablet 1 TAB PO ×3 (00:46→20:16)
[2024-08-06 01:04] LABS: Troponin(5th) Baseline 7396 ng/L (0-15)
[2024-08-06 02:00] LABS: Troponin 5 2HR Delta -900 ABS# (0-10)
[2024-08-06 02:02] LABS: Troponin 5 2HR 6496 ng/L (0-15)
[2024-08-06] MEDS: HYDROMORPHONE HCL 0.5 MG/0.5 ML INJ IVP ×2 (03:31→17:05)
[2024-08-06 05:24] LABS: Basophils % 0.3 %; Eosinophils # 0.2 10^3/uL (0.0-0.8); Eosinophils % 2.1 %; Hematocrit 38.7 % (37-53); Lymphocytes # 1.6 10^3/uL (0.8-4.8); Lymphocytes % 16.4 %; Mean Corpuscular HGB Conc 33.3 g/dL (30-55); Mean Corpuscular Hemoglobin 28.8 pg (27-33); Mean Corpuscular Volume 86.4 fl (82-101); Mean Platelet Volume 9.4 fL (7.4-10.4); Monocytes % 10.1 %; Neutrophils # 6.98 10^3/uL (1.8-7.7); Neutrophils % 70.5 %; Nucleated Red Blood Cells % 0 %; Platelet Count 195 10^3/cmm (157-399); Red Blood Count 4.48 10^6/uL (3.85-5.65); Red Cell Distribution Width 12.4 % (12.1-15.1); White Blood Count 9.91 10^3/uL (3.29-11.43)
[2024-08-06 05:51] LABS: Alanine Aminotransferase 62 U/L (0-41); Albumin Level 3.7 g/dL (3.5-5.2); Alkaline Phosphatase 88 U/L (40-130); Blood Urea Nitrogen 10 mg/dL (8-23); Calcium 8.2 mg/dL (8.5-10.5); Carbon Dioxide 25 mmol/L (22-29); Chloride 97 mmol/L (98-107); Creatinine Clr Calc Pharmacy 118.6699; Globulin 2.9 g/dL (1.3-4.6); Glomerular Filtration Rate 114.6 mL/min (90-130); Glucose 125 mg/dL (65-115); Osmolality Calculated 283 mOsm/kg (285-295); Sodium 136 mmol/L (136-145); Total Bilirubin 1.1 mg/dL (0.15-1.2); Total Protein 6.6 g/dL (6.6-8.7)
[2024-08-06 05:54] LABS: Anion Gap 17.9 (5-19); Aspartate Amino Transferase 209 U/L (0-40); Potassium 3.9 mmol/L (3.5-5.1)
[2024-08-06 05:55] LABS: Troponin 5 6HR Delta -1801 ng/L (0-12)
[2024-08-06 05:57] LABS: Troponin 5 6HR 5595 ng/L (0-15)
[2024-08-06] MEDS: lisinopril 10 mg Tablet PO (08:31)
[2024-08-06] MEDS: TRAMadol 50 mg Tablet PO (08:31)
[2024-08-06] MEDS: aspirin 81 mg EC Tablet PO (08:31)
[2024-08-06] MEDS: clopidogrel 75 mg Tablet PO (08:31)
[2024-08-06] MEDS: venlafaxine ER (24HR) 150 mg Capsule PO (08:31)
[2024-08-06] MEDS: metoprolol tartrate 25 mg Tablet PO ×2 (08:37→10:18)
--- NOTE | 2024-08-06 10:33 | US_ITS ---
WS: [id number] RIGHT UPPER QUADRANT ULTRASOUND HISTORY: assess for cholecytsitis COMPARISON: CT 08/05/2024 Liver: 17.1 cm in length. Liver is top normal size. Mild diffuse coarse echotexture. No masses identified. No intrahepatic duct dilatation. Portal Vein: Normal hepatopetal flow with monophasic waveform. Gallbladder: Mildly hydropic gallbladder. No stones identified. Tiny amount of sludge layering within the gallbladder. No pericholecystic fluid. Gallbladder wall is top normal size. CBD: 0.5 cm Pancreas: Completely obscured by bowel gas. Right kidney: 11.7 cm in length. Normal size and echogenicity. No hydronephrosis or mass. Aorta and IVC: Unremarkable abdominal aorta and IVC. No ascites. US/US gall bladder [id number] IMPRESSION: 1. Small amount of gallbladder sludge. Gallbladder is slightly hydropic which may be due to to prolonged fasting. No gallbladder wall thickening or edema. 2. Hepatic steatosis.
--- NOTE | 2024-08-06 11:01 | PM.PN ---
Subjective Subjective: Overnight patient was taken off nitro drip. He was hypotensive and needed to be on Levophed until early this morning. Currently off Levophed when seen. States that pain is better compared to yesterday. Still 5 out of 10. Locates it in the left middle of the chest. Denies any change with deep inspiration. States that deep inspiration appears to help with the pain. Medications: Reviewed: Yes Vitals/I&O/Wt Last Vital Signs Temp 97.6 F 08/06/24 03:30 Pulse 94 08/06/24 10:00 Resp 19 H 08/06/24 10:00 BP 144/102 08/06/24 10:00 Pulse Ox 90 08/06/24 10:00 O2 Del Method Room Air 08/06/24 00:00 08/05/24 08/06/24 08/06/24 22:59 06:59 14:59 Intake Total 149.05 / 271.45 1539.250 / 1810.700 220 / 220 Output Total 825 / 825 470 / 1295 Balance -675.95 / -553.55 1069.250 / 515.700 220 / 220 Weight last 48 hrs Weight 101.423 kg Weight 100.471 kg Weight 100.698 kg Weight 99.79 kg Physical Exam Narrative: General: No acute distress, AO x3 HEENT: PERRLA, pupils bilaterally equal and reactive, pallors not present Chest: Normal vesicular breath sounds, no added sounds, equal good air entry bilaterally CVS: S1-S2 regular, no murmurs, no tachycardia, no gallops, no rubs Abdomen: Soft, nontender, no organomegaly, bowel sounds present Neuro: No focal deficits, no facial deformity, AO x3, power 5/5 in all limbs Data 08/06/24 05:05 08/06/24 05:05 A&P Assessment and plan (1) ST elevation myocardial infarction (STEMI): (2) Neurosyphilis: Plan STEMI status post PCI 2 stents in LAD Right groin access without any complications Patient seems very anxious I will continue his Seroquel dose along with morphine and as needed Xanax Right groin access to be removed as per the protocol Wean off nitroglycerin drip overnight For headache use Tylenol Given morphine 2 mg on as-needed basis as well Continue Protonix Will request labs for the morning For history of depression continue Effexor Full code Cardiac diet For 2 stents in the LAD will add dual antiplatelet therapy, aspirin and Plavix, high intensity statins add lisinopril as well 08/05/24: Continues to c/o persisting pain in the central chest. S/p stent placement yesterday. Discussed case with cardiology- less likely cardiac origin at this time. Nitro Gtt continues at 60/hr. Patient has a h/o left shoulder AC joint arthritis and rotator cuff tear however has been pain free for over 2 years. Nurse at [facility] confirms he has not complained of pain until last night. He is not chronically on any pain medication. Will perform CTA chest and X ray shoulder to further assess cause of pain- to exclude PE vs dissection as cause of persisting pain. Add hydrocodone-APAP every 4 hrs prn, increase prn dilaudid dosing August 06, 2024 States that pain is better compared to yesterday, however still rates it 5 out of 10. CTA of the chest was negative for any dissection or PE. Mild pericardial effusion noted on CT chest and EKG. Radiology report notes nonspecific infiltrates on CT chest, per personal interpretation no consolidation noted at this time. Respiratory viral panel was negative upon admission. Leukocytosis has resolved. Noted large hiatal hernia, patient reports years of reflux which may be contributing. Start Protonix 40 mg p.o. twice daily. Trial of GI cocktail x 1 now. Gallbladder sludge noted on CT chest. Dedicated right upper quadrant ultrasound to assess for any cholecystitis which may be contributing to the pain. There is no tenderness on exam therefore considered less likely at this time.. Patient reports a past medical history of hepatitis C which was treated with interferon several years ago. Per patient the hep C never cleared with treatment. Currently his LFTs are noted to have elevated AST and ALT. Chronic hep C is certainly a possibility. Check hep C viral load. Hep B core antibody status. HIV screening, patient consents to the same. Reported history of neurosyphilis for which patient is a long-term resident at [facility]term. He will need follow-up with infectious disease as outpatient for hep C treatment. PDMP PDMP Reviewed: Not Reviewed Attestations Medical Necessity Statement*: per admitting Coding Level of Care Code Acute Code for [facility] Fwd Diagnoses ST elevation myocardial infarction (STEMI) I21.3 Neurosyphilis A52.3
[2024-08-06] MEDS: thiamine 100 mg Tablet 50 MG PO (11:53)
[2024-08-06] MEDS: lidocaine 2% viscous 15 ML, aluminum-mag hydrox-simethicon 30 ML, sucralfate oral liq 1 GM PO (11:53)
[2024-08-06] MEDS: pantoprazole DR 40 mg Tablet PO ×2 (11:53→17:05)
[2024-08-06 12:04] LABS: Ammonia 36 umol/L (16-60)
[2024-08-06 12:18] LABS: HIV 1 & 2 Antibody Non-Reactive (Non-Reactiv); HIV 1 & 2 Antigen Non-Reactive (Non-Reactiv)
[2024-08-06 12:42] LABS: Hepatitis A Antibody IgM Non-Reactive (Nonreactive); Hepatitis B Core AB, Total Reactive (Nonreactive); Hepatitis B Surface AB 205.6 (11.5-1000); Hepatitis B Surface Antigen Non-Reactive (Nonreactive); Hepatitis C Virus Antibody Reactive (Nonreactive)
--- NOTE | 2024-08-06 14:35 | P.PN_ITS ---
Subjective 2 Subjective: Patient is doing better. Looks comfortable and is sleeping. Says has some left sided chest discomfort. Vitals/I&O/Wt Last Vital Signs Temp 97.7 F 08/06/24 12:03 Pulse 93 08/06/24 11:45 Resp 18 08/06/24 11:45 BP 125/93 08/06/24 11:45 Pulse Ox 95 08/06/24 11:00 O2 Del Method Room Air 08/06/24 00:00 08/05/24 08/06/24 08/06/24 22:59 06:59 14:59 Intake Total 149.05 / 271.45 1539.250 / 1810.700 220 / 220 Output Total 825 / 825 470 / 1295 Balance -675.95 / -553.55 1069.250 / 515.700 220 / 220 Weight last 48 hrs Weight 223 lb 9.6 oz Weight 221 lb 8 oz Weight 222 lb Weight 220 lb Physical Exam 2 Narrative: GENERAL: Patient is alert HEART: Regular S1 and S2. No murmur, rub or gallop. LUNGS: Clear to auscultate bilaterally. CENTRAL NERVOUS SYSTEM: Grossly nonfocal. EXTREMITIES: Lower extremities without edema bilaterally. Data 08/06/24 05:05 08/06/24 05:05 A&P Assessment and plan (1) ST elevation myocardial infarction (STEMI): (2) Hepatitis C: (3) Congestive heart failure: Plan Patient presented with acute anterior wall STEMI and underwent successful revascularization of LAD with 2 stents. Atypical chest pain improving. Overnight required levophed. Now off of it. Uptitrate metoprolol. Continue aspirin and plavix. High intensity statin therapy ECHO shows moderate to severely reduced LV systolic function. Medicine team on board. Appreciate recommendations. PDMP PDMP Reviewed: Not Reviewed Attestations 2 Medical Necessity Statement*: Care expected to cross 2 midnights. Patient had PCI of LAD. Improving. Coding Level of Care Code Acute Code for [facility] Fw Diagnoses ST elevation myocardial infarction (STEMI) I21.3 Hepatitis C B19.20 Congestive heart failure I50.9
[2024-08-06] MEDS: primidone 50 mg Tablet 150 MG PO (17:05)
--- NOTE | 2024-08-06 17:19 | ECG_ITS ---
Yours Florally Test Date: 2024-08-06 Pat Name: Ede Maier Department: Room: ICU08 Gender: Male Disposal Operator: : [id number] Requested By: Cecil Calixto Order Number: [id number] Reading MD: BRANDY DOMINGUEZ Measurements Intervals [place] Rate: 89 P: 65 CT: 166 QRS: -36 QRSD: 92 T: 95 QT: 373 QTc: 454 Interpretive Statements SINUS RHYTHM LEFT AXIS DEVIATION [QRS AXIS < -30] LOW QRS VOLTAGE IN PRECORDIAL LEADS [QRS DEFLECTION < 1.0 mV IN CHEST LEADS] ANTEROLATERAL MYOCARDIAL INFARCTION , PROBABLY RECENT [40+ ms Q WAVE IN I/aVL/V3-V6] ACUTE OH Compared to ECG 08/05/2024 08:10:59 Left-axis deviation now present Indeterminate axis no longer present Myocardial infarct finding still present Electronically Signed On 08-12-2024 23:55:21 CIGARETTE TESTER by BRANDY DOMINGUEZ [email or web address]
--- NOTE | 2024-08-06 17:19 | PC.NURSE ---
c/o chaest pain 10/10 and diaphretic, EKG WNL
[2024-08-06] MEDS: quetiapine 100 mg Tablet PO (20:16)
[2024-08-06] MEDS: atorvastatin 40 mg Tablet 80 MG PO (20:17)
[2024-08-06] MEDS: metoprolol tartrate 25 mg Tablet 50 MG PO (20:17)
[2024-08-07] VITALS (52 sets, daily range): BP systolic 80–156; BP diastolic 58–128; PULSE 74–103; RESP 14–26; TEMP 36.3–37.3; O2SAT 89–99
[2024-08-07 03:49] LABS: Alanine Aminotransferase 43 U/L (0-41); Albumin Level 3.6 g/dL (3.5-5.2); Alkaline Phosphatase 77 U/L (40-130); Anion Gap 14.8 (5-19); Aspartate Amino Transferase 109 U/L (0-40); Blood Urea Nitrogen 11 mg/dL (8-23); Calcium 8.7 mg/dL (8.5-10.5); Carbon Dioxide 27 mmol/L (22-29); Chloride 101 mmol/L (98-107); Creatinine Clr Calc Pharmacy 119.2668; Glomerular Filtration Rate 114.6 mL/min (90-130); Glucose 93 mg/dL (65-115); Osmolality Calculated 287 mOsm/kg (285-295); Potassium 3.8 mmol/L (3.5-5.1); Sodium 139 mmol/L (136-145); Total Bilirubin 0.9 mg/dL (0.15-1.2); Total Protein 6.6 g/dL (6.6-8.7)
[2024-08-07] MEDS: aspirin 81 mg EC Tablet PO (09:00)
[2024-08-07] MEDS: thiamine 100 mg Tablet 50 MG PO (09:00)
[2024-08-07] MEDS: pantoprazole DR 40 mg Tablet PO (09:01)
[2024-08-07] MEDS: clopidogrel 75 mg Tablet PO (09:01)
[2024-08-07] MEDS: lisinopril 10 mg Tablet 20 MG PO (09:01)
[2024-08-07] MEDS: TRAMadol 50 mg Tablet PO (09:01)
[2024-08-07] MEDS: venlafaxine ER (24HR) 150 mg Capsule PO (09:01)
[2024-08-07] MEDS: metoprolol tartrate 25 mg Tablet 50 MG PO (09:05)
--- NOTE | 2024-08-07 09:50 | XR_ITS ---
WS: [id number] Exam: XR chest 1V portable [id number] Date/Time of Exam: 08/07/2024 10:32 AM Reason For Exam: assess for pulm edema Comparison 08/05/2024. Comparison 08/05/2024. Right-sided PICC line courses cephalad and likely ends in the region of the internal jugular vein. This is a change since the last study. The lungs are clear. Normal cardiomediastinal silhouette. No pleural effusions. Signs of coronary artery stenting. Bony structures are intact. XR/XR chest 1V portable [id number] IMPRESSION: 1. Right-sided PICC line coursing cephalad most likely in the internal jugular vein. This is a change since the prior chest x-ray 08/05/2024. This finding was discussed by phone with Edwin, the patient's ICU nurse at 11:06 a.m. 08/07/2024. 2. No acute cardiopulmonary finding identified otherwise.
--- NOTE | 2024-08-07 10:05 | P.PN_ITS ---
Subjective 2 Subjective: Patient doing better this morning. He states his chest pain has improved significantly. He denies any orthopnea or shortness of breath. Blood pressure well-controlled at 119/85. He is taking aspirin and Plavix. Creatinine stable at 0.7. Vitals/I&O/Wt Last Vital Signs Temp 99.2 F 08/07/24 04:45 Pulse 94 08/07/24 09:16 Resp 25 H 08/07/24 09:16 BP 126/84 08/07/24 09:16 Pulse Ox 99 08/07/24 09:16 O2 Del Method Room Air 08/07/24 04:45 08/06/24 08/07/24 08/07/24 22:59 06:59 14:59 Intake Total 480 / 850 150 / 150 Output Total 375 / 975 Balance 480 / 250 -375 / -125 150 / 150 Weight last 48 hrs Weight 219 lb 5 oz Weight 223 lb 9.6 oz Physical Exam 2 Narrative: General: No apparent distress, healthy appearing, well nourished HENMT: normoceophalic Muskuloskeletal: Full ROM Lymphatic: no lymphedema noted Respiratory: Normal respiratory effort, clear to auscultation bilaterally throughout all lung you, no use of accessory muscles Cardio: No JVD, regular rate, regular rhythm, S1 S2 normal, no murmurs, peripheral pulses 2+ radial palpated bilaterally GI: Normal to inspection, nondistended Extremities: Full ROM, normal, normal capillary refill, no cyanosis or edema Neuro: Alert and oriented x4, no focal motor deficits Psych: Affect normal, denies suicidal ideation, mental status grossly normal Skin: Right femoral stick site clean, dry, intact, no s/s of hematoma Data 08/06/24 05:05 08/07/24 02:48 A&P Assessment and plan (1) ST elevation myocardial infarction (STEMI): (2) Hepatitis C: (3) Congestive heart failure: Plan Patient presented with acute anterior wall STEMI and underwent successful revascularization of LAD with 2 stents and balloon angioplasty of the diag. Atypical chest pain improving and nearly resolved. Continue metoprolol 50 BID. Continue aspirin and plavix. Liver function has improved. Will continue statin therapy. Monitor AST and ALT. ECHO shows moderate to severely reduced LV systolic function at 30-35%. Patient has agreed to life vest. This has been ordered. He appears euvolemic at this time. Medicine team on board. Appreciate recommendations. PDMP PDMP Reviewed: Not Reviewed Attestations 2 Medical Necessity Statement*: Patient stay expected to cross 2 midnights due to above defined care. Coding Level of Care Code Acute Code for [facility]g Fwd Diagnoses ST elevation myocardial infarction (STEMI) I21.3 Hepatitis C B19.20 Congestive heart failure I50.9
--- NOTE | 2024-08-07 11:09 | PC.NURSE ---
Radiology called that picc line is going into jugular vein, picc nurse to come to assess
--- NOTE | 2024-08-07 11:10 | XR_ITS ---
WS: [id number] Exam: XR chest 1V portable [id number] Date/Time of Exam: 08/07/2024 11:24 AM Reason For Exam: picc line position chage Comparison made with the prior study performed earlier on the same day at 1036 hours. Lungs are clear. Cardiomediastinal silhouette is unremarkable. No pleural effusions. Bony structures are intact. Again noted is a cephalad coursing right- sided PICC line probably ending in the internal jugular vein. XR/XR chest 1V portable [id number] IMPRESSION: 1. Right-sided PICC line coursing cephalad unchanged in appearance. No acute fi nding in the chest otherwise.
--- NOTE | 2024-08-07 11:26 | PC.NURSE ---
Patient to dc after life vest per Landy BLANDON
[2024-08-07 12:20] LABS: HEP C RNA Viral Load Quant 11200000 IU/mL (NOT DETECTED); HEP C RNA Viral Load Quant 7.05 Log IU/mL (NOT DETECTED)
[2024-08-07 13:16] LABS: RPR w(Moniotor) w/REFL Titer REACTIVE (NON-REACTIVE)
--- NOTE | 2024-08-07 13:20 | PC.NURSE ---
report called to [facility], PICC line removed. patient out of facility with [facility]
--- NOTE | 2024-08-07 15:59 | P.DS_ITS ---
<Statement entered by Cecil Calixto M.D - 08/08/24 21:26> Patient was evaluated and cared for in conjunction with an advanced practice practitioner. I personally examined the patient and reviewed the chart and all pertinent data including imaging, telemetry, and laboratory results. I discussed the patient in detail with the advanced practice practitioner. Please see their note for complete discharge summary, results and agreed upon plan of care for the patient. Patient feeling well. No chest pain. Will be discharged home on DAPT. Atypical chest discomfort has resolved. GENERAL: Patient is alert and oriented HEART: Regular S1 and S2 LUNGS: Clear to auscultation bilaterally EXTREMITIES: Lower extremities with no edema Discharge Providers Date of Admission: 08/04/24 21:20 Date of Discharge: August 07, 2024 Attending Provider at Admission: Cecil Calixto M.D Attending Provider at Discharge: Cecil Calixto M.D Consults: Dr. Boswell Primary Care Provider: Maribel Cunningham MD Diagnoses at Discharge Discharge Diagnosis (1) ST elevation myocardial infarction (STEMI): Status: Acute Qualifiers: Involved coronary artery: LAD coronary artery Qualified Code(s): I21.02 - ST elevation (STEMI) myocardial infarction involving left anterior descending coronary artery (2) Hepatitis C: Status: Acute Qualifiers: Viral hepatitis chronicity: unspecified Hepatic coma status: without hepatic coma Qualified Code(s): B19.20 - Unspecified viral hepatitis C without hepatic coma (3) Congestive heart failure: Status: Acute Qualifiers: Heart failure type: systolic Heart failure chronicity: acute Qualified Code(s): I50.21 - Acute systolic (congestive) heart failure Reason for Visit Reason for Visit: CHEST PAIN Brief History: Ede Maier is a 63 year old male who [facility] with chief complaint of chest pain. Pain started about 2 hours ago. Severe substernal. Patient has history of neurosyphilis, hepatitis C per chart. He is having significant chest pain currently. EKG showed a ST elevation NH lateral leads and aVL and V2. Per EMS patient is a full code at nursing facility. Hospital Course Hospital Course Patient underwent left heart cath. 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 Almost separate ostia. LAD has total thrombotic occlusion of proximal to mid vessel. S/p successful revascularization with 2 stents. First diagonal artery underwent balloon angioplasty. RCA is small non dominant artery. Left circumflex artery is large i n size and is dominant. No significant disease. Post procedure, the hospitalist team was consulted for medical management as well as pain management. Post cath, he did have some chest pain that resolved after a couple of days. Chest CTA was done that ruled out pulmonary embolus. He did have some biliary sludge, therefore gallbladder US was done that showed no gallbladder wall thickening or edema. Chest x-ray was done that showed no acute findings. Pots cath echo showed EF of 30-35% with grade 1 diastolic dysfunction. I discussed our recommendation of getting a lifevest placed for possible life threatening arrhythmias. At this time patient was agreeable, but wanted to be [facility] and wait there to be fitted. He was euvolemic on discharge. Right groin puncture site was clean, dry, intact w/o s/s of hematoma. He was discharged in stable condition on Metoprolol 50 mg BID, lisinopril 20 mg daily, Plavix, and aspirin. Patient will f/u with infectious disease on outpatient for history of hepatitis. Physical Exam Narrative: General: No apparent distress, healthy appearing, well nourished HENMT: normoceophalic Muskuloskeletal: Full ROM Lymphatic: no lymphedema noted Respiratory: Normal respiratory effort, clear to auscultation bilaterally throughout all lung you, no use of accessory muscles Cardio: No JVD, regular rate, regular rhythm, S1 S2 normal, no murmurs, peripheral pulses 2+ radial palpated bilaterally GI: Normal to inspection, nondistended Extremities: Full ROM, normal, normal capillary refill, no cyanosis or edema Neuro: Alert and oriented x4, no focal motor deficits Psych: Affect normal, denies suicidal ideation, mental status grossly normal Skin: right groin puncture site clean, dry, intact w/o s/s of hematoma Discharge Data Studies Completed and Pending Completed Studies During Hospitalization Category Date Time Status CTA chest [CT angio chest PE protcl 30312] Routine Cat Scan 08/05/24 18:25 Completed CXRP [XR chest 1V portable [id number]] Routine Exams 08/05/24 12:57 Completed CXRP [XR chest 1V portable [id number]] Routine Exams 08/07/24 09:50 Completed CXRP [XR chest 1V portable [id number]] Routine Exams 08/07/24 11:10 Completed XR chest 1V portable [id number] Stat Exams 08/04/24 19:39 Completed XR shoulder LT min 2V* [id number] Routine Exams 08/05/24 18:26 Completed CV. 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 Negative for pulmonary embolus. 2. Coronary artery atherosclerotic calcifications. 3. Cardiomegaly. 4. Trace pericardial effusion. 5. Bilateral dependent airspace infiltrates. 6. Large hiatal hernia. 7. Biliary sludge. 8. Several subcentimeter short axis nonspecific mediastinal lymph nodes. Shoulder X-Ray 08/05/24 18:26 IMPRESSION: No acute findings. Gallbladder Ultrasound 08/06/24 10:33 IMPRESSION: 1. Small amount of gallbladder sludge. Gallbladder is slightly hydropic which may be due to to prolonged fasting. No gallbladder wall thickening or edema. 2. Hepatic steatosis. Chest X-Ray 08/07/24 11:10 IMPRESSION: 1. Right-sided PICC line coursing cephalad unchanged in appearance. No acute finding in the chest otherwise. Laboratory Results WBC 9.91 10^3/uL (3.29-11.43) 08/06/24 05:05 RBC 4.48 10^6/uL (3.85-5.65) 08/06/24 05:05 Hgb 12.90 g/dL (11.27-16.99) 08/06/24 05:05 Hct 38.7 % (37-53) 08/06/24 05:05 MCV 86.4 fl (82-101) 08/06/24 05:05 MCH 28.8 pg (27-33) 08/06/24 05:05 MCHC 33.3 g/dL (30-55) 08/06/24 05:05 RDW 12.4 % (12.1-15.1) 08/06/24 05:05 Plt Count 195 10^3/cmm (157-399) 08/06/24 05:05 MPV 9.4 fL (7.4-10.4) 08/06/24 05:05 Neut % (Auto) 70.5 % 08/06/24 05:05 Lymph % (Auto) 16.4 % 08/06/24 05:05 Runnels % (Auto) 10.1 % 08/06/24 05:05 Eos % (Auto) 2.1 % 08/06/24 05:05 Baso % (Auto) 0.3 % 08/06/24 05:05 Neut # (Auto) 6.98 10^3/uL (1.8-7.7) 08/06/24 05:05 Lymph # (Auto) 1.6 10^3/uL (0.8-4.8) 08/06/24 05:05 Runnels # (Auto) 1.0 10^3/uL (0.2-0.9) H 08/06/24 05:05 Eos # (Auto) 0.2 10^3/uL (0.0-0.8) 08/06/24 05:05 Baso # (Auto) 0.0 10^3/uL (0.0-0.1) 08/06/24 05:05 Nucleated RBC % (auto) 0 % 08/06/24 05:05 Nucleated RBCs # 0.0 /100WBC 08/06/24 05:05 APTT 25.4 SECONDS (23.9-36.7) 08/05/24 02:36 Sodium 139 mmol/L (136-145) 08/07/24 02:48 Potassium 3.8 mmol/L (3.5-5.1) 08/07/24 02:48 Chloride 101 mmol/L (98-107) 08/07/24 02:48 Carbon Dioxide 27 mmol/L (22-29) 08/07/24 02:48 Anion Gap 14.8 (5-19) 08/07/24 02:48 BUN 11 mg/dL (8-23) 08/07/24 02:48 Creatinine 0.7 mg/dL (0.7-1.2) 08/07/24 02:48 GFR Calculation 114.6 mL/min (90-130) 08/07/24 02:48 Glucose 93 mg/dL (65-115) 08/07/24 02:48 Estimat Average Glucose 117 08/04/24 21:48 Hemoglobin A1c 5.7 % (4.0-6.0) 08/04/24 21:48 Calculated Osmolality 287 mOsm/kg (285-295) 08/07/24 02:48 Calcium 8.7 mg/dL (8.5-10.5) 08/07/24 02:48 Total Bilirubin 0.9 mg/dL (0.15-1.2) 08/07/24 02:48 AST 109 U/L (0-40) H 08/07/24 02:48 ALT 43 U/L (0-41) H 08/07/24 02:48 Alkaline Phosphatase 77 U/L (40-130) 08/07/24 02:48 Ammonia 36 umol/L (16-60) 08/06/24 11:36 Troponin T 5th Gen ng/L Cancelled 08/05/24 23:12 Troponin T Baseline 7396 ng/L (0-15) H* 08/05/24 23:12 Troponin T 120 Minute 6496 ng/L (0-15) H 08/06/24 01:24 Delta Troponin T -900 ABS# (0-10) L 08/06/24 01:24 Troponin T Hi Sens 6Hr 5595 ng/L (0-15) H 08/06/24 05:05 Troponin T Hi Sens 6Hr Delta -1801 ng/L (0-12) L 08/06/24 05:05 NT-Pro-B Natriuret Pep 98 pg/mL (0-125) 08/04/24 21:48 Total Protein 6.6 g/dL (6.6-8.7) 08/07/24 02:48 Albumin 3.6 g/dL (3.5-5.2) 08/07/24 02:48 Globulin 3.0 g/dL (1.3-4.6) 08/07/24 02:48 RPR Titer/FTA 1:2 H 08/06/24 11:36 RPR w/Rflx to Titer Reactive (NON-REACTIVE) A 08/06/24 11:36 Hepatitis A IgM Ab Non-reactive (Nonreactive) 08/06/24 11:36 Hep Bs Antigen Non-reactive (Nonreactive) 08/06/24 11:36 Hep Bs Antibody 205.6 (11.5-1000) 08/06/24 11:36 Hep B Core Total Ab Reactive (Nonreactive) H 08/06/24 11:36 Hepatitis C Antibody Reactive (Nonreactive) H 08/06/24 11:36 HCV RNA Qnt PCR Amp&Det Cancelled 08/06/24 12:45 HCV RNA (PCR) IUs/ml Cancelled 08/06/24 12:45 HCV RNA (PCR) IU log10 Cancelled 08/06/24 12:45 HIV 1&2 Ab & HIV 1 Ag Non-reactive (Non-Reactiv) 08/06/24 11:36 HIV 1&2 Antibody Non-reactive (Non-Reactiv) 08/06/24 11:36 Influenza A (PCR) Negative (Negative) 08/04/24 23:09 Influenza Type B (PCR) Negative (Negative) 08/04/24 23:09 RSV (PCR) Negative (Negative) 08/04/24 23:09 SARS-CoV-2 (PCR) Negative (Negative) 08/04/24 23:09 Procedures Performed STEMI Post-procedure diagnosis: other (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 Almost separate ostia. LAD has total thrombotic occlusion of proximal to mid vessel. S/p successful revascularization with 2 stents. First diagonal artery underwent balloon angioplasty. RCA is small non dominant artery. Left circumflex artery is large in size and is dominant. No significant disease Vitals Last Vital Signs Temp 99.2 F 08/07/24 04:45 Pulse 75 08/07/24 13:22 Resp 14 08/07/24 13:22 BP 152/100 08/07/24 13:22 Pulse Ox 95 08/07/24 13:22 O2 Del Method Room Air 08/07/24 04:45 Discharge Plan Discharge Patient Disposition: Home Condition: Stable Prescriptions: New tramadol 50 mg Tablet 50 mg PO Q8H PRN (Reason: Moderate Pain) 5 Days Qty: 15 0RF atorvastatin 40 mg Tablet 80 mg PO BEDTIME Qty: 90 0RF clopidogrel 75 mg Tablet 75 mg PO DAILY Qty: 90 3RF aspirin 81 mg Tablet,Delayed Release (Dr/Ec) 81 mg PO DAILY Qty: 90 3RF pantoprazole 40 mg Tablet,Delayed Release (Dr/Ec) 40 mg PO BID Qty: 30 0RF lisinopril 10 mg Tablet 20 mg PO DAILY Qty: 30 0RF metoprolol tartrate 25 mg Tablet 50 mg PO BID@0900,2100 Qty: 30 0RF Continued naloxone 2 mg/2 mL syringe kit 2 mg IM Q2M PRN (Reason: unknown) Rx Instructions: NTExceed 10 mg total dose/episode folic acid 1 mg Tablet 1 mg PO DAILY Qty: 30 0RF primidone 50 mg Tablet 150 mg PO QPM quetiapine [Seroquel] 300 mg Tablet 300 mg PO QPM acetaminophen 500 mg Tablet 500 mg PO Q6H PRN (Reason: Pain) cyanocobalamin (vitamin B-12) 1,000 mcg/mL Solution 1,000 mcg SUBCUT DAILY docusate sodium 100 mg Capsule 100 mg PO QAM alum-mag hydroxide-simeth 200-200-20 mg/5 mL Suspension 30 ml PO Q8H PRN (Reason: Constipation) Rx Instructions: administer between meals and at bedtime thiamine HCl (vitamin B1) [Vitamin B-1] 50 mg Tablet 50 mg PO DAILY camphor-menthol 0.2-3.5 % Gel 1 applic TOPICAL Q8H PRN (Reason: Pain) Rx Instructions: rub in gently and completely venlafaxine [Effexor XR] 150 mg Capsule,Extended Release 24hr 150 mg PO QAM trazodone 50 mg tablet 100 mg PO BEDTIME Discontinued famotidine 40 mg Tablet 40 mg PO QPM omeprazole 40 mg Capsule,Delayed Release(Dr/Ec) 40 mg PO BID propranolol 40 mg Tablet 40 mg PO BID ibuprofen 200 mg Tablet 600 mg PO Q8H PRN (Reason: Pain) Discharge Orders: Discharge Order (Routine); Ordered 08/07/24 Ordered By: Landy He Referrals: [facility] [Provider Group] - 09/09/24 10:00 am (hep C ) Marty Cunningham MD [Primary Care Provider] - ([facility] to schedule appointment ) Karen Bar FNP [Nurse Practitioner] - 7-10 days (We have notified your physician's clinic of the need for a follow-up appointment to be scheduled. If you have not heard from them within the next 2 business days, please call them directly. please call this appointment to [facility] [phone] please call them if you do not hear from them) Discharge Diet: Advance as tolerated and Cardiac Patient Instructions: Tramadol (By mouth), Coronary Angioplasty (DC), Coronary Intravascular Stent Placement (DC), Opioid Safety, Post Angiogram Home Care Instructions, Post Heart Attack Stoplight Activity Restrictions/Additional Instructions: Discussed with patient no heavy lifting more than a gallon of milk as well as going up or down steps for 3 days. No driving for 3 days. Monitor for and report signs or symptoms of bleeding. Monitor for and report s/s of infection such as fever 101 or greater, swelling, redness or pain to the groin. Plan of Treatment: Continue Aspirin and Plavix, lisinopril at 20 mg, metoprolol 50 mg. Dual antiplatelet therapy for at least 2 years, preferably 2. Life was ordered for Ef of 30-35%. Will f/u in the clinic in 7 days. Discharge Attestations Time Spent in Discharge Care*: less than 30 min Quality Metrics Clinical Quality Measures [ No reported AMI, CVA or VTE this stay] Coding Level of Care Code Acute Code for [facility] Fwd Diagnoses ST elevation myocardial infarction involving left anterior descending (LAD) coronary artery I21.02 Involved coronary artery: LAD coronary artery Hepatitis C virus infection without hepatic coma, unspecified chronicity B19.20 Viral hepatitis chronicity: unspecified Hepatic coma status: without hepatic coma Acute systolic congestive heart failure I50.21 Heart failure type: systolic Heart failure chronicity: acute
== END 2024-08-07 13:24 | disposition intermediate care facility (04) | DRG 321 ==
LOC: ER 19:52 → CCL 19:52 → ICU 21:32
PROVIDERS: Internal Medicine; Student in an Organized Health Care Education/Training Program; Admitting Provider Internal Medicine; Emergency Provider Emergency Medicine; PCP Internal Medicine; Visit Provider Internal Medicine
PROC: 027136Z Dilation of Coronary Artery, Two Arteries with Three Drug-eluting Intraluminal Devices, Percutaneous Approach (ICD-10-PCS; principal; 2024-08-04 20:00)
PROC: 027136Z Dilation of Coronary Artery, Two Arteries with Three Drug-eluting Intraluminal Devices, Percutaneous Approach (ICD-10-PCS; 2024-08-04 20:00)
DX: I21.02 ST elevation (STEMI) myocardial infarction involving left anterior descending coronary artery (principal); I50.21 Acute systolic (congestive) heart failure; A52.3 Neurosyphilis, unspecified; B19.20 Unspecified viral hepatitis C without hepatic coma; F32.9 Major depressive disorder, single episode, unspecified; K21.9 Gastro-esophageal reflux disease without esophagitis; I95.9 Hypotension, unspecified; K44.9 Diaphragmatic hernia without obstruction or gangrene; Z87.891 Personal history of nicotine dependence
CPT/HCPCS: 36573; 36592; 71045; 71275; 73030; 76705; 80048; 80053; 82140; 83036; 83880; 84484; 85025; 85347; 85730; 86592; 86705; 86706; 86709; 86803; 87340; 87522; 87637; 87806; 92920; 92978; 93005; 93306; 93454; 96374; 99152; 99153; 99285; C1725; C1753; C1769; C1874; C1887; C1894; C9600; J1171; J1644; J2250; J2270; J3010; J3490; J7030; Q9967

== ENCOUNTER 2024-08-09 00:38 | Emergency (ER) | payer MEDICAID, SELFPAY ==
[2024-08-09] VITALS (8 sets, daily range): BP systolic 90–107; BP diastolic 59–71; PULSE 86–101; RESP 16–23; O2SAT 94–97; BMI 38.0
--- NOTE | 2024-08-09 00:48 | ECG_ITS ---
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1960 Requested By: Aj Villalta Order Number: [id number] Caorn MD: BRANDY DOMINGUEZ Measurements Intervals [place] Rate: 91 P: 39 ND: 164 QRS: 2 QRSD: 97 T: 36 QT: 356 QTc: 440 Interpretive Statements SINUS RHYTHM LOW QRS VOLTAGE IN PRECORDIAL LEADS [QRS DEFLECTION < 1.0 mV IN CHEST LEADS] ANTEROLATERAL MYOCARDIAL INFARCTION , OF INDETERMINATE AGE [40+ ms Q WAVE IN I/aVL/V3-V6] Compared to ECG 08/06/2024 17:13:41 Left-axis deviation no longer present Myocardial infarct finding still present Electronically Signed On 08-12-2024 23:42:04 MARKETING STRATEGIST by BRANDY DOMINGUEZ [email or web address]
--- NOTE | 2024-08-09 00:57 | W.ED.WEAKNES ---
HPI - Weakness General: Chief complaint: Weakness Stated complaint: weakness Time Seen by Provider: 08/09/24 01:14 History of Present Illness: Patient presents to the ER by EMS from [facility] with complaints of hypotension. Patient said he has no complaints at all. He was just recently discharged here from a STEMI with stents yesterday or the day before. When nursing checked his blood pressure while he was asleep he said it was low they rechecked it a couple more times and he still said it was low and he did not like that so he sent him here for evaluation. Upon arrival here patient's blood pressure is 92/65. Patient does not endorse lightheaded dizziness or feel he is going to pass out. Patient is not having chest pain. Patient says he has no specific complaints but just does not feel good overall but is not for sure how he supposed to feel after having a STEMI and stents. When he was discharged this last time the sent him home on lisinopril 20 mg daily metoprolol 50 mg twice daily. As well as atorvastatin 80, Plavix 75, aspirin 81 patient is also have a LifeVest on Review of Systems General: Reports: 10 or more systems reviewed and unremarkable except in HPI and below PFSH ED PFSH: Medical History ST elevation myocardial infarction (STEMI) Mild benzodiazepine use disorder Family history of colon cancer History of colon polyps GERD (gastroesophageal reflux disease) Neurosyphilis Tobacco dependency COPD (chronic obstructive pulmonary disease) Drug use History of neurosyphilis Hepatitis C Major depressive disorder Alcohol use disorder Surgical History Hx of repair of left rotator cuff History of esophagogastroduodenoscopy (EGD) 20 yrs ago History of ankle surgery Right Hx of appendectomy History of surgery on left wrist History of shoulder surgery Family History Other Cancer Stroke Social History Smoking and tobacco/nicotine status: former use of tobacco/nicotine Alcohol intake: former Substance/Drug Use: current Physical Exam Const: COMMON NORMALS: no acute distress, average body habitus, patient oriented x3, no limitations, healthy appearing, alert and well nourished HENMT: COMMON NORMALS: normocephalic, atraumatic, hearing grossly normal bilaterally, external ears normal, Normal external nose present, moist oral mucous membranes and oropharynx normal HEAD & SCALP: normocephalic and atraumatic NOSE: Normal external nose present EXTERNAL EAR: Yes external ears normal Neck/C-Spine: COMMON NORMALS: no JVD Chest: COMMONS NORMALS: normal inspection of the chest and normal palpation of entire chest wall Resp: COMMON NORMALS: normal respiratory effort, No retractions, No use of accessory muscles and clear to auscultation bilaterally AUSCULTATION: clear to auscultation bilaterally Cardio: COMMON NORMALS: no JVD, regular rate, regular rhythm, S1 normal heart sound present, S2 normal heart sound present, No gallops present (Cardio), No clicks present (Cardio), No murmurs present (Cardio) and No rub (Cardio) RATE: regular rate RHYTHM: regular rhythm HEART SOUNDS: S1 normal heart sound present and S2 normal heart sound present GI: COMMON NORMALS: Normal to inspection, nondistended, normoactive bowel sounds present, Soft to palpation, non-tender, No hepatosplenomegaly present and no masses PALPATION: Yes Soft to palpation and Yes No hepatosplenomegaly present Neuro: COMMON NORMALS: patient oriented x3 SENSORIUM/ORIENTATION: Yes alert Course Vital Signs: Vital signs: Vital Signs Pulse Rate 87 08/09/24 03:16 Respiratory Rate 18 08/09/24 03:16 Blood Pressure 91/59 08/09/24 03:16 Pulse Oximetry 94 08/09/24 03:16 Oxygen Delivery Me thod Room Air 08/09/24 02:19 MDM - Weakness Medical Decision Making Rhythm strip and EKG sent to Dr. De Anda, he said not a STEMI despite progression of his old STEMI and his cardiac enzymes to be in the thousands probably 5 or 6000. He said we could place him observation and trend his troponins but if he is not having chest pain not short of breath and troponins are going down he would do anything different. When patient arrived patient has no complaints. Patient denies chest pain shortness of breath lightheaded dizzy syncope, just as he just does not feel good all over. EKG essentially unchanged, troponin still high at they are trending down. Initial troponin was 5077 2-hour was 4 845, potassium was 3.0. Patient was given 40 mill equivalents oral potassium. All of these was discussed with the patient. Patient still wants to go back to shelter. Patient will be discharged. Medical Records I reviewed the patient's medical records. Lab Data I reviewed the patient's lab results. 08/09/24 01:36 08/09/24 01:36 Laboratory Results WBC 7.75 10^3/uL (3.29-11.43) 08/09/24 01:36 RBC 4.16 10^6/uL (3.85-5.65) 08/09/24 01:36 Hgb 12.20 g/dL (11.27-16.99) 08/09/24 01:36 Hct 36.2 % (37-53) L 08/09/24 01:36 MCV 87.0 fl (82-101) 08/09/24 01:36 MCH 29.3 pg (27-33) 08/09/24 01:36 MCHC 33.7 g/dL (30-55) 08/09/24 01:36 RDW 12.6 % (12.1-15.1) 08/09/24 01:36 Plt Count 200 10^3/cmm (157-399) 08/09/24 01:36 MPV 10.3 fL (7.4-10.4) 08/09/24 01:36 Neut % (Auto) 71.2 % 08/09/24 01:36 Lymph % (Auto) 15.5 % 08/09/24 01:36 [place] % (Auto) 8.6 % 08/09/24 01:36 Eos % (Auto) 4.0 % 08/09/24 01:36 Baso % (Auto) 0.3 % 08/09/24 01:36 Neut # (Auto) 5.52 10^3/uL (1.8-7.7) 08/09/24 01:36 Lymph # (Auto) 1.2 10^3/uL (0.8-4.8) 08/09/24 01:36 [place] # (Auto) 0.7 10^3/uL (0.2-0.9) 08/09/24 01:36 Eos # (Auto) 0.3 10^3/uL (0.0-0.8) 08/09/24 01:36 Baso # (Auto) 0.0 10^3/uL (0.0-0.1) 08/09/24 01:36 Nucleated RBC % (auto) 0 % 08/09/24 01:36 Nucleated RBCs # 0.0 /100WBC 08/09/24 01:36 Sodium 133 mmol/L (136-145) L 08/09/24 01:36 Potassium 3.0 mmol/L (3.5-5.1) L 08/09/24 01:36 Chloride 98 mmol/L (98-107) 08/09/24 01:36 Carbon Dioxide 22 mmol/L (22-29) 08/09/24 01:36 Anion Gap 16.0 (5-19) 08/09/24 01:36 BUN 19 mg/dL (8-23) 08/09/24 01:36 Creatinine 1.1 mg/dL (0.7-1.2) 08/09/24 01:36 GFR Calculation 68.1 mL/min (90-130) L 08/09/24 01:36 Glucose 109 mg/dL (65-115) 08/09/24 01:36 Calculated Osmolality 279 mOsm/kg (285-295) L 08/09/24 01:36 Calcium 8.7 mg/dL (8.5-10.5) 08/09/24 01:36 Magnesium 2.0 mg/dL (1.7-2.3) 08/09/24 01:36 Total Bilirubin 1.0 mg/dL (0.15-1.2) 08/09/24 01:36 AST 54 U/L (0-40) H 08/09/24 01:36 ALT 28 U/L (0-41) 08/09/24 01:36 Alkaline Phosphatase 73 U/L (40-130) 08/09/24 01:36 Troponin T Baseline 5077 ng/L (0-15) H* 08/09/24 01:36 Troponin T 120 Minute 4845 ng/L (0-15) H 08/09/24 03:25 Delta Troponin T -232 ABS# (0-10) L 08/09/24 03:25 Total Protein 6.9 g/dL (6.6-8.7) 08/09/24 01:36 Albumin 3.7 g/dL (3.5-5.2) 08/09/24 01:36 Globulin 3.2 g/dL (1.3-4.6) 08/09/24 01:36 All radiology interpretation(s) finalized by discharge Discharge Plan Discharge Patient Disposition: Home Clinical Impression: Acute hypokalemia Hypotension Qualifiers: Hypotension type: hypotension due to drug Qualified Code(s): I95.2 - Hypotension due to drugs Condition: Stable Prescriptions: New potassium chloride [K-Tab] 20 mEq tablet extended release 20 meq PO DAILY Qty: 7 0RF No Action naloxone 2 mg/2 mL syringe kit 2 mg IM Q2M PRN (Reason: unknown) Rx Instructions: NTExceed 10 mg total dose/episode folic acid 1 mg Tablet 1 mg PO DAILY Qty: 30 0RF primidone 50 mg Tablet 150 mg PO QPM quetiapine [Seroquel] 300 mg Tablet 300 mg PO QPM acetaminophen 500 mg Tablet 500 mg PO Q6H PRN (Reason: Pain) cyanocobalamin (vitamin B-12) 1,000 mcg/mL Solution 1,000 mcg SUBCUT DAILY docusate sodium 100 mg Capsule 100 mg PO QAM alum-mag hydroxide-simeth 200-200-20 mg/5 mL Suspension 30 ml PO Q8H PRN (Reason: Constipation) Rx Instructions: administer between meals and at bedtime thiamine HCl (vitamin B1) [Vitamin B-1] 50 mg Tablet 50 mg PO DAILY camphor-menthol 0.2-3.5 % Gel 1 applic TOPICAL Q8H PRN (Reason: Pain) Rx Instructions: rub in gently and completely tramadol 50 mg Tablet 50 mg PO Q8H PRN (Reason: Moderate Pain) 5 Days Qty: 15 0RF atorvastatin 40 mg Tablet 80 mg PO BEDTIME Qty: 90 0RF clopidogrel 75 mg Tablet 75 mg PO DAILY Qty: 90 3RF aspirin 81 mg Tablet,Delayed Release (Dr/Ec) 81 mg PO DAILY Qty: 90 3RF pantoprazole 40 mg Tablet,Delayed Release (Dr/Ec) 40 mg PO BID Qty: 30 0RF lisinopril 10 mg Tablet 20 mg PO DAILY Qty: 30 0RF metoprolol tartrate 25 mg Tablet 50 mg PO BID@0900,2100 Qty: 30 0RF venlafaxine [Effexor XR] 150 mg Capsule,Extended Release 24hr 150 mg PO QAM trazodone 50 mg tablet 100 mg PO BEDTIME Discharge Orders: Discharge ED (Routine); Ordered 08/09/24 Ordered By: Aj Villalta Referrals: Marty Cunningham MD [Primary Care Provider] - 1 week Patient Instructions: Hypotension (ED), Hypokalemia (ED) Activity Restrictions/Additional Instructions: Your evaluation in the ER shows your troponins are still high but they are trending down. This is from your heart attack you had last week. Your blood pressure is on the lower side but you are not having any symptoms of this. This is from the new blood pressure medicine that protects your heart that they started you on. Your potassium is low you have been given oral potassium as replacement. Since you have no symptoms and you want to be discharged we will go ahead and discharge you with a prescription for potassium. Please follow-up with your family practice physician for recheck of your potassium within the next 7 days. Print Language: Sinhala Coding Level of Care Code ED Skull Grinder for Chg Fwd Related Data Home Medications ?Medication ?Instructions ?Recorded ?Confirmed naloxone 2 mg/2 mL syringe kit 2 mg IM Q2M PRN unknown 07/21/22 08/05/24 trazodone 50 mg tablet 100 mg PO BEDTIME 01/12/23 08/05/24 venlafaxine 150 mg 150 mg PO QAM 01/12/23 08/05/24 capsule,extended release 24 hr (Effexor XR) acetaminophen 500 mg tablet 500 mg PO Q6H PRN Pain 08/05/24 08/05/24 aluminum-mag hydroxide-simethicone 30 ml PO Q8H PRN Constipation 08/05/24 08/05/24 200 mg-200 mg-20 mg/5 mL oral susp camphor-menthol 0.2 %-3.5 % 1 applic topical Q8H PRN Pain 08/05/24 08/05/24 topical gel cyanocobalamin (vitamin B-12) 1,000 mcg SUBCUT DAILY 08/05/24 08/05/24 1,000 mcg/mL injection solution docusate sodium 100 mg capsule 100 mg PO QAM 08/05/24 08/05/24 primidone 50 mg tablet 150 mg PO QPM 08/05/24 08/05/24 quetiapine 300 mg tablet (Seroquel) 300 mg PO QPM 08/05/24 08/05/24 thiamine HCl (vitamin B1) 50 mg 50 mg PO DAILY 08/05/24 08/05/24 tablet (Vitamin B-1) Previous Rx's ?Medication ?Instructions ?Recorded folic acid 1 mg tablet 1 mg PO DAILY #30 tabs 04/21/21 aspirin 81 mg tablet,delayed 81 mg PO DAILY #90 tabs 08/07/24 release atorvastatin 40 mg tablet 80 mg (2 x 40 mg) PO BEDTIME #90 08/07/24 tabs clopidogrel 75 mg tablet 75 mg PO DAILY #90 tabs 08/07/24 lisinopril 10 mg tablet 20 mg (2 x 10 mg) PO DAILY #30 tabs 08/07/24 metoprolol tartrate 25 mg tablet 50 mg (2 x 25 mg) PO BID@0900,2100 08/07/24 #30 tabs pantoprazole 40 mg tablet,delayed 40 mg PO BID #30 tabs 08/07/24 release tramadol 50 mg tablet 50 mg PO Q8H PRN Moderate Pain 5 08/07/24 days #15 tabs potassium chloride 20 mEq 20 meq PO DAILY #7 tabs 08/09/24 tablet,extended release (K-Tab) Allergies Allergy/AdvReac Type Severity Reaction Status Date / Time codeine Allergy ALGY-Anaphy Verified 08/04/24 19:43 laxis diphenhydramine (From Allergy Unknown Verified 08/04/24 19:43 Benadryl) tuberculin, purified protein Allergy Unknown Verified 08/04/24 19:43 deriva (From Aplisol)
--- NOTE | 2024-08-09 01:23 | ECG_ITS ---
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: : 1960 Requested By: Aj Villalta Order Number: [id number] Reading MD: BRANDY DOMINGUEZ Measurements Intervals [place] Rate: 89 P: 61 OK: 179 QRS: -20 QRSD: 100 T: 47 QT: 385 QTc: 469 Interpretive Statements SINUS RHYTHM LOW QRS VOLTAGE IN PRECORDIAL LEADS [QRS DEFLECTION < 1.0 mV IN CHEST LEADS] ANTEROLATERAL MYOCARDIAL INFARCTION , PROBABLY RECENT [40+ ms Q WAVE IN I/aVL/V3-V6] ACUTE FL Compared to ECG 08/09/2024 00:48:59 No significant changes Electronically Signed On 08-12-2024 23:41:56 CREDIT RISK MANAGEMENT DIRECTOR by BRANDY DOMINGUEZ [email or web address]
[2024-08-09 02:22] LABS: Troponin(5th) Baseline 5077 ng/L (0-15)
[2024-08-09 02:41] LABS: Basophils % 0.3 %; Eosinophils # 0.3 10^3/uL (0.0-0.8); Hematocrit 36.2 % (37-53); Lymphocytes # 1.2 10^3/uL (0.8-4.8); Lymphocytes % 15.5 %; Mean Corpuscular HGB Conc 33.7 g/dL (30-55); Mean Corpuscular Hemoglobin 29.3 pg (27-33); Mean Platelet Volume 10.3 fL (7.4-10.4); Monocytes # 0.7 10^3/uL (0.2-0.9); Monocytes % 8.6 %; Neutrophils # 5.52 10^3/uL (1.8-7.7); Neutrophils % 71.2 %; Nucleated Red Blood Cells % 0 %; Platelet Count 200 10^3/cmm (157-399); Red Blood Count 4.16 10^6/uL (3.85-5.65); Red Cell Distribution Width 12.6 % (12.1-15.1); White Blood Count 7.75 10^3/uL (3.29-11.43)
[2024-08-09 03:43] LABS: Alanine Aminotransferase 28 U/L (0-41); Albumin Level 3.7 g/dL (3.5-5.2); Alkaline Phosphatase 73 U/L (40-130); Aspartate Amino Transferase 54 U/L (0-40); Blood Urea Nitrogen 19 mg/dL (8-23); Calcium 8.7 mg/dL (8.5-10.5); Carbon Dioxide 22 mmol/L (22-29); Chloride 98 mmol/L (98-107); Creatinine Clr Calc Pharmacy 75.6078; Globulin 3.2 g/dL (1.3-4.6); Glomerular Filtration Rate 68.1 mL/min (90-130); Glucose 109 mg/dL (65-115); Osmolality Calculated 279 mOsm/kg (285-295); Sodium 133 mmol/L (136-145); Total Protein 6.9 g/dL (6.6-8.7)
[2024-08-09 04:03] LABS: Troponin 5 2HR 4845 ng/L (0-15); Troponin 5 2HR Delta -232 ABS# (0-10)
[2024-08-09] MEDS: potassium chloride ER 20 mEq Tablet 40 MEQ PO (04:16)
--- NOTE | 2024-08-09 06:41 | PC.NURSE ---
[facility].
== END 2024-08-09 08:25 | disposition home or self-care (01) ==
PROVIDERS: Emergency Provider Emergency Medicine; PCP Internal Medicine
DX: E87.6 Hypokalemia (principal); I95.2 Hypotension due to drugs; Z79.02 Long term (current) use of antithrombotics/antiplatelets; Z79.82 Long term (current) use of aspirin; Z87.891 Personal history of nicotine dependence; J44.9 Chronic obstructive pulmonary disease, unspecified
CPT/HCPCS: 36415; 80053; 83735; 84484; 85025; 93005; 99284

== ENCOUNTER → 2024-09-08 15:30 | Outpatient (BNVA) | payer MEDICAID, SELFPAY | PROVIDERS: PCP Internal Medicine; Visit Provider Student in an Organized Health Care Education/Training Program | DX: B19.20 Unspecified viral hepatitis C without hepatic coma (principal); A52.3 Neurosyphilis, unspecified | CPT/HCPCS: 36415; 80053; 81596; 86592; 87902 ==

== ENCOUNTER → 2024-09-09 13:56 | Outpatient (BNVA) | payer MEDICAID, SELFPAY | PROVIDERS: PCP Internal Medicine; Visit Provider Nurse Practitioner Family | DX: Z09 Encounter for follow-up examination after completed treatment for conditions other than malignant neoplasm (principal); I50.21 Acute systolic (congestive) heart failure; I95.2 Hypotension due to drugs | CPT/HCPCS: 99214 ==

== ENCOUNTER → 2024-10-14 08:40 | Outpatient (BNVA) | payer MEDICAID, SELFPAY | PROVIDERS: PCP Internal Medicine; Visit Provider Nurse Practitioner Family | DX: I50.21 Acute systolic (congestive) heart failure (principal); I25.2 Old myocardial infarction; I25.10 Atherosclerotic heart disease of native coronary artery without angina pectoris; R42 Dizziness and giddiness; F41.9 Anxiety disorder, unspecified; I95.9 Hypotension, unspecified; Z87.891 Personal history of nicotine dependence | CPT/HCPCS: 99214 ==

== ENCOUNTER 2024-11-03 06:00 | Outpatient (CLI) | payer MEDICAID, SELFPAY ==
--- NOTE | 2024-11-03 06:15 | USCV_ITS ---
Ede Maier Age: 64 Gender: M : 1960 Exam Date: 11/03/2024 06:30 Ordering Phys: Landy He NP Technologist: Exam Location: [facility]_ Indication: ef BP: 110 / 68 HR: Rhythm: Sinus Technical Quality: Adequate MEASUREMENTS (Male / Female) Normal Values 2D ECHO LV Diastolic Diameter PLAX 4.4 cm 4.2 - 5.9 / 3.9 - 5.3 cm IVS Diastolic Thickness 1.4 cm 0.6 - 1.0 / 0.6 - 0.9 cm IVS Systolic Thickness 1.8 cm LVPW Diastolic Thickness 1.2 cm 0.6 - 1.0 / 0.6 - 0.9 cm LVPW Systolic Thickness 1.7 cm LVOT Diameter 2.1 cm LV Ejection Fraction 2D Teich 66.7 % LV Ejection Fraction MOD 4C 55.5 % LV Ejection Fraction MOD 2C 47.9 % LV Ejection Fraction 2C AL 46.1 % LA Diameter 3.8 cm RA Systolic Volume 4C AL 25.4 ml RA Systolic Volume 4C MOD 23.9 ml Aorta at Sinotubular Diameter 3.2 cm M-MODE LA Ao Ratio MM 0.9 AV Cusp Separation MM 2.3 cm FINDINGS Left Ventricle Normal LV size with a diminished ejection fraction of 48%. Mild hypokinesis of the mid and apical septum. Mild diffuse hypokinesis of the LV apex Right Ventricle Possibly normal size LV ejection fraction Right Atrium The right atrium is normal in size. Left Atrium The left atrium is normal in size. Mitral Valve No gross abnormalities noted Aortic Valve No gross abnormalities noted Tricuspid Valve No gross abnormalities noted Pulmonic Valve Pulmonic valve not well visualized. Pericardium Normal pericardium without effusion. Aorta Normal aortic annulus size. IVC Inferior vena cava not visualized. CONCLUSIONS Normal LV size with a diminished ejection fraction of 48%. Wall motion abnormalities as mentioned above Possibly normal chamber sizes No gross morphologic valvular abnormalities. There is no pericardial effusion. There are no intracardiac masses. Compared to the study from 08/04/2024, there is improvement in the LV ejection fraction from 30 - 35% to 48% Dr Jenifer Martin MD [facility] (Electronically Signed) Final Date: 04 Nov 2024 08:51 S
== END 2024-11-03 06:01 | disposition home or self-care (01) ==
PROVIDERS: PCP Internal Medicine; Visit Provider Nurse Practitioner Family
DX: I50.21 Acute systolic (congestive) heart failure (principal); R93.1 Abnormal findings on diagnostic imaging of heart and coronary circulation
CPT/HCPCS: 93308

== ENCOUNTER → 2024-12-01 14:41 | Outpatient (BNVA) | payer MEDICAID, SELFPAY | PROVIDERS: PCP Internal Medicine; Visit Provider Internal Medicine | DX: I50.21 Acute systolic (congestive) heart failure (principal); I25.10 Atherosclerotic heart disease of native coronary artery without angina pectoris; Z87.891 Personal history of nicotine dependence; Z95.5 Presence of coronary angioplasty implant and graft | CPT/HCPCS: 99214 ==

== ENCOUNTER → 2025-01-27 10:58 | Outpatient (BNVA) | payer MEDICAID, SELFPAY | PROVIDERS: PCP Internal Medicine; Visit Provider Student in an Organized Health Care Education/Training Program | DX: A52.3 Neurosyphilis, unspecified (principal); B19.20 Unspecified viral hepatitis C without hepatic coma | CPT/HCPCS: 36415; 86592; 86705; 86706; 86709; 86803; 87340; 87522 ==